=== PATIENT | male | born 1940 | race Caucasian/White ===

== ENCOUNTER → 2016-03-12 | Outpatient (CLI) | payer MEDICARE ==
[~2016-03-12] MED LIST: ACHD5005 PO; ASPI-84 PO; AZTH250C PO; BENZ100C18 PO; BNZ40T; BP MED; CEPH500C PO; CPR500T PO; DOXA2TAB2 PO; DXZS4T PO; EZET1TAB36 PO; FISH1200 PO; HYDR-3583 PO; I VITE; LSNP20T PO; METR500T PO; MULT-275 PO; MULT-927 PO; OMEG1CAP51 PO; SIMV80TA3 PO; SULF1TAB35 PO; UBID1CAP51 PO; UBID300C PO; VIT1TABL83 PO; [UNRECOGNIZED DRUG - CODE] PO; [UNRECOGNIZED DRUG - REMARK]
--- OUTSIDE RECORDS SUMMARY | 2016-03-12 11:08 | XMS REPORT | Continuity of Care Document ---
Author Author [facility] Organization [facility] Address Unknown Phone Unavailable Care Team Providers Care Gis Scientist Name Role Phone Diana Valles III PCP [phone] Source Comments Some departments are not documenting in the electronic medical record. If you do not see the information that you expected, contact Release of Information in the Health Information Management department at [phone] for further assistance in locating additional records.[facility] Active Allergies and Adverse Reactions Allergen Noted Date Severity Reactions Comments Demerol 12/19/2008 ANAPHYLAXIS Reglan 12/19/2008 NAUSEA AND VOMITING Current Medications Prescription Sig. Disp. Refills Start End Date Status Date doxazosin (CARDURA) 2 mg Take 1 Tab by mouth Active tablet Daily. benazepril (LOTENSIN) 40 Take 1 Tab by mouth Active mg tablet Daily. EZETIMIBE/SIMVASTATIN Take 1 Tab by mouth Active (VYTORIN 10-80 PO) Daily. coenzyme Q10,+, (CO Q-10) Take 4 Caps by mouth Active 100 mg Cap Daily. (400mg) vitamins, multiple Cap Take 1 Cap by mouth Active Daily. VIT C/DL-E Take 1 Tab by mouth Active AC/LUT/COPPER/ZNOX Daily. (PRESERVISION PO) ibuprofen (MOTRIN) 200 mg Take 4 Tabs by mouth Active tablet Daily as needed for Pain. ASPIRIN/CAFFEINE (ANACIN Take 2 Tabs by mouth Active PO) Daily as needed. omeprazole DR,+, Take 1 Cap by mouth Active (PRILOSEC) 20 mg capsule Daily. aspirin EC 81 mg tablet Take 1 Tab by mouth 0 0 01/03/20 Active Daily. 09 oxycodone/acetaminophen Take 1-2 Tabs by mouth 40 0 /25/20 Active (PERCOCET) 5/325 mg Every 4 Hours as needed 09 tablet for Pain. hyoscyamine (LEVSIN/SL) 1 Tab Every 4 Hours as 30 0 01/04/20 Active 0.125 mg tablet needed. 09 senna/docusate Take 2 Tabs by mouth 30 0 01/04/20 Active (SENOKOT-S) 8.6/50 mg Daily. 09 tablet [place]-3 Fatty Take 1 Cap by mouth Twice 0 0 01/04/20 Active Acids-Vitamin E (FISH Daily. 09 OIL) 1,000 mg Cap levofloxacin (LEVAQUIN) Take 1 Tab by mouth Every 15 0 01/04/20 Active 250 mg tablet 24 Hours. 09 polymyxin/bacitracin/laura/ Apply to affected area 1 tube 0 01/04/20 Active HC (CORTISPORIN) 1 % Three Times Daily. 09 topical ointment oxybutynin XL (DITROPAN Take 1 Tab by mouth 15 0 01/04/20 Active XL) 15 mg tablet Daily. 09 Active Problems Problem Noted Date Prostate cancer (HCC) 01/03/2009 Social History Tobacco Use Types Packs/Day Years Used Date Former Smoker Comments: smoked cigars on and off till about 6 yrs ago Alcohol Use Drinks/Week oz/Week Comments No drank socially on weekends when young - not now Last Filed Vital Signs Vital Sign Reading Time Taken Blood Pressure 119/71 01/03/2009 3:00 PM SEASONING MIXER Pulse 78 01/03/2009 3:00 PM SEASONING MIXER Temperature 37.4 C (99.3 F) 01/03/2009 3:00 PM SEASONING MIXER Respiratory Rate - - Height 1.676 m (5' 6") 12/19/2008 12:00 PM SEASONING MIXER Weight 74.4 kg (164 lb 0.4 oz) 12/19/2008 12:00 PM SEASONING MIXER Body Mass Index 26.49 12/19/2008 12:00 PM SEASONING MIXER Oxygen Saturation 94% 01/03/2009 3:00 PM SEASONING MIXER Plan of Care Health Maintenance Due Date Last Done Comments Physical (Comprehensive) 08/30/1947 Exam Pertussis Vaccine 08/30/1951 Tetanus Vaccine 1957 Colorectal Cancer 1990 Screening Shingles Vaccine 2000 Prevnar/Pneumovax (#1) 2005 Influenza Vaccine 10/11/2015 Results from Last 3 Months Not on file
--- NOTE | 2016-03-12 15:15 | Diagnostic Imaging Report ---
Bilateral hand radiographs. INDICATION: Bilateral hand pain. FINDINGS: Left hand: There are advanced degenerative changes in the wrist involving the radiocarpal and intercarpal joints particularly along the radial aspect of the wrist. There is also widening of the scapholunate interval with displacement of the lunate and sclerotic changes which may relate to osteonecrosis. There is an ulna minus deformity. 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 The MCP joints demonstrate no significant arthritic changes or erosions. Mild degenerative changes at the DIP joints seen. Right hand: Sclerotic changes at the intercarpal joints along the radial aspect seen. There is widening of the scapholunate interval and secondary degenerative changes seen. There is mild degenerative change at the DIP joints. No significant arthritic changes at the MCP joints. No significant erosions seen to suggest rheumatoid arthritis. There is a radiopaque dense focus measuring 3 mm in the proximal aspect of the right index finger probably a metallic foreign body. It is near the radial cortex of the proximal phalanx shaft. 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 No erosive arthritis finding seen. Dictated by: Dictated on workstation # [id number]
== END ==
LOC: RAD 11:04
PROVIDERS: ATTEND Internal Medicine
DX: M19.032 Primary osteoarthritis, left wrist (principal)

== ENCOUNTER → 2016-07-03 | Outpatient (CLI) | payer MEDICARE ==
--- NOTE | 2016-07-03 16:11 | Diagnostic Imaging Report ---
PROCEDURE: CT abdomen without contrast. TECHNIQUE: Multiple contiguous axial images were obtained through the abdomen without the use of intravenous contrast. INDICATION: Incisional hernia. FINDINGS: The right lung base is unremarkable. There is significant elevation of the left hemidiaphragm with abdominal contents projecting at the mid to lower chest, not included in this exam. CT chest evaluation could be obtained if such evaluation is needed. The liver, the spleen, the adrenals, and the pancreas appear grossly unremarkable for an unenhanced exam. The gallbladder demonstrates no calcified stones. There is prominent distention of the gallbladder however. No pericholecystic fluid or wall thickening is seen. 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 The abdominal aorta is normal in caliber. No paraaortic significantly enlarged lymph node is seen. There is a fat-containing supraumbilical ventral hernia with a 9 mm transverse by 1.1 cm craniocaudal defect size. Slight thickening of the hernia margin may relate to sequela of panniculitis or omental infarct. No free fluid or fluid collection in the abdomen is seen. The osseous structures demonstrate fusion hardware involving L2-L5 levels. IMPRESSION: 1. There is a relatively small fat-containing ventral hernia with 1.1 cm sized defect the to the right side of the midline and approximately 6.5 cm above the umbilicus. 2. Horseshoe kidney. 3. Significant chronic elevation of the left hemidiaphragm with stomach and other left subphrenic abdominal contents projecting into the lower to mid chest not included in this exam. Dictated by: Dictated on workstation # [id number]
== END ==
LOC: RAD 13:37
PROVIDERS: ATTEND Internal Medicine
DX: K43.2 Incisional hernia without obstruction or gangrene (principal); Q63.1 Lobulated, fused and horseshoe kidney
CPT/HCPCS: 74150

== ENCOUNTER 2016-07-25 08:09 | Outpatient (CLI) | payer MEDICARE ==
[~2016-07-25] VITALS: Ht 167.6 cm; Wt 70.8 kg
[2016-07-25 08:19] VITALS: BP 168/88
[2016-07-25] MEDS ORDERED: PRAV40TA2 PO (08:23)
[2016-07-25] MEDS ORDERED: OMEG-109 PO (08:23)
[2016-07-25] MEDS ORDERED: LISI10TA2 PO (08:23)
[2016-07-25] MEDS ORDERED: HYDR200T46 PO (08:23)
[2016-07-25 09:09] LABS: BASOPHILS % (AUTO) 0 % (0-10); EOSINOPHILS % (AUTO) 0 % (0-10); LYMPHOCYTES % (AUTO) 22 % (12-44); MEAN CORPUSCULAR HEMOGLOBIN 30 PG (25-34); MEAN CORPUSCULAR HGB CONC 34 G/DL (32-36); MEAN CORPUSCULAR VOLUME 90 FL (80-99); MEAN PLATELET VOLUME 11.2 FL (7.4-10.4); MONOCYTES # (AUTO) 0.6 X 10^3 (0.0-1.0); MONOCYTES % (AUTO) 13 % (0-12); NEUTROPHILS % (AUTO) 65 % (42-75); PLATELET COUNT 155 10^3/uL (130-400); RED BLOOD COUNT 4.18 10^6/uL (4.35-5.85); RED CELL DISTRIBUTION WIDTH 13.3 % (10.0-14.5); WHITE BLOOD COUNT 4.6 10^3/uL (4.3-11.0)
[2016-07-30] MEDS ORDERED: HYDR-3812 PO (14:16)
== END 2016-07-25 08:50 | disposition home or self-care (01) ==
LOC: PREOP 08:09
PROVIDERS: ATTEND Surgery
DX: Z01.818 Encounter for other preprocedural examination (principal); Z01.812 Encounter for preprocedural laboratory examination; Z11.2 Encounter for screening for other bacterial diseases; K43.9 Ventral hernia without obstruction or gangrene
CPT/HCPCS: 36415; 85025; 87081; 93005

== ENCOUNTER 2016-07-30 08:06 | Day surgery (SDC) | payer MEDICARE ==
[~2016-07-30] VITALS: Ht 167.6 cm; Wt 70.8 kg
[~2016-07-30 08:06] MED LIST changes: +HYDR200T46 PO; +LISI10TA2 PO; +OMEG-109 PO; +PRAV40TA2 PO
[2016-07-30] MEDS: LACTATED RINGERS 1,000 ML IV PRN ×2 (08:30→11:45)
[2016-07-30] MEDS ORDERED: CATHETER FLUSH 10 ML SYR IV PRN (09:00)
[2016-07-30] MEDS ORDERED: oxyCODONE ER 10 MG (OxyCONTIN CR) TAB PO ONE ×2 (09:00→14:15)
[2016-07-30] MEDS ORDERED: ceFAZolin 1 GM/NS 50 ML IVPB IV ONE ×2 (09:00)
[2016-07-30] MEDS ORDERED: KETOROLAC 30 MG/ML VIAL IV SCH (09:00)
[2016-07-30] MEDS ORDERED: CELECOXIB 100 MG (CeleBREX) CAP PO ONE ×2 (09:00→14:15)
[2016-07-30] MEDS ORDERED: ACETAMINOPHEN 500 MG TAB (TYLENOL) PO ONE ×2 (09:00→14:15)
[2016-07-30] MEDS ORDERED: PREGABALIN 75 MG (LYRICA) CAP PO ONE ×2 (09:00→14:15)
--- NOTE | 2016-07-30 09:13 | Progress Note-Pre Operative ---
Pre-Operative Progress Note H&P Reviewed The H&P was reviewed, patient examined and no changes noted. Date Seen by Provider: Jul 30, 2016 Time Seen by Provider: 09:13 Date H&P Reviewed: Jul 30, 2016 Time H&P Reviewed: 09:13 Pre-Operative Diagnosis: ventral hernia JANIS DUVALL MD Jul 30, 2016 9:13 am
[2016-07-30] MEDS ORDERED: FAMOTIDINE 20MG/2ML IV (PEPCID) IV ONE (09:15)
[2016-07-30] MEDS ORDERED: BUP/EPI 0.25% 1:200,000 (MARCAINE) 10 ML VIAL IJ ONE (09:44)
[2016-07-30] MEDS ORDERED: LIDOCAINE PF 2% 5 ML (XYLOCAINE) VIAL ONE (09:45)
[2016-07-30] MEDS ORDERED: proPOfol 200 MG/20 ML (DIPRIVAN) VIAL IV ONE (09:45)
[2016-07-30] MEDS ORDERED: MIDAZOLAM 2 MG/2 ML (VERSED) VIAL ONE (09:46)
[2016-07-30] MEDS ORDERED: fentaNYL INJECTION 100 MCG/2 ML AMP ONE (09:46)
[2016-07-30] MEDS ORDERED: SEVOFLURANE (ULTANE) 15 ML INHAL SOLN ONE ×4 (09:52→12:55)
[2016-07-30] MEDS ORDERED: ROCURONIUM 50 MG/5 ML (ZEMURON) VIAL IV ONE (09:52)
[2016-07-30] MEDS ORDERED: LACTATED RINGERS 1,000 ML IV ONE ×2 (09:52→12:55)
[2016-07-30] MEDS ORDERED: KETAMINE HCL 100 MG/ML 5 ML VIAL ONE (11:14)
[2016-07-30 12:21] VITALS: BP 162/92
[2016-07-30] MEDS ORDERED: PHENYLEPHRINE 100 MCG/ML 10 ML (ANESTHESIA) SYR ONE (12:21)
[2016-07-30] MEDS ORDERED: PHENYLEPHRINE INJ 10 MG/ML (NEO-SYNEPHRINE 1%) ONE (12:21)
[2016-07-30] MEDS ORDERED: NEOSTIGMINE (BLOXIVERZ ) 1 MG/1ML 10 ML VIAL ONE (12:55)
[2016-07-30] MEDS ORDERED: GLYCOPYRROLATE 0.2 MG/ML (ROBINUL) 2 ML VIAL ONE (12:55)
[2016-07-30] MEDS ORDERED: ONDANSETRON 4 MG/2 ML (SDV) Z0FRAN ONE (12:55)
[2016-07-30] MEDS ORDERED: ONDANSETRON 4 MG/2 ML (SDV) Z0FRAN IVP PRN (13:15)
[2016-07-30] MEDS: morphine INJ 10 MG/ML 1ML (SYR OR VIAL) IVP PRN ×2 (13:23→13:41)
[2016-07-30 14:00] VITALS: BP 165/93
--- NOTE | 2016-07-30 14:14 | Progress Note-Post Operative ---
Post-Operative Progess Note Surgeon (s)/High Tension Tester (s) Surgeon JANIS DUVALL MD High Tension Tester: Not applicable Pre-Operative Diagnosis ventral hernia Post-Operative Diagnosis Same Procedure & Operative Findings Date of Procedure 07/30/16 Procedure Performed/Findings robotic assisted repair with mesh Anesthesia Type Gen. Estimated Blood Loss Estimated blood loss (mL): Minimal Specimens/Packing Specimens Removed none JANIS DUVALL MD Jul 30, 2016 2:14 pm
[2016-07-30] MEDS ORDERED: morphine INJ 10 MG/ML 1ML (SYR OR VIAL) IV PRN (14:15)
[2016-07-30] MEDS ORDERED: HYDR-3812 PO ×2 (14:16)
--- NOTE | 2016-07-30 14:17 | Discharge Inst-Simple/Standard ---
Discharge Inst-Standard Discharge Medications New, Converted or Re-Newed RX: RX on Chart Patient Instructions/Follow Up Plan of Care/Instructions/FU: Dressings off in 48 hours. Follow-up in a month Activity as Tolerated: No Goal: No lifting over 10 pounds Discharge Diet: No Restrictions JANIS DUVALL MD Jul 30, 2016 2:17 pm
[2016-07-30] MEDS ORDERED: HYDR200T PO (14:54)
[2016-07-30 16:23] VITALS: BP 147/87
[2016-07-30] MEDS: HYDROXYCHLOROQUINE 200 MG (PLAQUENIL) TAB PO SCH (16:49)
[2016-07-30 20:03] VITALS: BP 126/72
--- NOTE | 2016-07-30 22:24 | OPERATIVE REPORT ---
DATE OF SERVICE: 07/30/2016 PREOPERATIVE DIAGNOSIS: Ventral hernia. POSTOPERATIVE DIAGNOSIS: Ventral hernia. OPERATION: Robotic-assisted repair of ventral hernia with mesh. SURGEON: Janis Duvall MD ANESTHESIA: General anesthesia. BLOOD LOSS: Minimal. FLUIDS: 1500 mL of crystalloids. TYPE OF WOUND: Type 1 (clean wound). INDICATION FOR PROCEDURE: This gentleman presented with a symptomatic ventral hernia just superior and lateral to the umbilicus. He was offered minimally invasive repair with robotic assistance and mesh reinforcement. Informed consent was obtained after reviewing the operative details. DESCRIPTION OF PROCEDURE: He was placed supine on the operating table and general anesthesia induced using an endotracheal tube. A gram of Ancef was administered intravenously as prophylaxis against wound infection. Sequential compression devices were placed around his legs to minimize the risk of venous thrombosis. Abdomen was prepared and draped in the usual sterile manner. Pneumoperitoneum was established using a Veress needle introduced over the left subcostal margin, along the mid clavicular line. Intraabdominal pressure was initially maintained at 15 mmHg. A 12 mm trocar was placed and anatomy visualized using the 30 degree high definition laparoscope associated with the Clarizeni system. Omentum was adherent to the midline along the upper abdomen. Under direct view, I placed another 12 mm trocar over the left side of the abdomen, along the mid axillary line, followed by an 8 mm trocar over the left lower quadrant. An additional 8 mm trocar was placed over the left subcostal margin far posteriorly, to facilitate triangulation. The left side of the patient's body was lifted up on a soft roll to facilitate triangulation of the robotic system. It was then docked in place. Omentum was taken down using scissors revealing a total of three defects between 1 and 2 cm in diameter along the upper abdomen. These were closed using 0 V-Loc suture in a continuous fashion. The repair was then reinforced using a polypropylene mesh measuring 8.5 x 13.4 cm in diameter. The mesh was held up using a self-retaining balloon system to facilitate fixation. The edges of the mesh were secured using 2-0 V-Loc sutures with robot assistance. Hemostasis was satisfactory and the operation concluded. Incisions were closed using #1 Vicryl for the muscular layer and 4-0 Vicryl for skin, in a subcuticular fashion. Marcaine 0.25% with epinephrine was infiltrated along the incisions, both preemptively and at the conclusion of the operation. He tolerated the procedure well, was extubated in the operating room and taken to the recovery room in stable condition. [place], sponges and instruments were correct. Job ID: [id number] DocumentID: [id number] Dictated Date: 07/30/2016 14:03:30 Chin Strap Maker Date: 07/30/2016 22:12:17 Dictated By: JANIS DUVALL MD MTDD
[2016-07-30 23:20] VITALS: BP 145/79
[2016-07-31 04:22] VITALS: BP 145/76
[2016-07-31] MEDS: HYDROXYCHLOROQUINE 200 MG (PLAQUENIL) TAB PO SCH ×2 (06:16→16:31)
[2016-07-31] MEDS: morphine INJ 10 MG/ML 1ML (SYR OR VIAL) IV PRN ×2 (07:51→13:02)
[2016-07-31 07:54] VITALS: BP 144/85
[2016-07-31] MEDS ORDERED: ASPIRIN E.C. 81 MG (ECOTRIN) TAB PO SCH (09:00)
[2016-07-31] MEDS ORDERED: NON-FORMULARY MEDICATION 1 EA EA (Pravastatin Sodium 40 MG) PO SCH (09:00)
[2016-07-31] MEDS ORDERED: lisINopril 10 MG (PRINIVIL) TAB PO SCH (09:00)
--- NOTE | 2016-07-31 11:52 | Progress Note-Standard ---
Standard Progress Note Progress Notes/Assess & Plan Date Seen by Provider: Jul 31, 2016 Time Seen by Provider: 09:20 Progress/Assessment & Plan Vital signs stable. Tolerating diet. Incisional pain inadequately controlled. We'll use fentanyl and possibly discharge this afternoon Final Diagnosis Ventral hernia JANIS DUVALL MD Jul 31, 2016 11:52
[2016-07-31 12:00] VITALS: BP 148/84
[2016-07-31] MEDS ORDERED: BISACODYL 10 MG SUPP (DULCOLAX) ONE (14:26)
--- NOTE | 2016-07-31 14:52 | Anesthesia-General Post-Op ---
General Patient Condition Mental Status/LOC: Same as Preop Cardiovascular: Satisfactory Nausea/Vomiting: Absent Respiratory: Satisfactory Pain: Controlled Complications: Absent Post Op Complications Complications None Follow Up Care/Instructions Patient Instructions None needed. Anesthesia/Patient Condition Patient Condition Patient is doing well, no complaints, stable vital signs, no apparent adverse anesthesia problems. No complications reported per nursing. CARLY GARCIA CRNA Jul 31, 2016 14:51
[2016-07-31 15:20] VITALS: BP 122/75
[2016-07-31] MEDS ORDERED: fentaNYL INJECTION 100 MCG/2 ML AMP IVP PRN (15:45)
[2016-07-31] MEDS ORDERED: KETOROLAC 15 MG/ML VIAL IVP ONE (15:45)
[2016-07-31] MEDS ORDERED: HYDROcodone/APAP 5 MG/325 MG (LORTAB) TAB PO PRN (15:45)
[2016-07-31] MEDS ORDERED: CALCIUM CARBONATE 500 MG (TUMS) TAB.CHEW ONE ×2 (17:03→18:26)
--- OUTSIDE RECORDS SUMMARY | 2016-07-31 18:06 | XMS REPORT | CCD ---
Author Author MARY GORDON Unknown Address [address] [facility] [address] [place], [place] [id number] Care Team Providers Care Blood Bank Laboratory Technologist Name Role Phone BARBARA CERVANTES, SAI Ortiz Attphys SAI JIMENEZ MD Prisurroopa Vital Signs Unknown or Not Available. Allergies Allergy Code Allergy Type Reaction Status REGLAN 9230 Drug allergy Active DEMEROL 073118 Drug allergy Active Procedures Unknown or Not Available. History of Immunizations Unknown or Not Available. Problems Problem Code Start Date Resolved Date Status DEGENERATIVE JOINT DISEASE OF RIGHT KNEE 71971 07/13/2013 Active Post surgical pain [id number] 07/13/2013 Active Results Unknown or Not Available. Active Medications Medication Code Dose Units Frequency Route Modification Start Date/Time Aspirin 325MG Oral Tablet, Enteric Coated 863379 1 TABLET EVERY 12 HOURS BY MOUTH 07/15/2013 16:22 Prescription Detail 1 TABLET BY MOUTH EVERY 12 HOURS begin 24hrs after the last xarelto dose APAP/Hydrocodone Bitartrate 325MG-10MG Oral Tablet 165343 1/2 - 1 TABLET NEEDED EVERY 4 HR BY MOUTH 07/2013 16:21 Prescription Detail 1/2 - 1 TABLET BY MOUTH NEEDED EVERY 4 HR Docusate Sodium 100MG Oral Capsule 8488993 100 MILLIGRAMS TWO TIMES A DAY BY MOUTH 07/15/2013 16:21 Prescription Detail 100 MILLIGRAMS BY MOUTH TWO TIMES A DAYHold with loose stools Aspirin 81MG Oral Tablet 140619 81 MILLIGRAMS DAILY ORAL 07/15/2013 16:20 Prescription Detail 81 MILLIGRAMS ORAL DAILY Hold until ASA EC 325 completed CALCIUM 0 1 EACH DAILY ORAL 07/15/2013 16:20 Prescription Detail 1 EACH ORAL DAILY COQ10 0 100 MILLIGRAMS EVENING ORAL 07/15/2013 16:20 Prescription Detail 100 MILLIGRAMS ORAL EVENING Doxazosin 2MG Oral Tablet 954291 2 MILLIGRAMS EVENING ORAL 07/15/2013 16:20 Prescription Detail 2 MILLIGRAMS ORAL EVENING FISH OIL-D3 0 1200 MILLIGRAMS DAILY ORAL 07/15/2013 16:20 Prescription Detail 1200 MILLIGRAMS ORAL DAILY Lisinopril 20MG Oral Tablet 216194 20 MILLIGRAMS EVENING ORAL 07/15/2013 16:20 Prescription Detail 20 MILLIGRAMS ORAL EVENING Multivitamin Oral Tablet 0159809 1 EACH DAILY ORAL 07/15/2013 16:20 Prescription Detail 1 EACH ORAL DAILY Simvastatin 80MG Oral Tablet 541480 80 MILLIGRAMS EVENING ORAL 07/15/2013 16:20 Prescription Detail 80 MILLIGRAMS ORAL EVENING VISION FORMULA 0 1 EACH DAILY ORAL 07/15/2013 16:20 Prescription Detail 1 EACH ORAL DAILY VITAMIN B-12 0 1 EACH DAILY ORAL 07/15/2013 16:20 Prescription Detail 1 EACH ORAL DAILY Medications Administered During Visit Unknown or Not Available. 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 Discharge Instructions You were admitted to [facility] on 06/21/2015 07:53 with a principal diagnosis of Secondary osteoarthritis, left wrist You were discharged from [facility] on 06/21/2015 09:00 Should you have any questions prior to discharge, please contact a member of your healthcare team. If you have left the hospital and have any questions, please contact your primary care physician. Chief Complaint and Reason For Visit Chief Complaint Date of Onset ARM PAIN ARM SWELLING Function Status Unknown or Not Available. Plan of Care Unknown or Not Available. Referral/Transition of Care Unknown or Not Available.
--- OUTSIDE RECORDS SUMMARY | 2016-07-31 18:06 | XMS REPORT | Continuity of Care Document ---
Author Author [facility] Organization [facility] Address Unknown Phone Unavailable Care Team Providers Care Media Center Specialist Name Role Phone Cyrus Valles III PCP [phone] Source Comments Some departments are not documenting in the electronic medical record. If you do not see the information that you expected, contact Release of Information in the Health Information Management department at [phone] for further assistance in locating additional records.[facility] Active Allergies and Adverse Reactions Allergen Noted [...] Take 1 Tab by mouth 0 0 25/20 Active Daily. 09 oxycodone/acetaminophen Take 1-2 Tabs by mouth 40 0 11/25/20 Active (PERCOCET) 5/325 mg Every 4 Hours as needed 09 tablet for Pain. hyoscyamine (LEVSIN/SL) 1 Tab Every 4 Hours as 30 0 01/04/20 Active 0.125 mg tablet needed. 09 senna/docusate Take 2 Tabs by mouth 30 0 01/04/20 Active (SENOKOT-S) 8.6/50 mg Daily. 09 tablet [place]-3 Fatty Take 1 Cap by mouth Twice [...] Taken Blood Pressure 119/71 01/03/2009 3:00 PM RETAIL CLERK Pulse 78 01/03/2009 3:00 PM RETAIL CLERK Temperature 37.4 C (99.3 F) 01/03/2009 3:00 PM RETAIL CLERK Respiratory Rate - - Height 1.676 m (5' 6") 12/19/2008 12:00 PM RETAIL CLERK Weight 74.4 kg (164 lb 0.4 oz) 12/19/2008 12:00 PM RETAIL CLERK Body Mass Index 26.49 12/19/2008 12:00 PM RETAIL CLERK Oxygen Saturation 94% 01/03/2009 3:00 PM RETAIL CLERK Plan of Care Health Maintenance Due Date Last Done Comments Physical (Comprehensive) 08/30/1947 Exam Pertussis Vaccine 08/30/1951 Tetanus Vaccine 1957 Colorectal Cancer 1990 Screening Shingles Vaccine 2000 Abdominal Aortic Aneurysm 2005 Screening Prevnar/Pneumovax (#1) 2005 Influenza Vaccine 10/10/2016 Results from Last 3 Months Not on file
--- OUTSIDE RECORDS SUMMARY | 2016-07-31 18:06 | XMS REPORT | CCD ---
Author Author MAGALY LEAHY Organization Unknown Address [address] [facility] [facility] [address] [place], [place] [id number] Care Team Providers Care Rubber Roller Grinder Name Role Phone BARBARA CERVANTES, SAI Ortiz Attphys SAI JIMENEZ MD Prisurroopa Vital Signs Unknown or Not Available. Allergies Allergy Code Allergy Type Reaction Status REGLAN 9230 Drug allergy Active DEMEROL 981692 Drug allergy Active Procedures Unknown or Not Available. History of Immunizations Unknown or Not Available. Problems Problem Code Start Date Resolved Date Status DEGENERATIVE JOINT DISEASE OF RIGHT KNEE 79310 07/13/2013 Active Post surgical pain [id number] 07/13/2013 Active Results Unknown or Not Available. Active Medications Medication Code Dose Units Frequency Route Modification Start Date/Time Aspirin 325MG Oral Tablet, Enteric Coated 919649 1 TABLET EVERY 12 HOURS BY MOUTH 07/15/2013 16:22 Prescription Detail 1 TABLET BY MOUTH EVERY 12 HOURS begin 24hrs after the last xarelto dose APAP/Hydrocodone Bitartrate 325MG-10MG Oral Tablet 107036 1/2 - 1 TABLET NEEDED EVERY 4 HR BY MOUTH 07/2013 16:21 Prescription Detail 1/2 - 1 TABLET BY MOUTH NEEDED EVERY 4 HR Docusate Sodium 100MG Oral Capsule 3531457 100 MILLIGRAMS TWO TIMES A DAY BY MOUTH 07/15/2013 16:21 Prescription Detail 100 MILLIGRAMS BY MOUTH TWO TIMES A DAYHold with loose stools Aspirin 81MG Oral Tablet 405259 81 MILLIGRAMS DAILY ORAL 07/15/2013 16:20 Prescription Detail 81 MILLIGRAMS ORAL DAILY Hold until ASA EC 325 completed CALCIUM 0 1 EACH DAILY ORAL 07/15/2013 16:20 Prescription Detail 1 EACH ORAL DAILY COQ10 0 100 MILLIGRAMS EVENING ORAL 07/15/2013 16:20 Prescription Detail 100 MILLIGRAMS ORAL EVENING Doxazosin 2MG Oral Tablet 496134 2 MILLIGRAMS EVENING ORAL 07/15/2013 16:20 Prescription Detail 2 MILLIGRAMS ORAL EVENING FISH OIL-D3 0 1200 MILLIGRAMS DAILY ORAL 07/15/2013 16:20 Prescription Detail 1200 MILLIGRAMS ORAL DAILY Lisinopril 20MG Oral Tablet 460279 20 MILLIGRAMS EVENING ORAL 07/15/2013 16:20 Prescription Detail 20 MILLIGRAMS ORAL EVENING Multivitamin Oral Tablet 4131512 1 EACH DAILY ORAL 07/15/2013 16:20 Prescription Detail 1 EACH ORAL DAILY Simvastatin 80MG Oral Tablet 400471 80 MILLIGRAMS EVENING ORAL 07/15/2013 16:20 Prescription Detail 80 MILLIGRAMS ORAL EVENING VISION FORMULA 0 1 EACH DAILY ORAL 07/15/2013 16:20 Prescription Detail 1 EACH ORAL DAILY VITAMIN B-12 0 1 EACH DAILY ORAL 07/15/2013 16:20 Prescription Detail 1 EACH ORAL DAILY Medications Administered During Visit Unknown or Not Available. Encounters Encounter Diagnosis Diagnosis Code Start Date Secondary osteoarthritis, left wrist [id number] 06/21/2015 Social History Smoking Status Code Start Date End Date Never smoker [id number] Patient Decision Aids Unknown or Not Available. Discharge Instructions You were admitted to [facility] on 06/21/2015 07:53 with a principal diagnosis of Secondary osteoarthritis, left wrist You were discharged from [facility] on 06/21/2015 09:00 Should you have any [...]
--- OUTSIDE RECORDS SUMMARY | 2016-07-31 18:06 | XMS REPORT | Continuity of Care Document ---
Author Author [facility] Organization [facility] Address Unknown Phone Unavailable Allergies Medications Problems Procedures Results Encounters ACCT No. Visit Date/Time Discharge Status Pt. Type Provider Facility Loc./Unit Complaint [id number] 07/13/2013 05:47:09 07/13/2013 23: 59:59 CLS Outpatient Ayaz Wang
[2016-07-31 19:08] VITALS: BP 122/75
[2016-07-31] MEDS ORDERED: SIMvastatin 20 MG (ZOCOR) TAB PO SCH (21:00)
== END 2016-07-31 19:23 | disposition home or self-care (01) ==
LOC: SDC 08:06 → 4TH 14:25 → ENPENDDIS 07-31 10:00 → SDC 07-31 19:23
PROVIDERS: ATTEND Surgery
DX: K40.90 Unilateral inguinal hernia, without obstruction or gangrene, not specified as recurrent (principal); I10 Essential (primary) hypertension; I25.10 Atherosclerotic heart disease of native coronary artery without angina pectoris; E78.5 Hyperlipidemia, unspecified; Z85.46 Personal history of malignant neoplasm of prostate; Z96.651 Presence of right artificial knee joint; Z95.1 Presence of aortocoronary bypass graft; Z96.642 Presence of left artificial hip joint; Z79.82 Long term (current) use of aspirin; Z79.899 Other long term (current) drug therapy; M06.9 Rheumatoid arthritis, unspecified; Z95.5 Presence of coronary angioplasty implant and graft; K21.9 Gastro-esophageal reflux disease without esophagitis

== ENCOUNTER 2016-08-03 07:08 | Emergency (ER) | payer MEDICARE ==
[~2016-08-03] VITALS: Ht 167.6 cm; Wt 68.0 kg
[~2016-08-03 07:08] MED LIST changes: +HYDR-3812 PO; +HYDR200T PO
[2016-08-03 09:08] LABS: BASOPHILS % (AUTO) 0 % (0-10); EOSINOPHILS # (AUTO) 0.1 10^3/uL (0.0-0.3); EOSINOPHILS % (AUTO) 1 % (0-10); LYMPHOCYTES # (AUTO) 0.8 X 10^3 (1.0-4.0); LYMPHOCYTES % (AUTO) 18 % (12-44); MEAN CORPUSCULAR HEMOGLOBIN 31 PG (25-34); MEAN CORPUSCULAR HGB CONC 34 G/DL (32-36); MEAN CORPUSCULAR VOLUME 91 FL (80-99); MEAN PLATELET VOLUME 11.4 FL (7.4-10.4); MONOCYTES # (AUTO) 0.5 X 10^3 (0.0-1.0); MONOCYTES % (AUTO) 12 % (0-12); NEUTROPHILS # (AUTO) 2.9 X 10^3 (1.8-7.8); NEUTROPHILS % (AUTO) 68 % (42-75); PLATELET COUNT 170 10^3/uL (130-400); RED BLOOD COUNT 4.16 10^6/uL (4.35-5.85); WHITE BLOOD COUNT 4.2 10^3/uL (4.3-11.0)
--- NOTE | 2016-08-03 09:18 | Diagnostic Imaging Report ---
INDICATION: Status post hernia surgery on 07/30/16. Persistent abdominal pain and constipation Supine and upright views of the abdomen show air-filled loops of large and small bowel with no bowel wall edema evident. There remains some free intraperitoneal air which could be residual of the recent surgery. Perforation cannot totally be excluded but no bowel wall edema is seen and the bowel gas pattern is more suggestive of an ileus rather than an obstruction. No mass or calculus is seen. IMPRESSION: There are air-filled loops of large and small bowel which are likely related to an ileus. There remains some free intraperitoneal air present. Recommend continued followup. Dictated by: Dictated on workstation # [id number]
[2016-08-03 09:19] LABS: ALANINE AMINOTRANSFERASE 19 U/L (0-55); ALBUMIN 3.6 GM/DL (3.2-4.5); ANION GAP 8 MMOL/L (5-14); ASPARTATE AMINO TRANSFERASE 28 U/L (5-34); BILIRUBIN,TOTAL 0.6 MG/DL (0.1-1.0); BLOOD UREA NITROGEN 16 MG/DL (7-18); BUN/CREATININE RATIO 19 (0-20); CALCIUM 11.5 MG/DL (8.5-10.1); CARBON DIOXIDE 25 MMOL/L (21-32); CHLORIDE 107 MMOL/L (98-107); CREATININE SERUM 0.83 MG/DL (0.60-1.30); GFR ESTIMATED > 60; GLUCOSE 117 MG/DL (70-105); HEMOLYSIS 36 (-100-29); ICTERUS 0.9 (-100-1.9); LIPEMIA 3 (-100-49); POTASSIUM 4.4 MMOL/L (3.6-5.0); SODIUM 140 MMOL/L (135-145); TOTAL PROTEIN 6.8 GM/DL (6.4-8.2)
[2016-08-03] MEDS ORDERED: IOHEXOL 350 MG/ML 100 ML (OMNIPAQUE 350) VIAL IV ONE (09:45)
[2016-08-03] MEDS ORDERED: NS 100 ML (IVPB) BAG IV ONE (09:45)
[2016-08-03 10:16] LABS: BILIRUBIN,URINE NEGATIVE (NEGATIVE); KETONES,URINE NEGATIVE (NEGATIVE); LEUKOCYTE ESTERASE ,URINE NEGATIVE (NEGATIVE); NITRITE,URINE NEGATIVE (NEGATIVE); PH,URINE 7 (5-9); PROTEIN,URINE NEGATIVE (NEGATIVE); UROBILINOGEN,URINE NORMAL (NORMAL)
--- NOTE | 2016-08-03 10:25 | Diagnostic Imaging Report ---
PROCEDURE: CT abdomen and pelvis with contrast. TECHNIQUE: Multiple contiguous axial images were obtained through the abdomen and pelvis after administration of intravenous contrast. INDICATION: Pain, hernia repair 07/30/2016. COMPARISON: 07/03/2016. FINDINGS: There is subcutaneous emphysema dissecting along the left greater than right abdominal pelvic anterior wall. There is a moderate amount of pneumoperitoneum in the anti-dependent upper abdomen. This is greater than typically seen. Four days postop. A visceral perforation could not be excluded. Consider short-term followup. There is elevation of the left hemidiaphragm resulting in basilar atelectasis. 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 There is diverticuli in the sigmoid colon without definite diverticulitis. There is no abscess or drainable fluid collection. The right paramedian supraumbilical omental hernia is no longer identified and no herniated viscus at today's study. The gallbladder is distended, no biliary dilatation. The liver is negative. There is no adrenal mass. The unobstructed renal moieties stable. The spleen is negative. The pancreas and peripancreatic fat unremarkable. No biliary ductal dilatation. IMPRESSION: Diffuse subcutaneous edema as well as moderate volume of pneumoperitoneum. The free air volume is greater than would be expected given the recent surgery but could reflect delayed resorption of air insufflation at laparoscopic study. The possibility of hollow visceral perforation could not be entirely excluded. No focal large or small bowel irregularity. There is no evidence for a bowel obstruction. No abscess or drainable fluid collection is found. Resolution of previous supraumbilical right paramedian ventral hernia. Severe elevation of the left hemidiaphragm, chronic. If there is clinical suspicion for hollow visceral perforation, consider a repeat exam with good oral contrast and/or rectal contrast. Dictated by: Dictated on workstation # [id number]
[2016-08-03] MEDS ORDERED: KETOROLAC 30 MG/ML VIAL IVP ONE (11:00)
--- NOTE | 2016-08-03 11:02 | ED Abdominal Pain ---
General Chief Complaint: Abdominal/GI Problems Stated Complaint: PAIN FROM HERNIA SURG Nursing Triage Note: AMB TO ED REPORTS HAD HERNIA SURG ON THU BY DR DUVALL HAVING ABD PAIN TODAY. Sepsis Screen: No Definite Risk Source of Information: Patient Exam Limitations: No Limitations History of Present Illness Time Seen By Provider: 08:46 Initial Comments This 75-year-old gentleman presents to the emergency room with increasing abdominal pain after having a robotic-assisted ventral hernia repair on July [address] Duvall. He reports having difficulty producing bowel movements even with milk of magnesia and suppositories. He has been taking hydrocodone. His last dose was sometime before 03:00. His pain has worsened on the right side of his abdomen and he feels bloated. He denies any fever or vomiting. He has been a little nauseated. Incision site appears clean, dry and intact. Patient is immunocompromised taking Plaquenil for rheumatoid arthritis. Allergies and Home Medications Allergies Coded Allergies: meperidine (Unverified Allergy, Unknown, 06/11/06) metoclopramide (Unverified Allergy, Unknown, 06/11/06) Home Medications Aspirin 81 Mg Tablet., 81 MG PO DAILY, (Reported) Hydrocodone/Acetaminophen 1 Each Tablet, 1-2 TAB PO 4-6HR PRN for PAIN, #30 Ref 0 Prescribed by: JANIS DUVALL on 07/30/16 1416 Hydroxychloroquine Sulfate 200 Mg Tablet, 200 MG PO BID, (Reported) Lisinopril 10 Mg Tablet, 10 MG PO DAILY, (Reported) Multivitamins W-Minerals 1 Each Tablet, 1 TAB PO DAILY, (Reported) [place]-3 Fatty Acids/Fish Oil 1 Each Capsule, 1,200 MG PO DAILY, (Reported) Pravastatin Sodium 40 Mg Tablet, 40 MG PO DAILY, (Reported) Ubidecarenone/Vit E Acetate 1 Each Capsule, 100 MG PO DAILY, (Reported) Vit A,C & E/Lutein/Minerals 1 Each Tablet, 1 TAB PO DAILY, (Reported) Review of Systems Constitutional: no symptoms reported EENTM: No Symptoms Reported Respiratory: No Symptoms Reported Cardiovascular: No Symptoms Reported Gastrointestinal: See HPI Genitourinary: No Symptoms Reported Musculoskeletal: no symptoms reported Skin: no symptoms reported Psychiatric/Neurological: No Symptoms Reported Endocrine: No Symptoms Reported Past Tclvnzr-Smdjwz-Nfxxvp Hx Patient Social History Alcohol Use: Denies Use Recreational Drug Use: No Smoking Status: Never a Smoker Recent Foreign Travel: No Contact w/Someone Who Travel: No Recent Infectious Disease Expo: No Recent Hopitalizations: No Immunizations Up To Date Date of Pneumonia Vaccine: Nov 10, 2011 Date of Influenza Vaccine: Nov 10, 2011 Seasonal Allergies Seasonal Allergies: No Surgeries HX Surgeries: Yes (CABG/HERNIA REP, R TKR, cyst removed in stomach, Left hip replaced x2,) Surgeries: CABG, Coronary Stent, Joint Replacement, Orthopedic, Prostatectomy Respiratory Hx Respiratory Disorders: No Cardiovascular Hx Cardiac Disorders: Yes ([place] 2011) Cardiac Disorders: Coronary Artery Disease, Heart Attack, Hypertension Neurological Hx Neurological Disorders: No Reproductive System Hx Reproductive Disorders: No Sexually Transmitted Disease: No Genitourinary Hx Genitourinary Disorders: No Gastrointestinal Hx Gastrointestinal Disorders: Yes Gastrointestinal Disorders: Abdominal Hernia, Diverticulosis Musculoskeletal Hx Musculoskeletal Disorders: Yes Musculoskeletal Disorders: Arthritis, Rheumatoid Arthritis Endocrine Hx Endocrine Disorders: No HEENT HX ENT Disorders: No HEENT Disorders: Cataract Cancer Hx Cancer: Yes (PROSTATE CA) Cancer: Skin Psychosocial Hx Psychiatric Problems: No Integumentary HX Skin/Integumentary Disorder: No Blood Transfusions Hx Blood Disorders: No Physical Exam Vital Signs VS - Last 72 Hours, by Label 08/03/16 08/03/16 08/03/16 08:38 11:09 11:20 Temp 98.3 98.3 Pulse 68 71 Resp 18 18 B/P (MAP) 165/81 Pulse Ox 94 98 O2 Delivery Room Air Room Air Capillary Refill : Less Than 3 Seconds General Appearance: WD/WN, no apparent distress HEENT: PERRL/EOMI, normal ENT inspection Neck: normal inspection Respiratory: lungs clear, normal breath sounds, no respiratory distress, no accessory muscle use Cardiovascular: regular rate, rhythm, no edema, no murmur Gastrointestinal: normal bowel sounds, soft, no organomegaly, tenderness ( Right central abdomen) Extremities: normal inspection, no pedal edema 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, no motor/sensory deficits, alert, normal mood/affect, oriented x 3 Skin: normal color, warm/dry, other (Vision clean dry and intact) Progress/Results/Core Measures Results/Orders Lab Results Laboratory Tests Test 08/03/16 08:50 08/03/16 10:05 Range/Units White Blood Count 4.2 L 4.3-11.0 10^3/uL Red Blood Count 4.16 L 4.35-5.85 10^6/uL Hemoglobin 12.7 L 13.3-17.7 G/DL Hematocrit 38 L 40-54 % Mean Corpuscular Volume 91 80-99 FL Mean Corpuscular Hemoglobin 31 25-34 PG Mean Corpuscular Hemoglobin Concent 34 32-36 G/DL Red Cell Distribution Width 13.0 10.0-14.5 % Platelet Count 170 130-400 10^3/uL Mean Platelet Volume 11.4 H 7.4-10.4 FL Neutrophils (%) (Auto) 68 42-75 % Lymphocytes (%) (Auto) 18 12-44 % Monocytes (%) (Auto) 12 0-12 % Eosinophils (%) (Auto) 1 0-10 % Basophils (%) (Auto) 0 0-10 % Neutrophils # (Auto) 2.9 1.8-7.8 X 10^3 Lymphocytes # (Auto) 0.8 L 1.0-4.0 X 10^3 Monocytes # (Auto) 0.5 0.0-1.0 X 10^3 Eosinophils # (Auto) 0.1 0.0-0.3 10^3/uL Basophils # (Auto) 0.0 0.0-0.1 10^3/uL Sodium Level 140 135-145 MMOL/L Potassium Level 4.4 3.6-5.0 MMOL/L Chloride Level 107 98-107 MMOL/L Carbon Dioxide Level 25 21-32 MMOL/L Anion Gap 8 5-14 MMOL/L Blood Urea Nitrogen 16 7-18 MG/DL Creatinine 0.83 0.60-1.30 MG/DL Estimat Glomerular Filtration Rate > 60 BUN/Creatinine Ratio 19 0-20 Glucose Level 117 H 70-105 MG/DL Calcium Level 11.5 H 8.5-10.1 MG/DL Total Bilirubin 0.6 0.1-1.0 MG/DL Aspartate Amino Transf (AST/SGOT) 28 5-34 U/L Alanine Aminotransferase (ALT/SGPT) 19 0-55 U/L Alkaline Phosphatase 73 40-136 U/L Total Protein 6.8 6.4-8.2 GM/DL Albumin 3.6 3.2-4.5 GM/DL Urine Color YELLOW Urine Clarity SLIGHTLY CLOUDY Urine pH 7 5-9 Urine Specific [place] 1.015 L 1.016-1.022 Urine Protein NEGATIVE NEGATIVE Urine Glucose (UA) NEGATIVE NEGATIVE Urine Ketones NEGATIVE NEGATIVE Urine Nitrite NEGATIVE NEGATIVE Urine Bilirubin NEGATIVE NEGATIVE Urine Urobilinogen NORMAL NORMAL MG/DL Urine Leukocyte Esterase NEGATIVE NEGATIVE Urine RBC (Auto) NEGATIVE NEGATIVE Urine RBC NONE /HPF Urine WBC NONE /HPF Urine Crystals PRESENT H /LPF Urine Amorphous Sediment LARGE PAZ PHOSPHATE H /LPF Urine Bacteria NEGATIVE /HPF Urine Casts NONE /LPF Urine Mucus NEGATIVE /LPF Urine Culture Indicated NO My Orders Orders - MOISES FERNANDEZ MD Abdomen, Flat & Upright/Decub (08/03/16 09:03) Cbc With Automated Diff (08/03/16 09:03) Comprehensive Metabolic Panel (08/03/16 09:03) Ua Culture If Indicated (08/03/16 09:03) Ct Abdomen/Pelvis W (08/03/16 09:42) Iohexol Injection (Omnipaque 350 Mg/Ml 1 (08/03/16 09:45) Ns (Ivpb) (Sodium Chloride 0.9% Ivpb Bag (08/03/16 09:45) Ketorolac Injection (Toradol Injection) (08/03/16 11:00) Medications Given in ED Vital Signs/I&O Vital Sign - Last 12Hours 08/03/16 08/03/16 08/03/16 08:38 11:09 11:20 Temp 98.3 98.3 Pulse 68 71 Resp 18 18 B/P (MAP) 165/81 Pulse Ox 94 98 O2 Delivery Room Air Room Air Blood Pressure Mean: 109 Progress Note : Progress Note Abnormal gas pattern on the x-ray and the fact the patient is on Plaquenil prompted CT scan. See CT report. Case reviewed with Dr. Martinez who does not feel repeating the CT with oral contrast is necessary at this time. If symptoms worsen, patient should return and repeat CT will be considered at that time. Follow-up with Dr. Duvall tomorrow was recommended. Patient has MiraLAX at home and was advised to increase frequency. A dose of Toradol was administered prior to dismissal. Diagnostic Imaging Diagonstic Imaging: Xray Plain Films/CT/US/NM/MRI: abdomen, pelvis Comments Abdominal x-ray viewed by me and report reviewed. See report below: NAME: DEJARAYMOND JORDAN [facility] REC#: [id number] PT STATUS: REG ER : 1940 PHYSICIAN: MOISES FERNANDEZ MD ADMIT DATE: 08/03/16/ER Signed Date of Exam: 08/03/16 ABDOMEN, FLAT & UPRIGHT/DECUB INDICATION: Status post hernia surgery on 07/30/16. Persistent abdominal pain and constipation Supine and upright views of the abdomen show air-filled loops of large and small bowel with no bowel wall edema evident. There remains some free intraperitoneal air which could be residual of the recent surgery. Perforation cannot totally be excluded but no bowel wall edema is seen and the bowel gas pattern is more suggestive of an ileus rather than an obstruction. No mass or calculus is seen. IMPRESSION: There are air-filled loops of large and small bowel which are likely related to an ileus. There remains some free intraperitoneal air present. Recommend continued followup. Dictated by: Dictated on workstation # [id number] Dict: 08/03/16914 Trans: 08/03/16922 Interpreted by: JOSH BREAUX MD Electronically signed by: JOSH BREAUX MD 08/03/16922 Diagonstic Imaging: CT Plain Films/CT/US/NM/MRI: abdomen, pelvis Comments CT abdomen and pelvis viewed by me and report reviewed. See report below: NAME: RAYMOND SHORT [facility] REC#: [id number] PT STATUS: REG ER : 1940 PHYSICIAN: MOISES FERNANDEZ MD ADMIT DATE: 08/03/16/ER Signed Date of Exam: 08/03/16 CT ABDOMEN/PELVIS W PROCEDURE: CT abdomen and pelvis with contrast. TECHNIQUE: Multiple contiguous axial images were obtained through the abdomen and pelvis after administration of intravenous contrast. INDICATION: Pain, hernia repair 07/30/2016. COMPARISON: 07/03/2016. FINDINGS: There is subcutaneous emphysema dissecting along the left greater than right abdominal pelvic anterior wall. There is a moderate amount of pneumoperitoneum in the anti-dependent upper abdomen. This is greater than typically seen. Four days postop. A visceral perforation could not be excluded. Consider short-term followup. There is elevation of the left hemidiaphragm resulting in basilar atelectasis. 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 There is diverticuli in the sigmoid colon without definite diverticulitis. There is no abscess or drainable fluid collection. The right paramedian supraumbilical omental hernia is no longer identified and no herniated viscus at today's study. The gallbladder is distended, no biliary dilatation. The liver is negative. There is no adrenal mass. The unobstructed renal moieties stable. The spleen is negative. The pancreas and peripancreatic fat unremarkable. No biliary ductal dilatation. IMPRESSION: Diffuse subcutaneous edema as well as moderate volume of pneumoperitoneum. The free air volume is greater than would be expected given the recent surgery but could reflect delayed resorption of air insufflation at laparoscopic study. The possibility of hollow visceral perforation could not be entirely excluded. No focal large or small bowel irregularity. There is no evidence for a bowel obstruction. No abscess or drainable fluid collection is found. Resolution of previous supraumbilical right paramedian ventral hernia. Severe elevation of the left hemidiaphragm, chronic. If there is clinical suspicion for hollow visceral perforation, consider a repeat exam with good oral contrast and/or rectal contrast. Dictated by: Dictated on workstation # [id number] Dict: 08/03/16 1005 Trans: 08/03/16 1028 Interpreted by: SHIKHA DIAS Electronically signed by: SHIKHA DIAS 08/03/16 1028 Departure Impression Impression: Primary Impression: Postoperative pain Additional Impression: Ileus Disposition: 01 HOME, SELF-CARE Condition: Improved Departure-Patient Inst. Decision time for Depature: 10:45 Referrals: ATUL JEFFREY DO (PCP/Family) Primary Care Physician Patient Instructions: Postoperative Ileus, Postoperative Pain (DC) Add. Discharge Instructions: Drink plenty of clear liquids and gradually advance your diet with bland food as tolerated. Avoid overeating. Take your Pepcid twice daily for the next 1-2 weeks. You may also use Tums if that is helpful. If you continue to have trouble producing bowel movements, you may increase your MiraLAX to 2 or 3 doses per day. If symptoms worsen or you develop new symptoms such as vomiting or fever greater than 100 return to the ER. Follow-up with Dr. Duvall in the morning. You may continue using your hydrocodone up to 2 tablets every 4 hours. All discharge instructions reviewed with patient and/or family. Voiced understanding. Copy Copies To 1: JANIS DUVALL MD, JOSHUA T MD Aug 03, 2016 11:02
[2016-08-03 11:20] VITALS: BP 168/94
--- OUTSIDE RECORDS SUMMARY | 2016-08-04 18:18 | XMS REPORT | Continuity of Care Document ---
Author Author [facility] Organization [facility] Address Unknown Phone Unavailable Care Team Providers Care Fagot Heater Name Role Phone Cyrus Valles III PCP [phone] Source Comments Some departments are not documenting in the electronic medical record. If you do not see the information that you expected, contact Release of Information in the Health Information Management department at [phone] for further assistance in locating additional records.[facility] Active Allergies and Adverse Reactions Allergen [...] Active (SENOKOT-S) 8.6/50 mg Daily. 09 tablet [place]-3 Fatty Take 1 Cap by mouth Twice [...] Taken Blood Pressure 119/71 01/03/2009 3:00 PM [employer] Pulse 78 01/03/2009 3:00 PM [employer] Temperature 37.4 C (99.3 F) 01/03/2009 3:00 PM [employer] Respiratory Rate - - Height 1.676 m (5' 6") 12/19/2008 12:00 PM [employer] Weight 74.4 kg (164 lb 0.4 oz) 12/19/2008 12:00 PM [employer] Body Mass Index 26.49 12/19/2008 12:00 PM [employer] Oxygen Saturation 94% 01/03/2009 3:00 PM [employer] Plan of Care Health Maintenance Due Date Last Done Comments Physical (Comprehensive) 08/30/1947 Exam Pertussis Vaccine 08/30/1951 Tetanus Vaccine 1957 Colorectal Cancer 1990 Screening Shingles Vaccine 2000 Abdominal Aortic Aneurysm 2005 Screening Prevnar/Pneumovax (#1) 2005 Influenza Vaccine 10/10/2016 Results from Last 3 Months Not on file
--- OUTSIDE RECORDS SUMMARY | 2016-08-04 18:18 | XMS REPORT | Continuity of Care Document ---
Author Author [facility] Organization [facility] Address Unknown Phone Unavailable Allergies Medications Problems Procedures Results Encounters ACCT No. Visit Date/Time Discharge Status Pt. Type Provider Facility Loc./Unit Complaint [id number] 07/13/2013 05:47:09 07/13/2013 23: 59:59 CLS Outpatient Ayaz Wang
== END 2016-08-03 11:27 | disposition home or self-care (01) ==
LOC: EDUNIT# 07:08 → ER 07:09
DX: G89.18 Other acute postprocedural pain (principal); R10.9 Unspecified abdominal pain; M06.9 Rheumatoid arthritis, unspecified; I25.2 Old myocardial infarction; I25.10 Atherosclerotic heart disease of native coronary artery without angina pectoris; I10 Essential (primary) hypertension; Z98.890 Other specified postprocedural states; Z87.19 Personal history of other diseases of the digestive system; Z79.82 Long term (current) use of aspirin; Z95.5 Presence of coronary angioplasty implant and graft; Z90.79 Acquired absence of other genital organ(s); Z85.46 Personal history of malignant neoplasm of prostate; Z85.828 Personal history of other malignant neoplasm of skin
CPT/HCPCS: 36415; 74020; 74177; 80053; 81000; 85025

== ENCOUNTER 2018-01-07 10:04 | Outpatient (CLI) | payer MEDICARE ==
[~2018-01-07] VITALS: Ht 167.6 cm; Wt 74.6 kg
[~2018-01-07 10:04] MED LIST changes: -HYDR-3812 PO; -HYDR200T PO; +HYDR200T78 PO
[2018-01-07] MEDS ORDERED: FISH1CAP15 PO (10:30)
[2018-01-07] MEDS ORDERED: DOXA1TAB2 PO (10:30)
[2018-01-07] MEDS ORDERED: MULT-1061 PO (10:30)
[2018-01-07] MEDS ORDERED: LISI-552 PO (10:30)
[2018-01-07] MEDS ORDERED: CALC-308 PO (10:30)
[2018-01-07] MEDS ORDERED: ASPI-999 PO (10:30)
[2018-01-07] MEDS ORDERED: UBID100C44 PO (10:30)
[2018-01-07] MEDS ORDERED: [UNRECOGNIZED DRUG - CODE] PO (10:30)
[2018-01-07] MEDS ORDERED: DOXA4TAB2 PO (10:36)
[2018-01-07 10:42] VITALS: BP 137/77
[2018-01-07 11:17] LABS: BASOPHILS % (AUTO) 0 % (0-10); EOSINOPHILS % (AUTO) 0 % (0-10); HEMATOCRIT 38 % (40-54); HEMOGLOBIN 12.8 G/DL (13.3-17.7); LYMPHOCYTES # (AUTO) 0.9 X 10^3 (1.0-4.0); LYMPHOCYTES % (AUTO) 17 % (12-44); MEAN CORPUSCULAR HEMOGLOBIN 31 PG (25-34); MEAN CORPUSCULAR HGB CONC 33 G/DL (32-36); MEAN CORPUSCULAR VOLUME 91 FL (80-99); MEAN PLATELET VOLUME 11.9 FL (7.4-10.4); MONOCYTES # (AUTO) 0.7 X 10^3 (0.0-1.0); MONOCYTES % (AUTO) 13 % (0-12); NEUTROPHILS # (AUTO) 3.8 X 10^3 (1.8-7.8); NEUTROPHILS % (AUTO) 70 % (42-75); PLATELET COUNT 155 10^3/uL (130-400); RED BLOOD COUNT 4.19 10^6/uL (4.35-5.85); RED CELL DISTRIBUTION WIDTH 13.3 % (10.0-14.5); WHITE BLOOD COUNT 5.4 10^3/uL (4.3-11.0)
[2018-01-07] MEDS ORDERED: HYDR-3812 PO (13:46)
[2018-01-07] MEDS ORDERED: CYAN10006 PO (14:14)
== END 2018-01-07 13:18 | disposition home or self-care (01) ==
LOC: PREOP 10:04
PROVIDERS: ATTEND Orthopaedic Surgery Orthopaedic Surgery of the Spine
DX: Z01.812 Encounter for preprocedural laboratory examination (principal); Z11.2 Encounter for screening for other bacterial diseases; M48.062 Spinal stenosis, lumbar region with neurogenic claudication; I10 Essential (primary) hypertension; Z22.322 Carrier or suspected carrier of Methicillin resistant Staphylococcus aureus
CPT/HCPCS: 36415; 85025; 86850; 86900; 86901; 87081

== ENCOUNTER 2018-01-11 08:30 | Inpatient (IN) | payer MEDICARE ==
[~2018-01-11] VITALS: Ht 167.6 cm; Wt 74.6 kg
[~2018-01-11 08:30] MED LIST changes: +ASPI-999 PO; +CALC-308 PO; +CYAN10006 PO; +DOXA1TAB2 PO; +DOXA4TAB2 PO; +FISH1CAP15 PO; +HYDR-3812 PO; +LISI-552 PO; +MULT-1061 PO; +UBID100C44 PO; +[UNRECOGNIZED DRUG - CODE] PO
[2018-01-11 08:35] VITALS: BP 142/90
[2018-01-11] MEDS ORDERED: ceFAZolin 2 GM IV Premixed 50 ML IV ONE (08:45)
[2018-01-11] MEDS: LACTATED RINGERS 1,000 ML IV PRN ×2 (09:15→12:08)
[2018-01-11] MEDS ORDERED: CATHETER FLUSH 10 ML SYR IV PRN (09:15)
[2018-01-11] MEDS ORDERED: MIDAZOLAM 2 MG/2 ML (VERSED) VIAL ONE (09:16)
[2018-01-11] MEDS ORDERED: DEXAMETHASONE 10 MG/ML (DECADRON) 1 ML VIAL ONE (09:16)
[2018-01-11] MEDS ORDERED: ONDANSETRON 4 MG/2 ML (SDV) Z0FRAN ONE (09:16)
[2018-01-11] MEDS ORDERED: proPOfol 200 MG/20 ML (DIPRIVAN) VIAL IV ONE (09:16)
[2018-01-11] MEDS ORDERED: fentaNYL INJECTION 100 MCG/2 ML AMP ONE (09:16)
[2018-01-11] MEDS ORDERED: PROPOFOL INJECTION 50 ML IV ONE (09:16)
[2018-01-11] MEDS ORDERED: SEVOFLURANE (ULTANE) 15 ML INHAL SOLN ONE (09:16)
[2018-01-11] MEDS ORDERED: SUCCINYLCHOLINE INJ 100 MG/5 ML SYR ONE (09:16)
--- OUTSIDE RECORDS SUMMARY | 2018-01-11 09:32 | XMS REPORT | Clinical Summary ---
Author Author [facility] Organization [facility] Address Unknown Phone Unavailable Care Team Providers Care Web Mobile Designer Name Role Phone Cyrus Valles MD PCP Diana Soto MD Unavailable Source Comments Some departments are not documenting in the electronic medical record. If you do not see the information that you expected, contact Release of Information in the Health Information Management department at [phone] for further assistance in locating additional records.[facility] Allergies Active Allergy Reactions Severity Noted Date Comments Meperidine ANAPHYLAXIS 12/19/2008 Metoclopramide NAUSEA AND VOMITING 12/19/2008 Current Medications Prescription Sig. Disp. Refills Start [...] Take 1 Tab by mouth 0 0 01/04/20 Active Daily. 09 oxycodone/acetaminophen Take 1-2 Tabs by mouth 40 0 01/04/20 Active (PERCOCET) 5/325 mg Every 4 Hours as needed 09 tablet for Pain. hyoscyamine (LEVSIN/SL) 1 Tab Every 4 Hours as 30 0 01/04/20 Active 0.125 mg tablet needed. 09 senna/docusate Take 2 Tabs by mouth 30 0 01/04/20 Active (SENOKOT-S) 8.6/50 mg Daily. 09 tablet [place]-3 Fatty Take 1 Cap by mouth Twice [...] Problem Noted Date Prostate cancer (HCC) 01/03/2009 Family History Medical History Relation Name Comments Heart Attack Father Cancer Mother Relation Name Status Comments Father Mother Social History Tobacco Use Types Packs/Day Years Used Date Former Smoker Comments: smoked cigars on and off till about 6 yrs ago Alcohol Use Drinks/Week oz/Week Comments No drank socially on weekends when young - not now Sex Assigned at Date Recorded Not on file Last Filed Vital Signs Vital Sign Reading Time Taken Blood Pressure 119/71 01/03/2009 3:00 PM [employer] Pulse 78 01/03/2009 3:00 PM [employer] Temperature 37.4 C (99.3 F) 01/03/2009 3:00 PM [employer] Respiratory Rate - - Oxygen Saturation 94% 01/03/2009 3:00 PM [employer] Inhaled Oxygen - - Concentration Weight 74.4 kg (164 lb 0.4 oz) 12/19/2008 12:00 PM [employer] Height 167.6 cm (5' 6") 12/19/2008 12:00 PM [employer] Body Mass Index 26.47 12/19/2008 12:00 PM [employer] Plan of Treatment Health Maintenance Due Date Last Done Comments PHYSICAL (COMPREHENSIVE) 08/30/1947 EXAM DTAP/TDAP VACCINES (1 - 1958 Tdap) SHINGLES RECOMBINANT 1990 VACCINE (1 of 2) PNEUMONIA (PCV13/PPSV23) 2005 VACCINES (1 of 2 - PCV13) INFLUENZA VACCINE 09/09/2017 Results Not on filefrom Last 3 Months
--- OUTSIDE RECORDS SUMMARY | 2018-01-11 09:33 | XMS REPORT | Continuity of Care Document ---
Author Author [facility] Organization [facility] Address Unknown Phone Unavailable Allergies Active Description Code Type Severity Reaction Onset Reported/Identified Relationship to Patient Clinical Status Yes DEMEROL [id number] BRANDNAME N/A N/A Yes REGLAN [id number] BRANDNAME N/A N/A Yes meperidine [id number] Drug Allergy Unknown N/A 06/11/2006 Yes metoclopramide [id number] Drug Allergy Unknown N/A 06/11/2006 Medications There is no data. Problems Date Dx Coded Attending Type Code Diagnosis Diagnosed By 01/16/2014 Ot 185 01/16/2014 Ot 553.1 01/16/2014 Ot 562.10 01/16/2014 Ot 753.3 01/16/2014 Ot V43.64 01/16/2014 Ot 722.52 03/09/2014 ATUL JEFFREY DO Ot 724.2 03/10/2014 ATUL JEFFREY DO Ot 724.2 05/25/2014 ATUL JEFFREY DO Ot 733.00 05/25/2014 ATUL JEFFREY DO Ot 724.2 07/08/2014 KEIKO JEFFREY Ot 733.00 07/08/2014 KEIKO JEFFREY Ot 733.00 10/19/2014 ATUL JEFFREY DO Ot 733.00 10/19/2014 ATUL JEFFREY DO Ot 724.2 10/19/2014 KEIKO JEFFREY Ot 733.00 11/08/2014 ATUL JEFFREY DO Ot 733.00 05/02/2015 ATUL JEFFREY DO Ot 733.00 05/02/2015 ATUL JEFFREY DO Ot 724.2 05/02/2015 KEIKO JEFFREY Ot 733.00 05/02/2015 ATUL JEFFREY DO Ot 733.00 05/03/2015 KIERA HOLGUIN MD Ot M54.16 05/22/2015 KIERA HOLGUIN MD Ot M54.16 05/30/2015 KIERA HOLGUIN MD Ot M54.16 RADICULOPATHY, LUMBAR REGION 07/11/2015 Ot 719.45 JOINT PAIN- PELVIS 07/11/2015 Ot V43.64 HIP JOINT REPLACEMENT STATUS 08/10/2015 Ot 719.45 JOINT PAIN- PELVIS 08/10/2015 Ot V43.64 HIP JOINT REPLACEMENT STATUS 10/16/2015 ATUL JEFFREY DO Ot 733.00 OSTEOPOROSIS NOS 10/16/2015 ATUL JEFFREY DO Ot 724.2 LUMBAGO 10/16/2015 CINDA JEFFREYIA Joe [employer] NETWORK INSTALLER Ot 733.00 OSTEOPOROSIS NOS 10/16/2015 ATUL JEFFREY DO Ot 733.00 OSTEOPOROSIS NOS 10/16/2015 KIERA HOLGUIN MD Ot M54.16 RADICULOPATHY, LUMBAR REGION 10/16/2015 ATUL JEFFREY DO Ot 733.00 OSTEOPOROSIS NOS 10/16/2015 ATUL JEFFREY DO Ot 724.2 LUMBAGO 10/16/2015 CINDA JEFFREYIA L DISH NETWORK INSTALLER Ot 733.00 OSTEOPOROSIS NOS 10/16/2015 ATUL JEFFREY DO Ot 733.00 OSTEOPOROSIS NOS 10/16/2015 KIERA HOLGUIN MD Ot M54.16 RADICULOPATHY, LUMBAR REGION 10/19/2015 ATUL JEFFREY DO Ot M81.0 AGE-RELATED OSTEOPOROSIS W/O CURRENT PAT 11/12/2015 CINDA JEFFREYIA L [employer] NETWORK INSTALLER Ot M81.0 AGE-RELATED OSTEOPOROSIS W/O CURRENT PAT 11/14/2015 AMBER JEFFREYRICIA L DISH NETWORK INSTALLER Ot M81.0 AGE-RELATED OSTEOPOROSIS W/O CURRENT PAT 03/12/2016 ATUL JEFFREY DO Ot 733.00 OSTEOPOROSIS NOS 03/12/2016 ATUL JEFFREY DO Ot 724.2 LUMBAGO 03/12/2016 CINDA JEFFREYIA L DISH NETWORK INSTALLER Ot 733.00 OSTEOPOROSIS NOS 03/12/2016 ATUL JEFFREY DO Ot 733.00 OSTEOPOROSIS NOS 03/12/2016 KIERA HOLGUIN MD Ot M54.16 RADICULOPATHY, LUMBAR REGION 03/12/2016 ATUL JEFFREY DO Ot M81.0 AGE-RELATED OSTEOPOROSIS W/O CURRENT PAT 03/12/2016 KEIKO JEFFREY Ot M81.0 AGE-RELATED OSTEOPOROSIS W/O CURRENT PAT 03/13/2016 JEFFREY DO, ATUL Ortiz Ot M19.032 PRIMARY OSTEOARTHRITIS, LEFT WRIST 03/17/2016 JEFFREY DO, ATUL Ortiz Ot M19.032 PRIMARY OSTEOARTHRITIS, LEFT WRIST 04/01/2016 JEFFREY DO, ATUL Ortiz Ot M19.032 PRIMARY OSTEOARTHRITIS, LEFT WRIST 04/03/2016 JEFFREY DO, ATUL Ortiz Ot M19.032 PRIMARY OSTEOARTHRITIS, LEFT WRIST 07/07/2016 ATUL JEFFREY DO Ot K43.2 INCISIONAL HERNIA WITHOUT OBSTRUCTION OR 07/07/2016 ATUL JEFFREY DO Ot Q63.1 LOBULATED, FUSED AND HORSESHOE KIDNEY 07/08/2016 ATUL JEFFREY DO Ot K43.2 INCISIONAL HERNIA WITHOUT OBSTRUCTION OR 07/08/2016 ATUL JEFFREY DO Ot Q63.1 LOBULATED, FUSED AND HORSESHOE KIDNEY 07/08/2016 JEFFREYATUL MOLINA DO Ot K43.2 INCISIONAL HERNIA WITHOUT OBSTRUCTION OR 07/08/2016 ATUL JEFFREY DO Ot Q63.1 LOBULATED, FUSED AND HORSESHOE KIDNEY 07/11/2016 TAUL JEFFREY DO Ot K43.2 INCISIONAL HERNIA WITHOUT OBSTRUCTION OR 07/11/2016 ATUL JEFFREY DO Ot Q63.1 LOBULATED, FUSED AND HORSESHOE KIDNEY 07/11/2016 JEFFREYATUL IZAGUIRRE DO Ot K43.2 INCISIONAL HERNIA WITHOUT OBSTRUCTION OR 07/11/2016 JEFFREYATUL IZAGUIRRE DO Ot Q63.1 LOBULATED, FUSED AND HORSESHOE KIDNEY 07/11/2016 JEFFREYATUL IZAGUIRRE DO Ot K43.2 INCISIONAL HERNIA WITHOUT OBSTRUCTION OR 07/11/2016 ATUL JEFFREY DO Ot Q63.1 LOBULATED, FUSED AND HORSESHOE KIDNEY 07/24/2016 JEFFREYATUL IZAGUIRRE DO Ot K43.2 INCISIONAL HERNIA WITHOUT OBSTRUCTION OR 07/24/2016 JEFFREYATUL IZAGUIRRE DO Ot Q63.1 LOBULATED, FUSED AND HORSESHOE KIDNEY 07/25/2016 JANIS DUVALL MD Ot K43.9 VENTRAL HERNIA WITHOUT OBSTRUCTION OR GA 07/25/2016 JANIS DUVALL MD Ot Z01.812 ENCOUNTER FOR PREPROCEDURAL LABORATORY E 07/25/2016 JANIS DUVALL MD Ot Z01.818 ENCOUNTER FOR OTHER PREPROCEDURAL EXAMIN 07/25/2016 JANIS DUVALL MD Ot Z11.2 ENCOUNTER FOR SCREENING FOR OTHER BACTER 07/30/2016 JANIS DUVALL MD Ot K43.9 VENTRAL HERNIA WITHOUT OBSTRUCTION OR GA 07/30/2016 JANIS DUVALL MD Ot Z01.812 ENCOUNTER FOR PREPROCEDURAL LABORATORY E 07/30/2016 JANIS DUVALL MD Ot Z01.818 ENCOUNTER FOR OTHER PREPROCEDURAL EXAMIN 07/30/2016 JANIS DUVALL MD Ot Z11.2 ENCOUNTER FOR SCREENING FOR OTHER BACTER 07/31/2016 ATUL JEFFREY DO Ot K43.2 INCISIONAL HERNIA WITHOUT OBSTRUCTION OR 07/31/2016 ATUL JEFFREY DO Ot Q63.1 LOBULATED, FUSED AND HORSESHOE KIDNEY 07/31/2016 JANIS DUVALL MD Ot E78.5 HYPERLIPIDEMIA, UNSPECIFIED 07/31/2016 JANIS DUVALL MD Ot I10 ESSENTIAL (PRIMARY) HYPERTENSION 07/31/2016 JANIS DUVALL MD Ot 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 07/31/2016 JANIS DUVALL MD Ot K21.9 GASTRO-ESOPHAGEAL REFLUX DISEASE WITHOUT 07/31/2016 JANIS DUVALL MD Ot K40.90 UNIL INGUINAL HERNIA, W/O OBST OR GANGR, 07/31/2016 JANIS DUVALL MD Ot M06.9 RHEUMATOID ARTHRITIS, UNSPECIFIED 07/31/2016 JANIS DUVALL MD Ot 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 07/31/2016 JANIS DUVALL MD Ot Z79.899 OTHER BLEACH BOILER PACKER (CURRENT) DRUG THERAPY 07/31/2016 JANIS DUVALL MD Ot Z85.46 PERSONAL HISTORY OF MALIGNANT NEOPLASM O 07/31/2016 JANIS DUVALL MD Ot Z95.1 PRESENCE OF AORTOCORONARY BYPASS GRAFT 07/31/2016 JANIS DUVALL MD Ot Z95.5 PRESENCE OF CORONARY ANGIOPLASTY IMPLANT 07/31/2016 JADIEL CERVANTES, JANIS Avery Ot Z96.642 PRESENCE OF LEFT ARTIFICIAL HIP JOINT 07/31/2016 JANIS DUVALL MD Ot Z96.651 PRESENCE OF RIGHT ARTIFICIAL KNEE JOINT 08/03/2016 MOISES FERNANDEZ MD Ot G89.18 OTHER ACUTE POSTPROCEDURAL PAIN 08/03/2016 MOISES FERNANDEZ MD Ot I10 ESSENTIAL (PRIMARY) HYPERTENSION 08/03/2016 MOISES FERNANDEZ MD Ot 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 08/03/2016 MOISES FERNANDEZ MD Ot I25.2 OLD MYOCARDIAL INFARCTION 08/03/2016 MOISES FERNANDEZ MD Ot M06.9 RHEUMATOID ARTHRITIS, UNSPECIFIED 08/03/2016 MOISES FERNANDEZ MD Ot R10.9 UNSPECIFIED ABDOMINAL PAIN 08/03/2016 MOISES FERNANDEZ MD Ot Z79.82 SENIOR CARE (CURRENT) USE OF ASPIRIN 08/03/2016 MOISES FERNANDEZ MD Ot Z85.46 PERSONAL HISTORY OF MALIGNANT NEOPLASM O 08/03/2016 MOISES FERNANDEZ MD Ot Z85.828 PERSONAL HISTORY OF OTHER MALIGNANT NEOP 08/03/2016 MOISES FERNANDEZ MD Ot Z87.19 PERSONAL HISTORY OF OTHER DISEASES OF TH 08/03/2016 MOISES FERNANDEZ MD Ot 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( 08/03/2016 MOISES FERNANDEZ MD Ot Z95.5 PRESENCE OF CORONARY ANGIOPLASTY IMPLANT 08/03/2016 MOISES FERNANDEZ MD Ot Z98.890 OTHER SPECIFIED POSTPROCEDURAL STATES 08/04/2016 JANIS DUVALL MD Ot E78.5 HYPERLIPIDEMIA, UNSPECIFIED 08/04/2016 JANIS DUVALL MD Ot I10 ESSENTIAL (PRIMARY) HYPERTENSION 08/04/2016 JANIS DUVALL MD Ot 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 08/04/2016 JANIS DUVALL MD Ot K21.9 GASTRO-ESOPHAGEAL REFLUX DISEASE WITHOUT 08/04/2016 JANIS DUVALL MD Ot K40.90 UNIL INGUINAL HERNIA, W/O OBST OR GANGR, 08/04/2016 JANIS DUVALL MD, Ot M06.9 RHEUMATOID ARTHRITIS, UNSPECIFIED 08/04/2016 JANIS DUVALL MD, Ot 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 08/04/2016 JANIS DUVALL MD, Ot Z79.899 OTHER BLEACH BOILER PACKER (CURRENT) DRUG THERAPY 08/04/2016 JANIS DUVALL MD, Ot Z85.46 PERSONAL HISTORY OF MALIGNANT NEOPLASM O 08/04/2016 JANIS DUVALL MD Ot Z95.1 PRESENCE OF AORTOCORONARY BYPASS GRAFT 08/04/2016 JANIS DUVALL MD Ot Z95.5 PRESENCE OF CORONARY ANGIOPLASTY IMPLANT 08/04/2016 JANIS DUVALL MD Ot Z96.642 PRESENCE OF LEFT ARTIFICIAL HIP JOINT 08/04/2016 JANIS DUVALL MD, Ot Z96.651 PRESENCE OF RIGHT ARTIFICIAL KNEE JOINT 08/05/2016 MOISES FERNANDEZ MD Ot G89.18 OTHER ACUTE POSTPROCEDURAL PAIN 08/05/2016 MOISES FERNANDEZ MD Ot I10 ESSENTIAL (PRIMARY) HYPERTENSION 08/05/2016 MOISES FERNANDEZ MD Ot 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 08/05/2016 MOISES FERNANDEZ MD Ot I25.2 OLD MYOCARDIAL INFARCTION 08/05/2016 MOISES FERNANDEZ MD, Ot M06.9 RHEUMATOID ARTHRITIS, UNSPECIFIED 08/05/2016 MOISES FERNANDEZ MD Ot R10.9 UNSPECIFIED ABDOMINAL PAIN 08/05/2016 MOISES FERNANDEZ MD Ot Z79.82 SENIOR CARE (CURRENT) USE OF ASPIRIN 08/05/2016 MOISES FERNANDEZ MD Ot Z85.46 PERSONAL HISTORY OF MALIGNANT NEOPLASM O 08/05/2016 MOISES FERNANDEZ MD Ot Z85.828 PERSONAL HISTORY OF OTHER MALIGNANT NEOP 08/05/2016 MOISES FERNANDEZ MD Ot Z87.19 PERSONAL HISTORY OF OTHER DISEASES OF TH 08/05/2016 MOISES FERNANDEZ MD Ot 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( 08/05/2016 MOISES FERNANDEZ MD Ot Z95.5 PRESENCE OF CORONARY ANGIOPLASTY IMPLANT 08/05/2016 REBECCA CERVANTES, MOISES [place] Ot Z98.890 OTHER SPECIFIED POSTPROCEDURAL STATES Procedures There is no data. Results Test Result Range Complete blood count (CBC) with automated white blood cell (WBC) differential - 07/25/16 08:50 Blood leukocytes automated count (number/volume) 4.6 10*3/uL 4.3-11.0 Blood erythrocytes automated count (number/volume) 4.18 10*6/uL 4.35-5.85 Venous blood hemoglobin measurement (mass/volume) 12.7 g/dL 13.3-17.7 Blood hematocrit (volume fraction) 38 % 40-54 Automated erythrocyte mean corpuscular volume 90 [foz_us] 80-99 Automated erythrocyte mean corpuscular hemoglobin (mass per erythrocyte) 30 pg 25-34 Automated erythrocyte mean corpuscular hemoglobin concentration measurement ( mass/volume) 34 g/dL 32-36 Automated erythrocyte distribution width ratio 13.3 % 10.0-14.5 Automated blood platelet count (count/volume) 155 10*3/uL 130-400 Automated blood platelet mean volume measurement 11.2 [foz_us] 7.4-10.4 Automated blood neutrophils/100 leukocytes 65 % 42-75 Automated blood lymphocytes/100 leukocytes 22 % 12-44 Blood monocytes/100 leukocytes 13 % 0-12 Automated blood eosinophils/100 leukocytes 0 % 0-10 Automated blood basophils/100 leukocytes 0 % 0-10 Blood neutrophils automated count (number/volume) 3.0 10*3 1.8-7.8 Blood lymphocytes automated count (number/volume) 1.0 10*3 1.0-4.0 Blood monocytes automated count (number/volume) 0.6 10*3 0.0-1.0 Automated eosinophil count 0.0 10*3/uL 0.0-0.3 Automated blood basophil count (count/volume) 0.0 10*3/uL 0.0-0.1 Methicillin resistant Staphylococcus aureus (MRSA) screening culture - 08:50 Methicillin resistant Staphylococcus aureus (MRSA) screening culture NEG NRG Complete blood count (CBC) with automated white blood cell (WBC) differential - 08/03/16 08:50 Blood leukocytes automated count (number/volume) 4.2 10*3/uL 4.3-11.0 Blood erythrocytes automated count (number/volume) 4.16 10*6/uL 4.35-5.85 Venous blood hemoglobin measurement (mass/volume) 12.7 g/dL 13.3-17.7 Blood hematocrit (volume fraction) 38 % 40-54 Automated erythrocyte mean corpuscular volume 91 [foz_us] 80-99 Automated erythrocyte mean corpuscular hemoglobin (mass per erythrocyte) 31 pg 25-34 Automated erythrocyte mean corpuscular hemoglobin concentration measurement ( mass/volume) 34 g/dL 32-36 Automated erythrocyte distribution width ratio 13.0 % 10.0-14.5 Automated blood platelet count (count/volume) 170 10*3/uL 130-400 Automated blood platelet mean volume measurement 11.4 [foz_us] 7.4-10.4 Automated blood neutrophils/100 leukocytes 68 % 42-75 Automated blood lymphocytes/100 leukocytes 18 % 12-44 Blood monocytes/100 leukocytes 12 % 0-12 Automated blood eosinophils/100 leukocytes 1 % 0-10 Automated blood basophils/100 leukocytes 0 % 0-10 Blood neutrophils automated count (number/volume) 2.9 10*3 1.8-7.8 Blood lymphocytes automated count (number/volume) 0.8 10*3 1.0-4.0 Blood monocytes automated count (number/volume) 0.5 10*3 0.0-1.0 Automated eosinophil count 0.1 10*3/uL 0.0-0.3 Automated blood basophil count (count/volume) 0.0 10*3/uL 0.0-0.1 Comprehensive metabolic panel - 08/03/16 08:50 Serum or plasma sodium measurement (moles/volume) 140 mmol/L 135-145 Serum or plasma potassium measurement (moles/volume) 4.4 mmol/L 3.6-5.0 Serum or plasma chloride measurement (moles/volume) 107 mmol/L 98-107 Carbon dioxide 25 mmol/L 21-32 Serum or plasma anion gap determination (moles/volume) 8 mmol/L 5-14 Serum or plasma urea nitrogen measurement (mass/volume) 16 mg/dL 7-18 Serum or plasma creatinine measurement (mass/volume) 0.83 mg/dL 0.60-1.30 Serum or plasma urea nitrogen/creatinine mass ratio 19 0 -20 Serum or plasma creatinine measurement with calculation of estimated glomerular filtration rate > NRG Serum or plasma glucose measurement (mass/volume) 117 mg/dL 70-105 Serum or plasma calcium measurement (mass/volume) 11.5 mg/dL 8.5-10.1 Serum or plasma total bilirubin measurement (mass/volume) 0.6 mg/dL 0.1-1.0 Serum or plasma alkaline phosphatase measurement (enzymatic activity/volume) 73 U/L 40-136 Serum or plasma aspartate aminotransferase measurement (enzymatic activity/ volume) 28 U/L 5-34 Serum or plasma alanine aminotransferase measurement (enzymatic activity/volume ) 19 U/L 0-55 Serum or plasma protein measurement (mass/volume) 6.8 g/dL 6.4-8.2 Serum or plasma albumin measurement (mass/volume) 3.6 g/dL 3.2-4.5 Complete urinalysis with reflex to culture - 08/03/16 10:05 Urine color determination YELLOW NRG Urine clarity determination SLIGHTLY CLOUDY NRG Urine pH measurement by test strip 7 5-9 Specific gravity of urine by test strip 1.015 1.016- 1.022 Urine protein assay by test strip, semi-quantitative NEGATIVE NEGATIVE Urine glucose detection by automated test strip NEGATIVE NEGATIVE Erythrocytes detection in urine sediment by light microscopy NEGATIVE NEGATIVE Urine ketones detection by automated test strip NEGATIVE NEGATIVE Urine nitrite detection by test strip NEGATIVE NEGATIVE Urine total bilirubin detection by test strip NEGATIVE NEGATIVE Urine urobilinogen measurement by automated test strip (mass/volume) NORMAL NORMAL Urine leukocyte esterase detection by dipstick NEGATIVE NEGATIVE Automated urine sediment erythrocyte count by microscopy (number/high power field) NONE NRG Automated urine sediment leukocyte count by microscopy (number/high power field ) NONE NRG Bacteria detection in urine sediment by light microscopy NEGATIVE NRG Crystals detection in urine sediment by light microscopy PRESENT NRG Casts detection in urine sediment by light microscopy NONE NRG Mucus detection in urine sediment by light microscopy NEGATIVE NRG Complete urinalysis with reflex to culture NO NRG Amorphous sediment detection in urine sediment by light microscopy LARGE PAZ PHOSPHATE NRG Glucose - 12/18/17 07:36 Glucose 100 mg/dL 70-110 Hemoglobin A1C - 12/18/17 07:36 % A1C 5.50 % 5.40-6.60 AvGlu 117 mg/dL 70-110 Encounters ACCT No. Visit Date/Time Discharge Status Pt. Type Provider Facility Loc./Unit Complaint [id number] 07/13/2013 05:47:09 07/13/2013 23:59:59 CLS Outpatient Ayaz Wang [id number] 10/06/2017 13:11:05 Document Registration [id number] 08/18/2017 10:33:47 Document Registration [id number] 08/18/2017 06:43:48 Document Registration [id number] 02/12/2017 13:09:56 Document Registration [id number] 01/07/2017 08:55:34 Document Registration [id number] 08/03/2016 07:09:00 08/03/2016 11:27:00 DIS Emergency REBECCA CERVANTES, MOISES [place] [facility] ER PAIN FROM HERNIA SURG [id number] 07/30/2016 08:06:00 07/31/2016 19:23:00 DIS Outpatient JANIS DUVALL MD [facility] VENTRAL HERNIA [id number] 07/25/2016 08:09:00 07/25/2016 08:50:00 DIS Outpatient JANIS DUVALL MD [facility] PREOP VENTRAL HERNIA [id number] 07/03/2016 13:37:00 07/03/2016 23:59:59 CLS Outpatient ATUL JEFFREY DO [facility] RAD INCISIONAL HERNIA [id number] 03/12/2016 11:04:00 03/12/2016 23:59:59 CLS Outpatient ATUL JEFFREY DO [facility] RAD ARTHRALGIA [id number] 10/19/2015 11:17:00 10/19/2015 23:59:59 CLS Outpatient KEIKO JEFFREY [facility] M81.0 [id number] 10/16/2015 11:18:00 10/16/2015 23:59:59 CLS Outpatient ATUL JEFFREY DO [facility] M81.0 [id number] 06/09/2015 10:20:00 06/09/2015 23:59:59 CLS Outpatient MAICOL PORTER [facility] QUICK [id number] 05/02/2015 10:01:00 05/02/2015 23:59:59 CLS Outpatient KIERA HOLGUIN MD [facility] RAD RADICULOPATHY [id number] 10/19/2014 11:51:00 10/19/2014 23:59:59 CLS Outpatient ATUL JEFFREY DO [facility] RAD 733.00-OSTEOPOROSIS [id number] 05/25/2014 13:33:00 05/25/2014 23:59:59 CLS Outpatient KEIKO JEFFREY [facility] OSTEOPOROSIS [id number] 02/07/2014 07:05:00 02/07/2014 23:59:59 CLS Outpatient ATUL JEFFREY DO [facility] RAD CHRONIC LUMBAGO [id number] 10/22/2012 15:05:00 10/22/2012 23:59:59 CLS Outpatient ATUL JEFFREY DO [facility] OSTEOPOROSIS [id number] 06/21/2012 07:50:00 06/21/2012 23:59:59 CLS Outpatient [id number] 06/15/2012 12:27:00 06/15/2012 23:59:59 CLS Outpatient [id number] 01/11/2018 13:00:00 PEN Preadmit KIERA HOLGUIN MD STENOSIS [id number] 01/16/2014 08:23:00 Document Registration [id number] 07/09/2011 14:44:00 Document Registration [id number] 11/17/2008 07:16:00 Document Registration [id number] 11/17/2008 07:10:00 Document Registration [id number] 12/18/2017 07:12:00 12/18/2017 23:59:00 DIS Outpatient Vernon Patino
[2018-01-11] MEDS ORDERED: GENTAMICIN 40 MG/ML 2 ML INJ SDV ONE (11:27)
--- NOTE | 2018-01-11 12:39 | Progress Note-Post Operative ---
Post-Operative Progess Note Surgeon (s)/Dosimetrist (s) Surgeon KIERA HOLGUIN MD Dosimetrist: JORGITO Brandt Pre-Operative Diagnosis Cervical Stenosis Post-Operative Diagnosis Same Procedure & Operative Findings Date of Procedure 01/11/18 Procedure Performed/Findings C4-5 Acdf Anesthesia Type geta Estimated Blood Loss Estimated blood loss (mL): min Specimens/Packing Specimens Removed none KIERA HOLGUIN MD Jan 11, 2018 12:39
[2018-01-11] MEDS ORDERED: ONDANSETRON 4 MG/2 ML (SDV) Z0FRAN IV PRN (13:00)
[2018-01-11] MEDS ORDERED: ACETAMINOPHEN 325 MG TABLET PO PRN (13:00)
[2018-01-11] MEDS ORDERED: MILK OF MAGNESIA 400 MG/5 ML 30 ML UDC PO PRN (13:00)
[2018-01-11] MEDS ORDERED: DOCUSATE SODIUM 100 MG (COLACE) CAP PO PRN (13:00)
[2018-01-11] MEDS ORDERED: HYDROmorphone 2 MG/ML VIAL (DILAUDID) ONE (13:13)
[2018-01-11] MEDS ORDERED: HYDROmorphone 2 MG/ML VIAL (DILAUDID) IV ONE (13:15)
[2018-01-11] MEDS ORDERED: ONDANSETRON 4 MG/2 ML (SDV) Z0FRAN IVP PRN (13:15)
[2018-01-11 14:10] VITALS: BP 166/78
[2018-01-11] MEDS ORDERED: morphine INJ 10 MG/ML 1ML (SYR OR VIAL) ONE (15:12)
[2018-01-11] MEDS: morphine INJ 10 MG/ML 1ML (SYR OR VIAL) IVP PRN ×2 (15:17→18:40)
[2018-01-11] MEDS ORDERED: NS IV 1000 ML 1,000 ML ONE (15:19)
[2018-01-11] MEDS: NS IV 1000 ML 1,000 ML IV SCH (15:21)
[2018-01-11 16:00] VITALS: BP 168/80
--- NOTE | 2018-01-11 16:11 | Diagnostic Imaging Report ---
INDICATION: Fluoroscopy during ACDF. FINDINGS: Fluoroscopy was provided in the OR during ACDF. Six seconds of fluoroscopy was utilized. Images demonstrate postoperative changes of ACDF with anterior plate and screws transfixing the C4-5 level. IMPRESSION: Fluoroscopy during cervical spine surgery. Dictated by: Dictated on workstation # [id number]
[2018-01-11] MEDS: ceFAZolin 2 GM IV Premixed 50 ML IV SCH (16:44)
[2018-01-11] MEDS ORDERED: ceFAZolin INJECTION 2,000 MG in NS (IVPB) 50 ML IV SCH (17:00)
[2018-01-11 20:00] VITALS: BP 156/85
[2018-01-11] MEDS: SIMvastatin 20 MG (ZOCOR) TAB PO SCH (20:57)
[2018-01-11] MEDS: doxAzosin 4 MG (CARDURA) TAB PO SCH (20:57)
[2018-01-11] MEDS: lisINopril 20 MG (PRINIVIL) TABLET PO SCH (20:57)
[2018-01-11] MEDS ORDERED: NON-FORMULARY MEDICATION 1 EA EA (Pravastatin Sodium 40 MG) PO SCH (21:00)
[2018-01-11] MEDS: HYDROcodone/APAP 10 MG/325 MG (LORTAB) TAB PO PRN (21:49)
[2018-01-12] VITALS (7 sets, daily range): BP systolic 116–154; BP diastolic 61–85
--- NOTE | 2018-01-12 00:34 | OPERATIVE REPORT ---
DATE OF SERVICE: 01/11/2018 PREOPERATIVE DIAGNOSES: 1. Cervical spondylosis with myelopathy, cervical stenosis, neural canal due to osseous and disk structures. 2. Cervical radiculopathy. POSTOPERATIVE DIAGNOSES: 1. Cervical spondylosis with myelopathy, cervical stenosis, neural canal due to osseous and disk structures. 2. Cervical radiculopathy. PROCEDURES PERFORMED: 1. C4-5 anterior cervical discectomy and fusion. 2. C4-5 interbody cage instrumentation. 3. C4-5 anterior cervical instrumentation. 4. Allograft for spine surgery, morselized. DATE AND TIME OF SURGERY: Please see anesthesia record. IMPLANTS USED: K2M Ogden titanium cervical cage, K2M [place] plate, K2M Vesuvius bone graft. SURGEON: Kiera Espinoza MD RUBBER OFF: CRISTIANA Brandt. ROLE OF DENTAL OFFICER: Aid in retraction of procedure, aid in implantation and tissue and closure. ANESTHESIA: General endotracheal. ESTIMATED BLOOD LOSS: Minimal. IV FLUIDS: Please see anesthesia record. ANTIBIOTICS: Ancef. COMPLICATIONS: None. SPECIMENS: None. INDICATIONS FOR PROCEDURE: The patient is a 77-year-old male with progression to over neck and arm pain, myelopathy features, failed conservative therapy, desires operative treatment. DESCRIPTION OF PROCEDURE: The patient was taken to the preoperative holding area and brought back to the operative suite. After adequate induction of general anesthesia, preoperative antibiotics, placed supine neuromonitoring. Standard intraoperative neurophysiologic monitoring carried out by means of real time continuous high quality bidirectional mode, audio and visual communication both the bindery technician and surgeon by Dr. Perez was performed. SSEPS, EMGs, TcMEPs, TOFs were carried out continuously throughout the procedure stable. DESCRIPTION OF PROCEDURE: The patient was taken from preoperative holding area and brought back to the operative suite. After adequate induction of general anesthetic, placed supine on the OR table. Shoulder roll was placed, head extended sterile prep and drape, the anterior cervical spine. A standard right-sided Marshall-Dacosta approach, neck was carried out without difficulty. Once appropriate level was confirmed, Shadow-Line retractor was placed deep to the longus colli for remainder of the case. [place] pins placed. Anterior diskectomy was carried out. This decompression all the way down to the posterior longitudinal ligament including bilateral foraminotomies performed in place. Trial spacer was utilized and a 7 mm tall Ogden cage filled with Allograft bone was impacted into position with great fit achieved. [place] plate was then affixed to the spine with 14 mm variable angle screws. Locking mechanism was deployed. Wound copiously irrigated. Good hemostasis assured with bipolar cautery and bone wax and FloSeal were used to aid hemostasis. Wound was closed in layers. The patient transferred to recovery room in stable condition having tolerated the procedure well with stable spinal monitoring. Job ID: [id number] DocumentID: [id number] Dictated Date: 01/11/2018 12:42:13 Hair Blender Date: 01/11/2018 21:26:50 Dictated By: KIERA ESPINOZA MD
[2018-01-12] MEDS: ceFAZolin 2 GM IV Premixed 50 ML IV SCH ×2 (01:21→08:46)
[2018-01-12] MEDS: NS IV 1000 ML 1,000 ML IV SCH ×4 (03:07→23:55)
[2018-01-12] MEDS: HYDROcodone/APAP 10 MG/325 MG (LORTAB) TAB PO PRN ×3 (03:49→21:16)
[2018-01-12] MEDS: MULTIVIT W/MINERALS TAB (THERAGRAN M) PO SCH (06:09)
--- NOTE | 2018-01-12 06:51 | Progress Note (SOAP) ---
Subjective Date Seen by a Provider: Jan 12, 2018 Time Seen by a Provider: 06:49 Subjective/Events-last exam Pain ok, left arm working better Objective Exam Vital Signs Date Time Temp Pulse Resp B/P (MAP) Pulse Ox O2 Delivery O2 Flow Rate FiO2 01/12/18 04:00 98.0 88 16 150/80 (103) 96 Room Air 01/12/18 00:00 97.8 87 20 123/64 (83) 94 Room Air 01/11/18 21:00 Room Air 01/11/18 20:00 97.4 94 18 156/85 (108) 94 Room Air 01/11/18 16:00 97.8 72 18 168/80 (109) 93 Room Air 01/11/18 14:10 97.0 75 20 166/78 (107) 92 Room Air 01/11/18 08:35 97.5 73 20 142/90 (107) 98 Room Air I & O 01/12/18 07:00 Intake Total 1800 ml Balance 1800 ml Capillary Refill : Less Than 3 Seconds General Appearance: No Apparent Distress Neck: Supple, Other (incision ok, phonation good, no stridor) Respiratory: No Accessory Muscle Use, No Respiratory Distress Cardiovascular: Regular Rate, Rhythm, Normal Peripheral Pulses Gastrointestinal: soft Neurologic/Psychiatric: Alert, Oriented x3, No Motor/Sensory Deficits Assessment/Plan Assessment/Plan Assess & Plan/Chief Complaint C4-5 ACDF Doing well Continue to mobilize Pain control Clinical Quality Measures DVT/VTE Risk/Contraindication: Risk Factor Score Per Nursin RFS Level Per Nursing on Admit: 4+=Very High KIERA HOLGUIN MD Jan 12, 2018 06:51
--- NOTE | 2018-01-12 09:36 | Physical Therapy Evaluation ---
PT Evaluation-General Medical Diagnosis Admission Date Jan 11, 2018 at 08:30 Medical Diagnosis: Stenosis Onset Date: Jan 11, 2018 Therapy Diagnosis Therapy Diagnosis: General weakness Height/Weight Height (Feet): 5 Height (Inches): 6.00 Weight (Pounds): 164 Weight (Ounces): 7.0 Precautions Precautions/Isolations: Standard Precautions Weight Bear Status Right Lower Extremity: Right Full Weight Bearing Left Lower Extremity: Left Full Weight Bearing Referral Physician: Olga Reason for Referral: Evaluation/Treatment Medical History Pertinent Medical History: CABG, CAD, HTN, Rheumatoid Arthritis Current History surgical procedure on C4-C5 Reviewed History: Yes Social History Home: [facility] Current Living Status: Spouse Entry Into Home: Stairs With Railing PT Steps Into Home: 5 PT Steps Inside Home: 2 Prior/Core FIM Prior Level of Function Therapy Code Descriptions/Definitions Functional [place] Measure: 0=Not Assessed/NA 4=Minimal Assistance 1=Total Assistance 5=Supervision or Setup 2=Maximal Assistance 6=Modified [place] 3=Moderate Assistance 7=Complete [place] Therapy Quality Codes: 6 Independent with activity with or without an assistive device 5 Patient requires set up or clean up by helper. Patient completes activity by themselves 4 Supervision or touching assist (CGA). [place] provide cues , steadying assist 3 The helper provides less than half the effort to complete the activity 2 The helper provides more than half the effort to complete the activity 1 Dependent. The helper does all the effort to complete an activity 7 Patient refused to complete or attempt activity 9 The patient did not perform the activity before the current illness or injury 88 Not attempted due to Medical conditions or safety concerns Functional Abilities and Goals: Independent: Patient completed the activities by him/herself, with or without an assistive device, with no assistance from a helper. Needed Some Help: Patient needed partial assistance from another person to complete activities. Dependent: A helper completed the activities for the patient. Unknown: Not Applicable: Bed Mobility: 7 Transfers (B,C,W/C) (FIM): 7 Gait: 6 Stairs: 6 Indoor Mobility (Ambulation): Independent Stairs: Independent Prior Devices Use: Other-see list below Prior Device Use: Single point cane PT Evaluation-Current Subjective Patient up in chair visiting with when PT arrived. Pt agreed to evaluation by PT. Pain Numeric Pain Scale: 7 Location: Posterior, Anterior Location Body Site: Neck Pain Description: Acute Objective Patient Orientation: Normal For Age Problem Solving: Fair Attachments: IV ROM/Strength ROM Upper Extremities WNL ROM Lower Extremities WNL Strength Upper Extremities 2/5 gross motor strength of L UE R WNL Strength Lower Extremities WNL Integumentary/Posture Bowel Incontinence: No Bladder Incontinence: No Posture WFL Neuromuscular (Tone, Coordination, Reflexes) Gross motor coordination intact Sensory Vision: Functional Hearing: Hearing Aid/Aides Hand Dominance: Right Sensation Right Upper Extremit: Intact Sensation Left Upper Extremity: Intact Sensation Right Lower Extremit: Intact Sensation Left Lower Extremity: Intact Transfers Therapy Code Descriptions/Definitions Functional [place] Measure: 0=Not Assessed/NA 4=Minimal Assistance 1=Total Assistance 5=Supervision or Setup 2=Maximal Assistance 6=Modified [place] 3=Moderate Assistance 7=Complete [place] Transfers (B, C, W/C) (FIM): 6 Scootin Rollin Supine to/from Sit: 6 Sit to/from Stand: 6 Gait Mode of Locomotion: Walk Anticipated Mode of Locomotion: Walk Gait (FIM): 6 Distance: 150' Gait Level of Assist: 6 Gait Persons Needed: 6 Gait Assistive Device: None Balance Sitting Static: Normal Sitting Dynamic: Normal Standing Static: Normal Standing Dynamic: Normal Assessment/Needs Pt is able to ambulate without an AD for 150' with Independently. Pt currently only needs an assistant media planner to manage IV pole. Patient overall strength WNL besides L UE. L UE is a 2/5 for gross motor strength and patient has been given ROM and strengthening exercises. Patient is currently at [facility] with all gross motor skills and does not require PT intervention. Rehab Potential: Good PT Plan Treatment/Plan Treatment Plan: Discontinue PT, goals met, Discontinue PT Treatment Plan: Other Treatment Duration: Jan 12, 2018 Frequency: 1 time per week Estimated Hrs Per Day: .25 hour per day Patient and/or Family Agrees t: Yes Discharge Recommendations Therapy D/C Recommendations: Home w/ Family Support, Physical Therapy Outpatient Time/GCodes Time In: 842 Time Out: 905 Total Billed Treatment Time: 23 Total Billed Treatment 1 Visit EVL - 23' G Codes Necessary: No ZEESHAN GRISSOM PT Jan 12, 2018 09:36
--- NOTE | 2018-01-12 10:03 | Consultation-Hospitalist ---
HPI History of Present Illness: HPI/Chief Complaint CC: Medical management following an uncomplicated cervical spine surgery by Dr Espinoza POD # 1 HPI: This is a 77yoWM clinic patient of Dr Valles who presents to [facility] following an uncomplicated cervical spine surgery. Patient is regaining the use of his left arm and his pain is controlled. Patient's Sharepoint Solutions Developer is Dr Peters and is scheduled to obtain an ECHO and see him in the next few weeks. He is asking for a suppository and a laxative. I reviewed his home meds and he reports no issues with urination. Source: patient, family, RN/MD Exam Limitations: no limitations Date Seen 01/12/18 Attending Physician Jayesh Espinoza MD PCP Cyrus Valles DO Referring Physician Date of Admission Jan 11, 2018 at 08:30 Home Medications & Allergies Home Medications Reviewed patient Home Medication Reconciliation performed by pharmacy medication reconciliations surface lay out technician and/or nursing. Patients Allergies have been reviewed. Allergies Allergies Coded Allergies meperidine (Unverified Allergy, Severe, POSSIBLE RESP ISSUES, 01/07/18) metoclopramide (Unverified Allergy, Mild, SEVERE N/V, 01/07/18) Past Tepjtpz-Tsmjts-Rkpyuw Hx Past Med/Social Hx: Reviewed Nursing Past Med/Soc Hx, Reviewed and Corrections made Patient Social History Marrital Status: Employed/Student: employed ([employer], [employer]) Alcohol Use: Denies Use Recreational Drug Use: No Smoking Status: Former Smoker Type Used: Cigars Physical Abuse Screen: No Sexual Abuse: No Recent Foreign Travel: No Contact w/other who traveled: No Recent Hopitalizations: No Recent Infectious Disease Expo: No Immunizations Up To Date Date of Pneumonia Vaccine: Nov 19, 2015 Date of Influenza Vaccine: Nov 16, 2017 Seasonal Allergies Seasonal Allergies: No Past Medical History Surgeries: CABG, Coronary Stent, Joint Replacement, Orthopedic, Prostatectomy Cardiac: Coronary Artery Disease, Heart Attack, Hypertension Reproductive: No Sexually Transmitted Disease: No HIV/AIDS: No Gastrointestinal: Abdominal Hernia, Chronic Constipation, Diverticulosis Musculoskeletal: Arthritis, Rheumatoid Arthritis, Chronic Back Pain HEENT: Cataract Loss of Vision: Bilateral Hearing Impairment: Denies Cancer: Skin What Type of Treatment Did You: Surgical Intervention History of Blood Disorders: No Adverse Reaction to Blood George: No (HAS HAD BLOOD WITH NO REACTION) Family History Hypertension Review of Systems Constitutional: see HPI, weakness EENTM: hearing loss Respiratory: no symptoms reported Cardiovascular: no symptoms reported Gastrointestinal: no symptoms reported Genitourinary: no symptoms reported Musculoskeletal: back pain, joint pain, neck pain Skin: no symptoms reported Psychiatric/Neurological: No Symptoms Reported All Other Systems Reviewed Negative Unless Noted: Yes Physical Exam Physical Exam Vital Signs Vital Signs - First Documented 01/11/18 08:35 Temp 97.5 Pulse 73 Resp 20 B/P (MAP) 142/90 (107) Pulse Ox 98 O2 Delivery Room Air Capillary Refill : Less Than 3 Seconds Height, Weight, BMI Height: 5'6.00" Weight: 164lbs. 7.0oz. [id number]; 26.5 BMI Method:Stated General Appearance: No Apparent Distress, WD/WN, Chronically ill Eyes: Bilateral Eye Normal Inspection, Bilateral Eye PERRL HEENT: PERRL/EOMI, Normal ENT Inspection, Pharynx Normal Neck: Full Range of Motion, Normal Inspection, Non Tender, Supple, Carotid Bruit Respiratory: Chest Non Tender, Lungs Clear, Normal Breath Sounds, No Accessory Muscle Use, No Respiratory Distress Cardiovascular: Regular Rate, Rhythm, No Edema, No Gallop, No JVD, Normal Peripheral Pulses, Systolic Murmur Gastrointestinal: Normal Bowel Sounds, No Organomegaly, No Pulsatile Mass, Non Tender, Soft Back: Normal Inspection, No CVA Tenderness, No Vertebral Tenderness Extremity: Normal Capillary Refill, Normal Inspection, Normal Range of Motion ( except left arm weakness), Non Tender, No Calf Tenderness, No Pedal Edema Neurologic/Psychiatric: Alert, Oriented x3, No Motor/Sensory Deficits, Normal Mood/Affect, Motor Weakness (left arm strength) Skin: Normal Color, Warm/Dry Lymphatic: No Adenopathy Results Results/Procedures Labs Patient resulted labs reviewed. Assessment/Plan Assessment and Plan Assess & Plan/Chief Complaint Assessment: s/p uncomplicated cervical spine surgery by Dr Espinoza POD # 1 CAD CABG Cardiac murmur HTN Presbycusis HLP Plan: Consult Dr Farrell for CAD monitoring Tely Monitor labs Ambulate Pain control Diagnosis/Problems Diagnosis/Problems (1) STENOSIS Status: Chronic (2) Left arm weakness Status: Chronic (3) CAD (coronary artery disease) Status: Chronic Qualifiers: Coronary Disease-Associated Artery/Lesion type: [place]ongo artery [place]ime vs. 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
--- NOTE | 2018-01-12 13:16 | Anesthesia-General Post-Op ---
General Patient Condition Mental Status/LOC: Same as Preop Cardiovascular: Satisfactory Nausea/Vomiting: Absent Respiratory: Satisfactory Pain: Controlled (Pt is having some pain, which is expected) Complications: Absent Post Op Complications Complications None Follow Up Care/Instructions Patient Instructions None needed. Anesthesia/Patient Condition Patient Condition Patient is doing well, no complaints, stable vital signs, no apparent adverse anesthesia problems. NEHEMIAH MUJICA DO Jan 12, 2018 13:16
[2018-01-12] MEDS: ANTACID SUSP 30 ML UDC (MYLANTA) PO PRN (13:52)
--- NOTE | 2018-01-12 13:55 | Occupational Therapy Eval ---
OT Evaluation-General/PLF Medical Diagnosis Admission Date Jan 11, 2018 at 08:30 Medical Diagnosis: Stenosis Onset Date: Jan 11, 2018 Therapy Diagnosis Therapy Diagnosis: decr self care Height/Weight Height (Feet): 5 Height (Inches): 6.00 Weight (Pounds): 164 Weight (Ounces): 7.0 Precautions Precautions/Isolations: Standard Precautions Referral Physician: Olga Referral Reason: Evaluation/Treatment Medical History Pertinent Medical History: CABG, CAD, GERD, HTN, [place], Rheumatoid Arthritis Additional Medical History Hard of hearing. Prostate cancer. R total knee replacement, L total hip replacement. Skin cancer. Chronic back pain (pt reported multiple back surgeries ) Current History C4-5 ACDF. Reported L arm was working better after surgery. Pt reported impingement on spinal cord. Reviewed History: Yes Social History Home: Multilevel Current Living Status: Spouse Entry Into Home: Stairs With Railing Steps Into Home: 5 Steps Inside Home: 2 ADL-Prior Level of Function Therapy Code Descriptions/Definitions Functional [place] Measure: 0=Not Assessed/NA 4=Minimal Assistance 1=Total Assistance 5=Supervision or Setup 2=Maximal Assistance 6=Modified [place] 3=Moderate Assistance 7=Complete [place] Therapy Quality Codes: 6 Independent with activity with or without an assistive device 5 Patient requires set up or clean up by helper. Patient completes activity by themselves 4 Supervision or touching assist (CGA). [place] provide cues , steadying assist 3 The helper provides less than half the effort to complete the activity 2 The helper provides more than half the effort to complete the activity 1 Dependent. The helper does all the effort to complete an activity 7 Patient refused to complete or attempt activity 9 The patient did not perform the activity before the current illness or injury 88 Not attempted due to Medical conditions or safety concerns Functional Abilities and Goals: Independent: Patient completed the activities by him/herself, with or without an assistive device, with no assistance from a helper. Needed Some Help: Patient needed partial assistance from another person to complete activities. Dependent: A helper completed the activities for the patient. Unknown: Not Applicable: ADL PLOF Comments Pt reported that he has been able to manage all of his basic ADLs, although he uses a sock aid. 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 No cognitive concerns noted. He still drives Self Care: Independent Functional Cognition: Independent DME/Equipment: Grab Bars OT Current Status Subjective Pt seen in room, up in bed, agreeable to OT. Pain reported 4-5/10 but he was more concerned about upset stomach from pain meds. Appearance Alert, cooperative Mental Status/Objective Attachments: IV Current Glasses/Contacts: Yes Hearing Aids: Yes Hand Dominance: Right Upper Extremity ROM R UE grossly WFL. L limited especially at shoulder and elbow. pt demonstrated how he lifted up his hand to help wash his hair or close car door. Upper Extremity Strength R UE WFL. L UE 2/5 (on one occasion he was able to maintain UE against gravity briefly) ADL-Treatment ADL-Current Pt got up to take himself to the bathroom, with help from his to disconnect SCDs and unplug the IV pole. He said that he uses a sock aid at home but otherwise doesn't need help with ADLs (he was wearing shorts). No concerns from pt or about ADLs at home. Pt shown 2 additional UE exercises that he can do in bed without cane, with return demo. Pt left up in room, all needs met. DC OT with pt/family agreement. Therapy Code Descriptions/Definitions Functional [place] Measure: 0=Not Assessed/NA 4=Minimal Assistance 1=Total Assistance 5=Supervision or Setup 2=Maximal Assistance 6=Modified [place] 3=Moderate Assistance 7=Complete [place] Therapy Quality Codes: 6 Independent with activity with or without an assistive device 5 Patient requires set up or clean up by helper. Patient completes activity by themselves 4 Supervision or touching assist (CGA). [place] provide cues , steadying assist 3 The helper provides less than half the effort to complete the activity 2 The helper provides more than half the effort to complete the activity 1 Dependent. 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 Goal met. OT Education/Plan Problem List/Assessment Assessment: Decreased UE Strength, Impaired Self-Care Skills Pt would benefit from OT home program for UE exercise, to increase strength for ADLs. Discharge Recommendations Plan/Recommendations: Discharge/Goals Met Treatment Plan/Plan of Care Treatment,Training & Education: Yes Patient would benefit from OT for education, treatment and training to promote independence in ADL's, mobility, safety and/or upper extremity function for ADL' s. Plan of Care: UE Funct Exercise/Act Treatment Duration: Jan 12, 2018 Frequency: 1 time per week Estimated Hrs Per Day: .25 hour per day Agreement: Yes Rehab Potential: Good Time/GCodes Start Time: 11:30 Stop Time: 11:45 Total Time Billed (hr/min): 15 Billed Treatment Time visit, 12 minutes evaluation low intensity, 3 minutes exercise CAM CROFT OT Jan 12, 2018 13:55
--- NOTE | 2018-01-12 16:36 | Consultation-Cardiology ---
HPI-Cardiology Cardiology Consultation Date of Consultation 01/12/18 Date of Admission Time Seen by Provider: 16:33 Indication: coronary artery disease HPI 77-year-old gentleman with history of coronary artery disease, hypertension hyperlipidemia, underwent C4-5 surgery yesterday, he denied any chest pain or palpitation. No syncope or near syncopal episodes. No claudications. Has been compliant with his medication. Home Medications & Allergies Allergies: Coded Allergies: meperidine (Unverified Allergy, Severe, POSSIBLE RESP ISSUES, 01/07/18) metoclopramide (Unverified Allergy, Mild, SEVERE N/V, 01/07/18) Home Medication List Reviewed: Yes [id number] Hx Patient Social History Marital Status: Employed/Student: retired Alcohol Use: Denies Use Recreational Drug Use: No Smoking Status: Former Smoker Type Used: Cigars Recent Foreign Travel: No Recent Infectious Disease Expo: No Recent Hopitalizations: No Physical Abuse Screen: No Sexual Abuse: No Immunizations Up To Date Date of Pneumonia Vaccine: Nov 19, 2015 Date of Influenza Vaccine: Nov 16, 2017 Past Medical History Past medical history as described below Family Medical History Family Medical Hx Noncontributory to his current condition Review of Systems Constitutional: no symptoms reported, see HPI, malaise EENTM: see HPI, no symptoms reported Respiratory: see HPI; No cough, No dyspnea on exertion, No hemoptysis, No orthopnea, No phlegm, No short of breath, No stridor, No wheezing, No other Cardiovascular: no symptoms reported, see HPI; No chest pain, No edema, No Hx of Intervention, No palpitations, No syncope, No vascular heart diseas, No other Gastrointestinal: no symptoms reported, see HPI Genitourinary: no symptoms reported, see HPI Musculoskeletal: see HPI, back pain, neck pain Skin: no symptoms reported, see HPI Psychiatric/Neurological: No Symptoms Reported, See HPI Physical Exam Vital Signs Vital Signs - First Documented 01/11/18 08:35 Temp 97.5 Pulse 73 Resp 20 B/P (MAP) 142/90 (107) Pulse Ox 98 O2 Delivery Room Air Capillary Refill : Less Than 3 Seconds Height, Weight, BMI Height: 5'6.00" Weight: 164lbs. 7.0oz. [id number]; 26.5 BMI Method:Stated General Appearance: No Apparent Distress, WD/WN Eyes: Bilateral Eye Normal Inspection, Bilateral Eye PERRL, Bilateral Eye EOMI HEENT: PERRL/EOMI, TMs Normal, Normal ENT Inspection, Pharynx Normal Neck: Full Range of Motion, Normal Inspection, Non Tender, Supple, Carotid Bruit Respiratory: Chest Non Tender, Lungs Clear, Normal Breath Sounds, No Accessory Muscle Use, No Respiratory Distress Cardiovascular: Regular Rate, Rhythm, No Edema, No Gallop, No JVD, No Murmur, Normal Peripheral Pulses Gastrointestinal: Normal Bowel Sounds, No Organomegaly, No Pulsatile Mass, Non Tender, Soft Back: Normal Inspection, No CVA Tenderness, No Vertebral Tenderness Extremity: Normal Capillary Refill, Normal Inspection, Normal Range of Motion, Non Tender, No Calf Tenderness, No Pedal Edema Neurologic/Psychiatric: Alert, Oriented x3, No Motor/Sensory Deficits, Normal Mood/Affect Skin: Normal Color, Warm/Dry Lymphatic: No Adenopathy A/P-Cardiology Admission Diagnosis Coronary artery disease Hypertension Hyperlipidemia C4-5 Discectomy Assessment/Plan Coronary artery disease, history of CABG, currently asymptomatic, has been followed by Dr. Peters, continue to monitor, I'll evaluate EKG and place patient on telemetry neck Hypertension, restart home medication monitor blood pressure Hyperlipidemia, monitor lipids Status post C4-5 skipped any and fusion. Recovering slowly. Clinical Quality Measures DVT/VTE Risk/Contraindication: Risk Factor Score Per Nursin RFS Level Per Nursing on Admit: 4+=Very High SUSANA LUKE MD Jan 12, 2018 16:36
[2018-01-12] MEDS: LACTULOSE SYRUP 10GM/15ML (ENULOSE) 30ML UDC PO SCH ×2 (17:41→21:17)
[2018-01-12] MEDS: BISACODYL 10 MG SUPP (DULCOLAX) PR SCH (18:23)
[2018-01-12] MEDS: doxAzosin 4 MG (CARDURA) TAB PO SCH (21:15)
[2018-01-12] MEDS: SIMvastatin 20 MG (ZOCOR) TAB PO SCH (21:16)
[2018-01-12] MEDS: lisINopril 20 MG (PRINIVIL) TABLET PO SCH (21:16)
[2018-01-13 04:00] VITALS: BP 169/75
[2018-01-13] MEDS ORDERED: HYDR-3812 PO ×2 (05:15→10:35)
[2018-01-13] MEDS: MULTIVIT W/MINERALS TAB (THERAGRAN M) PO SCH (05:17)
[2018-01-13] MEDS: HYDROcodone/APAP 10 MG/325 MG (LORTAB) TAB PO PRN ×3 (05:18→16:01)
--- NOTE | 2018-01-13 05:18 | Discharge Inst-Surgical ---
Discharge Inst-Surgical Depart Medication/Instructions New, Converted or Re-Newed RX: RX on Chart Consults/Follow Up Goal/Follow Up Appt.: Follow up with Dr. Espinoza in 2 weeks Patient Instructions: May shower Do not submerge incision May resume Aspirin, Fish oil, and CoQ10 on 01-16-18 Cervical collar when out of bed Activity Activity as Tolerated: No Activity Instructions: Avoid Stress to Incision Driving Instructions: No Driving for 2 Weeks Incentive Spirometry: Every 2 Hours While Awake Diet Discharge Diet: No Restrictions If Any Problems/Questions/Issu: Contact Your Physician, Go to Emergency Room Skin/Wound Care Infection Signs and Symptoms: Increased Redness, Increased Drainage, Increased Swelling, Temperature Above 101 F Bathing Instructions: Shower Operative Area Clean and Dry: Keep Incision Clean/Dry Steristrips: Leave Steristrips Intact AHMET BARNES Jan 13, 2018 05:18
--- NOTE | 2018-01-13 05:22 | Discharge Summary ---
Diagnosis/Chief Complaint Date of Admission Jan 11, 2018 at 08:30 Date of Discharge 01-13-18 Discharge Date: Jan 13, 2018 Discharge Time: 05:19 Admission Diagnosis Admission Diagnosis cervical stenosis with radiculopathy Discharge Diagnosis cervical stenosis with radiculopathy Reason Hospital Visit Scheduled surgical intervention Discharge Summary Hospital Course Hospital Course Patient admitted for scheduled surgical intervention. Patient underwent a C4-5 ACDF. Post-operatively the patient progressed well. There were no significant events during his hospital course. He had good pain control with oral analgesics , and was able to ambulate well on his own. He was stable discharge home on POD #2 Procedures None. Discharge Physical Examination Allergies: Coded Allergies: meperidine (Unverified Allergy, Severe, POSSIBLE RESP ISSUES, 01/07/18) metoclopramide (Unverified Allergy, Mild, SEVERE N/V, 01/07/18) Vitals & I&Os Vital Signs Date Time Temp Pulse Resp B/P (MAP) Pulse Ox O2 Delivery O2 Flow Rate FiO2 01/13/18 04:00 97.7 89 16 169/75 (106) 96 Room Air General Appearance: Alert, Oriented X3 Respiratory: Normal Air Movement Abdominal: Normal Bowel Sounds Skin: Other (Incision CDI) Neuro: Normal Gait, Normal Speech, Strength at 5/5 X4 Ext, Normal Tone, Sensation Intact, Cranial Nerves 3-12 NL Discharge Home Medications Reviewed and agree with Discharge Medication list on patient's Discharge Instruction sheet Condition at Discharge Stable Instructions to Patient/Family Please see electronic discharge instructions given to patient. Clinical Quality Measures DVT/VTE Risk/Contraindication: Risk Factor Score Per Nursin RFS Level Per Nursing on Admit: 4+=Very High AHMET BARNES Jan 13, 2018 05:22
[2018-01-13 06:01] LABS: BASOPHILS % (AUTO) 0 % (0-10); EOSINOPHILS % (AUTO) 0 % (0-10); HEMATOCRIT 38 % (40-54); HEMOGLOBIN 12.6 G/DL (13.3-17.7); LYMPHOCYTES # (AUTO) 0.7 X 10^3 (1.0-4.0); LYMPHOCYTES % (AUTO) 15 % (12-44); MEAN CORPUSCULAR HEMOGLOBIN 30 PG (25-34); MEAN CORPUSCULAR HGB CONC 33 G/DL (32-36); MEAN CORPUSCULAR VOLUME 91 FL (80-99); MEAN PLATELET VOLUME 11.5 FL (7.4-10.4); MONOCYTES # (AUTO) 0.6 X 10^3 (0.0-1.0); MONOCYTES % (AUTO) 13 % (0-12); NEUTROPHILS # (AUTO) 3.5 X 10^3 (1.8-7.8); NEUTROPHILS % (AUTO) 72 % (42-75); PLATELET COUNT 158 10^3/uL (130-400); RED CELL DISTRIBUTION WIDTH 12.8 % (10.0-14.5); WHITE BLOOD COUNT 4.8 10^3/uL (4.3-11.0)
[2018-01-13 06:24] LABS: ALANINE AMINOTRANSFERASE 12 U/L (0-55); ALBUMIN 4.1 GM/DL (3.2-4.5); ALKALINE PHOSPHATASE 80 U/L (40-136); BILIRUBIN,TOTAL 0.6 MG/DL (0.1-1.0); BUN/CREATININE RATIO 16; CALCIUM 10.3 MG/DL (8.5-10.1); CARBON DIOXIDE 21 MMOL/L (21-32); CHLORIDE 110 MMOL/L (98-107); CREATININE SERUM 0.76 MG/DL (0.60-1.30); GFR ESTIMATED > 60; GLUCOSE 116 MG/DL (70-105); SODIUM 141 MMOL/L (135-145); TOTAL PROTEIN 6.9 GM/DL (6.4-8.2)
--- NOTE | 2018-01-13 07:47 | Cardiology Progress Note ---
Subjective Date Seen by Provider: Jan 13, 2018 Time Seen by Provider: 07:46 Subjective/Events-last exam patient is sitting in a chair, did not sleep well last night, feeling better. Denied any chest pain or shortness of breath Review of Systems General: No Chills, No Night Sweats, No Fatigue, No Malaise, No Appetite, No Other HEENT: No Head Aches, No Visual Changes, No Eye Pain, No Ear Pain, No Dysphasia , No Sinus Congestion, No Post Nasal Drip, No Sore Throat, No Other Pulmonary: No Dyspnea, No Cough, No Pleuritic Chest Pain, No Other Cardiovascular: No: Chest Pain, Palpitations, Orthopnea, Paroxysmal Noc. Dyspnea, Edema, Lt Headedness, Other Objective-Cardiology Exam Last Set of Vital Signs Vital Signs 01/13/18 04:00 Temp 97.7 Pulse 89 Resp 16 B/P (MAP) 169/75 (106) Pulse Ox 96 O2 Delivery Room Air Capillary Refill : Less Than 3 Seconds I&O Intake and Output 01/13/18 00:00 Intake Total 2130 ml Balance 2130 ml Intake Oral 2130 ml # Voids 9 # Bowel Movements 2 General: Alert, Oriented X3 HEENT: Atraumatic, PERRLA Neck: Supple Lungs: Normal Air Movement Heart: Regular Rate, Normal S1, Normal S2, Other (sm at lsb) Abdomen: Normal Bowel Sounds Extremities: No Clubbing, No Cyanosis Skin: No Rashes, No Breakdown, Other (Incision CDI) Neuro: Normal Gait, Normal Speech, Strength at 5/5 X4 Ext, Normal Tone, Sensation Intact, Cranial Nerves 3-12 NL Results Lab Laboratory Tests 01/13/18 05:47 A/P-Cardiology Admission Diagnosis Coronary artery disease Hypertension Hyperlipidemia C4-5 Discectomy Assessment/Plan Coronary artery disease, history of CABG, currently asymptomatic, has been followed by Dr. Peters, continue to monitor Hypertension, add toprol and monitor tolerance and response Hyperlipidemia, monitor lipids Status post C4-5 skipped any and fusion. Recovering slowly. Clinical Quality Measures DVT/VTE Risk/Contraindication: Risk Factor Score Per Nursin RFS Level Per Nursing on Admit: 4+=Very High SUSANA LUKE MD Jan 13, 2018 07:47
[2018-01-13 07:54] VITALS: BP 142/83
[2018-01-13] MEDS: LACTULOSE SYRUP 10GM/15ML (ENULOSE) 30ML UDC PO SCH (07:56)
[2018-01-13] MEDS: BISACODYL 10 MG SUPP (DULCOLAX) PR SCH (08:07)
[2018-01-13] MEDS: ANTACID SUSP 30 ML UDC (MYLANTA) PO PRN (08:20)
[2018-01-13] MEDS ORDERED: BISACODYL 10 MG SUPP (DULCOLAX) PR SCH (09:00)
--- NOTE | 2018-01-13 09:29 | Progress Note-Hospitalist ---
Subjective HPI/CC On Admission Date Seen by Provider: Jan 13, 2018 Time Seen by Provider: 09:30 CC: Medical management following an uncomplicated cervical spine surgery by Dr Espinoza POD # 1 HPI: This is a 77yoWM clinic patient of Dr Valles who presents to [facility] following an uncomplicated cervical spine surgery. Patient is regaining the use of his left arm and his pain is controlled. 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 He is asking for a suppository and a laxative. I reviewed his home meds and he reports no issues with urination. Subjective/Events-last exam Patient doing well overall Checked meds and labs Nausea currently but meds given and patient doing better BM+ after suppository Ready for DC Review of Systems Gastrointestinal: Nausea Objective Exam Vital Signs Vital Signs Date Time Temp Pulse Resp B/P (MAP) Pulse Ox O2 Delivery O2 Flow Rate FiO2 01/13/18 16:00 98.9 82 18 151/82 (105) 94 Room Air Capillary Refill : Less Than 3 Seconds General Appearance: No Apparent Distress, WD/WN, Chronically ill Respiratory: Chest Non Tender, Lungs Clear, Normal Breath Sounds, No Accessory Muscle Use, No Respiratory Distress Cardiovascular: Regular Rate, Rhythm, No Edema, No Gallop, No JVD, Normal Peripheral Pulses, Systolic Murmur Neurologic/Psychiatric: Alert, Oriented x3, No Motor/Sensory Deficits, Normal Mood/Affect Results/Procedures Lab Laboratory Tests 01/13/18 05:47 Patient resulted labs reviewed. Assessment/Plan Assessment and Plan Assess & Plan/Chief Complaint Assessment: s/p uncomplicated cervical spine surgery by Dr Espinoza POD # 2 CAD CABG Cardiac murmur HTN Presbycusis HLP Plan: DC home Diagnosis/Problems Diagnosis/Problems (1) STENOSIS Status: Chronic (2) Left arm weakness Status: Chronic (3) CAD (coronary artery disease) Status: Chronic Qualifiers: Coronary Disease-Associated Artery/Lesion type: [place] artery [place] vs. 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
[2018-01-13 12:00] VITALS: BP 165/85
[2018-01-13] MEDS ORDERED: METO-351 PO (12:31)
[2018-01-13] MEDS ORDERED: UBID100C44 PO (12:35)
[2018-01-13] MEDS ORDERED: ASPI-999 PO (12:35)
[2018-01-13] MEDS ORDERED: FISH1CAP15 PO (12:35)
--- NOTE | 2018-01-13 13:48 | Occupational Ther Daily Note ---
OT Current Status-Daily Note Subjective Pt alert, ambulating around room. Agrees to therapy. No c/o pain. Pt to discharge today. 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 Mental Status/Objective Patient Orientation: Person, Place, Time, Situation Therapy Code Descriptions/Definitions Functional [place] Measure: 0=Not Assessed/NA 4=Minimal Assistance 1=Total Assistance 5=Supervision or Setup 2=Maximal Assistance 6=Modified [place] 3=Moderate Assistance 7=Complete [place] Other Treatment Pt declined shower stating that he will take one when he gets home. Pt completed toileting and toilet transfer independently. Washed hands standing at sink. Pt was able to doff sock then required assist to don. Pt stated that he has sock aides at home that he has used if unable pt's will do it. After therapy, pt lying in bed with call light/phone in reach. All needs met in room. OT Short Term Goals Short Term Goals 1=Demonstrate adherence to instructed precautions during ADL tasks. 2=Patient will verbalize/demonstrate understanding of assistive devices/ modifications for ADL. 3=Patient will improve strength/tolerance for activity to enable patient to perform ADL's. 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 Goal met. 1=Demonstrate adherence to instructed precautions during ADL tasks. 2=Patient will verbalize/demonstrate understanding of assistive devices/ modifications for ADL. 3=Patient will improve strength/tolerance for activity to enable patient to perform ADL's. OT Education/Plan Problem List/Assessment Pt would benefit from OT home program for UE exercise, to increase strength for ADLs. Discharge Recommendations Plan/Recommendations: Discharge/Goals Met Treatment Plan/Plan of Care Patient would benefit from OT for education, treatment and training to promote independence in ADL's, mobility, safety and/or upper extremity function for ADL' s. Plan of Care: UE Funct Exercise/Act Treatment Duration: Jan 12, 2018 Frequency: 1 time per week Estimated Hrs Per Day: .25 hour per day Agreement: Yes Rehab Potential: Good Time/GCodes Start Time: 13:23 Stop Time: 13:33 Total Time Billed (hr/min): 10 Billed Treatment Time 1 visit-FA 1 (10 min) AMADOU QUEVEDO Jan 13, 2018 13:48
[2018-01-13 16:00] VITALS: BP 151/82
== END 2018-01-13 17:30 | disposition home or self-care (01) | DRG 473 ==
LOC: 4TH 08:30 → SURG 08:31 → 4TH 14:18
PROVIDERS: ADMIT Orthopaedic Surgery Orthopaedic Surgery of the Spine; ATTEND Orthopaedic Surgery Orthopaedic Surgery of the Spine
PROC: 0RB30ZZ Excision of Cervical Vertebral Disc, Open Approach (ICD-10-PCS; 2018-01-11)
PROC: 0RG10A0 Fusion of Cervical Vertebral Joint with Interbody Fusion Device, Anterior Approach, Anterior Column, Open Approach (ICD-10-PCS; principal; 2018-01-11 11:41)
DX: M47.12 Other spondylosis with myelopathy, cervical region (principal); M48.02 Spinal stenosis, cervical region; M54.12 Radiculopathy, cervical region; I35.0 Nonrheumatic aortic (valve) stenosis; M06.9 Rheumatoid arthritis, unspecified; I10 Essential (primary) hypertension; I25.10 Atherosclerotic heart disease of native coronary artery without angina pectoris; R01.1 Cardiac murmur, unspecified; G47.33 Obstructive sleep apnea (adult) (pediatric); E78.5 Hyperlipidemia, unspecified; K59.09 Other constipation; K57.90 Diverticulosis of intestine, part unspecified, without perforation or abscess without bleeding; M19.91 Primary osteoarthritis, unspecified site; H91.10 Presbycusis, unspecified ear; I25.2 Old myocardial infarction; Z87.891 Personal history of nicotine dependence; Z95.1 Presence of aortocoronary bypass graft; Z95.5 Presence of coronary angioplasty implant and graft; Z90.79 Acquired absence of other genital organ(s); Z85.46 Personal history of malignant neoplasm of prostate; Z96.642 Presence of left artificial hip joint; Z96.659 Presence of unspecified artificial knee joint
CPT/HCPCS: 36415; 80053; 85025; 86850; 86900; 86901; 93005; 94664

== ENCOUNTER 2018-06-20 11:11 | Emergency (ER) | payer MEDICARE ==
[~2018-06-20] VITALS: Ht 157.5 cm; Wt 72.6 kg
[~2018-06-20 11:11] MED LIST changes: +METO-351 PO
--- OUTSIDE RECORDS SUMMARY | 2018-06-20 11:18 | XMS REPORT | Clinical Summary ---
Author Author [facility] Organization [facility] Address Unknown Phone Unavailable Care Team Providers [facility] Director Name Role Phone Cyrus Valles MD PCP Diana Soto MD Unavailable Source Comments Some departments are not documenting in the electronic medical record. If you do not see the information that you expected, contact Release of Information in the Health Information Management department at [phone] for further assistance in locating additional records.[facility] Allergies Comments Active Allergy Reactions Severity Noted Date Meperidine ANAPHYLAXIS 12/19/2008 Metoclopramide NAUSEA AND 12/19/2008 VOMITING Medications End Date Status Medication Sig Dispensed Refills Start Date Active doxazosin (CARDURA) 2 mg Take 1 Tab by 0 tablet mouth Daily. Active benazepril (LOTENSIN) 40 Take 1 Tab by 0 mg tablet mouth Daily. Active EZETIMIBE/SIMVASTATIN Take 1 Tab by 0 (VYTORIN 10-80 PO) mouth Daily. Active coenzyme Q10,+, (CO Q-10) Take 4 Caps 0 100 mg Cap by mouth Daily. (400mg) Active vitamins, multiple Cap Take 1 Cap by 0 mouth Daily. Active VIT C/DL-E Take 1 Tab by 0 AC/LUT/COPPER/ZNOX mouth Daily. (PRESERVISION PO) Active ibuprofen (MOTRIN) 200 mg Take 4 Tabs 0 tablet by mouth Daily as needed for Pain. Active ASPIRIN/CAFFEINE (ANACIN Take 2 Tabs 0 PO) by mouth Daily as needed. Active omeprazole DR,+, Take 1 Cap by 0 (PRILOSEC) 20 mg capsule mouth Daily. Active aspirin EC 81 mg tablet Take 1 Tab by 0 0 mouth Daily. 9 Active oxycodone/acetaminophen Take 1-2 Tabs 40 0 (PERCOCET) 5/325 mg by mouth 9 tablet Every 4 Hours as needed for Pain. Active hyoscyamine (LEVSIN/SL) 1 Tab Every 4 30 0 0.125 mg tablet Hours as 9 needed. Active senna/docusate Take 2 Tabs 30 0 (SENOKOT-S) 8.6/50 mg by mouth 9 tablet Daily. Active Carson-3 Fatty Take 1 Cap by 0 0 Acids-Vitamin E (FISH mouth Twice 9 OIL) 1,000 mg Cap Daily. Active levofloxacin (LEVAQUIN) Take 1 Tab by 15 0 250 mg tablet mouth Every 9 24 Hours. Active polymyxin/bacitracin/laura/ Apply to 1 tube 0 HC (CORTISPORIN) 1 % affected area 9 topical ointment Three Times Daily. Active oxybutynin XL (DITROPAN Take 1 Tab by 15 0 XL) 15 mg tablet mouth Daily. 9 Active Problems Problem Noted Date Prostate cancer 01/03/2009 Family History Medical History Relation Name Comments Heart Attack Father Cancer Mother Relation Name Status Comments Father Mother Social History Date Tobacco Use Types Packs/Day Years Used Former Smoker Comments: smoked cigars on and off till about 6 yrs ago Alcohol Use Drinks/Week oz/Week Comments No drank socially on weekends when young - not now Sex Assigned at Date Recorded Not on file Industry Job Start Date Occupation Not on file Not on file Not on file Travel End Travel History Travel Start No recent travel history available. Last Filed Vital Signs Time Taken Vital Sign Reading 01/03/2009 3:00 PM [facility] Blood Pressure 119/71 01/03/2009 3:00 PM [facility] Pulse 78 01/03/2009 3:00 PM [facility] Temperature 37.4 C (99.3 F) - Respiratory Rate - 01/03/2009 3:00 PM [facility] Oxygen Saturation 94% - Inhaled Oxygen - Concentration 12/19/2008 12:00 PM [facility] Weight 74.4 kg (164 lb 0.4 oz) 12/19/2008 12:00 PM [facility] Height 167.6 cm (5' 6") 12/19/2008 12:00 PM [facility] Body Mass Index 26.47 Plan of Treatment Health Maintenance Due Date Last Done Comments PHYSICAL (COMPREHENSIVE) 08/30/1947 EXAM DTAP/TDAP VACCINES (1 - 1958 Tdap) SHINGLES RECOMBINANT 1990 VACCINE (1 of 2) PNEUMONIA (PCV13/PPSV23) 2005 VACCINES (1 of 2 - PCV13) INFLUENZA VACCINE 11/09/2018 Results Not on filefrom Last 3 Months
--- OUTSIDE RECORDS SUMMARY | 2018-06-20 11:19 | XMS REPORT | Continuity of Care Document ---
Author Organization Unknown Address Unknown Allergies Active Description Code Type Severity Reaction Onset Reported/Identified Relationship to Patient Clinical Status Yes DEMEROL [id number] BRANDNAME N/A N/A Yes REGLAN [id number] BRANDNAME N/A N/A Yes meperidine [id number] Drug Allergy Unknown N/A 06/11/2006 Yes metoclopramide [id number] Drug Allergy Unknown N/A 06/11/2006 Yes meperidine [id number] Drug Allergy Severe POSSIBLE RESP I 01/07/2018 Yes metoclopramide [id number] Drug Allergy Mild SEVERE N/V 01/07/2018 Medications There is no data. Problems Date [...] HOLGUIN MD Ot M54.16 05/22/2015 KIERA HOLGUIN MD, Ot M54.16 05/30/2015 KIERA HOLGUIN MD Ot M54.16 RADICULOPATHY, LUMBAR REGION 07/11/2015 Ot 719.45 JOINT PAIN- PELVIS 07/11/2015 Ot V43.64 HIP JOINT REPLACEMENT STATUS 08/10/2015 Ot 719.45 JOINT PAIN- PELVIS 08/10/2015 Ot V43.64 HIP JOINT REPLACEMENT STATUS 10/16/2015 ATUL JEFFREY DO Ot 733.00 OSTEOPOROSIS NOS 10/16/2015 ATUL JEFFREY DO Ot 724.2 LUMBAGO 10/16/2015 KEIKO JEFFREYP Ot 733.00 OSTEOPOROSIS NOS 10/16/2015 ATUL JEFFREY DO Ot 733.00 OSTEOPOROSIS NOS 10/16/2015 KIERA HOLGUIN MD Ot M54.16 RADICULOPATHY, LUMBAR REGION 10/16/2015 ATUL JEFFREY DO Ot 733.00 OSTEOPOROSIS NOS 10/16/2015 ATUL JEFFREY DO Ot 724.2 LUMBAGO 10/16/2015 KEIKO JEFFREYP Ot 733.00 OSTEOPOROSIS NOS 10/16/2015 ATUL JEFFREY DO Ot 733.00 OSTEOPOROSIS NOS 10/16/2015 KIERA HOLGUIN MD Ot M54.16 RADICULOPATHY, LUMBAR REGION 10/19/2015 ATUL JEFFREY DO Ot M81.0 AGE-RELATED OSTEOPOROSIS W/O CURRENT PAT 11/12/2015 KEIKO JEFFREYP Ot M81.0 AGE-RELATED OSTEOPOROSIS W/O CURRENT PAT 11/14/2015 KEIKO JEFFREY Ot M81.0 AGE-RELATED OSTEOPOROSIS W/O CURRENT PAT 03/12/2016 ATUL JEFFREY DO Ot 733.00 OSTEOPOROSIS NOS 03/12/2016 ATUL JEFFREY DO Ot 724.2 LUMBAGO 03/12/2016 KEIKO JEFFREYP Ot 733.00 OSTEOPOROSIS NOS 03/12/2016 JEFFREY DO, ATUL Ortiz Ot 733.00 OSTEOPOROSIS NOS 03/12/2016 EZIO CERVANTES, KIERA Ortiz Ot M54.16 RADICULOPATHY, LUMBAR REGION 03/12/2016 ATUL [...] Ot M19.032 PRIMARY OSTEOARTHRITIS, LEFT WRIST 07/07/2016 JEFFREYATUL IZAGUIRRE DO Ot K43.2 INCISIONAL HERNIA WITHOUT OBSTRUCTION OR 07/07/2016 ATUL JEFFREY DO Ot Q63.1 LOBULATED, FUSED AND HORSESHOE KIDNEY 07/08/2016 JEFFREY DOATUL Ot K43.2 INCISIONAL HERNIA WITHOUT OBSTRUCTION OR 07/08/2016 JEFFREY DOATUL Ot Q63.1 LOBULATED, FUSED AND HORSESHOE KIDNEY 07/08/2016 JEFFREY DOATUL Ot K43.2 INCISIONAL HERNIA WITHOUT OBSTRUCTION OR 07/08/2016 JEFFREY DOATUL Ot Q63.1 LOBULATED, FUSED AND HORSESHOE KIDNEY 07/11/2016 JEFFREY DOATUL Ot K43.2 INCISIONAL HERNIA WITHOUT OBSTRUCTION OR 07/11/2016 JEFFREY DOATUL Ot Q63.1 LOBULATED, FUSED AND HORSESHOE KIDNEY 07/11/2016 JEFFREY DOATUL Ot K43.2 INCISIONAL HERNIA WITHOUT OBSTRUCTION OR 07/11/2016 JEFFREY DOATUL Ot Q63.1 LOBULATED, FUSED AND HORSESHOE KIDNEY 07/11/2016 JEFFREY DOATUL Ot K43.2 INCISIONAL HERNIA WITHOUT OBSTRUCTION OR 07/11/2016 JEFFREY DOATUL Ot Q63.1 LOBULATED, FUSED AND HORSESHOE KIDNEY 07/24/2016 JEFFREYATUL IZAGUIRRE DO Ot K43.2 INCISIONAL HERNIA WITHOUT OBSTRUCTION OR 07/24/2016 ATUL JEFFREY DO Ot Q63.1 LOBULATED, FUSED AND HORSESHOE KIDNEY 07/25/2016 JANIS DUVALL MD, Ot K43.9 VENTRAL HERNIA WITHOUT OBSTRUCTION OR [...] I10 ESSENTIAL (PRIMARY) HYPERTENSION 07/31/2016 JANIS DUVALL MD, Ot I25.10 ATHSCL HEART DISEASE OF [place] CORONARY 07/31/2016 JANIS DUVALL MD Ot K21.9 GASTRO-ESOPHAGEAL REFLUX DISEASE WITHOUT 07/31/2016 JANIS DUVALL MD Ot K40.90 UNIL INGUINAL HERNIA, W/O OBST OR GANGR, 07/31/2016 JANIS DUVALL MD Ot M06.9 RHEUMATOID ARTHRITIS, UNSPECIFIED 07/31/2016 JANIS DUVALL MD Ot Z79.82 UPHOLSTERER LIMOUSINE AND HEARSE (CURRENT) USE OF ASPIRIN 07/31/2016 JANIS DUVALL MD Ot Z79.899 OTHER UPHOLSTERER LIMOUSINE AND HEARSE (CURRENT) DRUG THERAPY 07/31/2016 JANIS DUVALL MD Ot Z85.46 PERSONAL HISTORY OF MALIGNANT NEOPLASM O 07/31/2016 JANIS DUVALL MD Ot Z95.1 PRESENCE OF AORTOCORONARY BYPASS GRAFT 07/31/2016 JANIS DUVALL MD Ot Z95.5 PRESENCE OF CORONARY ANGIOPLASTY IMPLANT 07/31/2016 JANIS DUVALL MD Ot Z96.642 PRESENCE OF LEFT ARTIFICIAL HIP JOINT 07/31/2016 JANIS DUVALL MD Ot Z96.651 PRESENCE OF RIGHT ARTIFICIAL KNEE JOINT 07/31/2016 JANIS DUVALL MD Ot E78.5 HYPERLIPIDEMIA, UNSPECIFIED 07/31/2016 JANIS DUVALL MD Ot I10 ESSENTIAL (PRIMARY) HYPERTENSION 07/31/2016 JANIS DUVALL MD, Ot I25.10 ATHSCL HEART DISEASE OF [place] CORONARY 07/31/2016 JANIS DUVALL MD Ot K21.9 GASTRO-ESOPHAGEAL REFLUX DISEASE WITHOUT 07/31/2016 JANIS DUVALL MD Ot K40.90 UNIL INGUINAL HERNIA, W/O OBST OR GANGR, 07/31/2016 JANIS DUVALL MD Ot M06.9 RHEUMATOID ARTHRITIS, UNSPECIFIED 07/31/2016 JANIS DUVALL MD Ot Z79.82 UPHOLSTERER LIMOUSINE AND HEARSE (CURRENT) USE OF ASPIRIN 07/31/2016 JANIS DUVALL MD, Ot Z79.899 OTHER UPHOLSTERER LIMOUSINE AND HEARSE (CURRENT) DRUG THERAPY 07/31/2016 JANIS DUVALL MD Ot Z85.46 PERSONAL HISTORY OF MALIGNANT NEOPLASM O 07/31/2016 JANIS DUVALL MD Ot Z95.1 PRESENCE OF AORTOCORONARY BYPASS GRAFT 07/31/2016 JANIS DUVALL MD Ot Z95.5 PRESENCE OF CORONARY ANGIOPLASTY IMPLANT 07/31/2016 JANIS DUVALL MD Ot Z96.642 PRESENCE OF LEFT ARTIFICIAL HIP JOINT 07/31/2016 JANIS DUVALL MD Ot Z96.651 PRESENCE OF RIGHT ARTIFICIAL KNEE JOINT 08/03/2016 MOISES FERNANDEZ MD Ot G89.18 OTHER ACUTE POSTPROCEDURAL PAIN 08/03/2016 MOISES FERNANDEZ MD Ot I10 ESSENTIAL (PRIMARY) HYPERTENSION 08/03/2016 MOISES FERNANDEZ MD Ot I25.10 ATHSCL HEART DISEASE OF [place] CORONARY 08/03/2016 MOISES FERNANDEZ MD Ot I25.2 OLD MYOCARDIAL INFARCTION 08/03/2016 MOISES FERNANDEZ MD, Ot M06.9 RHEUMATOID ARTHRITIS, UNSPECIFIED 08/03/2016 MOISES FERNANDEZ MD, Ot R10.9 UNSPECIFIED ABDOMINAL PAIN 08/03/2016 MOISES FERNANDEZ MD, Ot Z79.82 USP (CURRENT) USE OF ASPIRIN 08/03/2016 MOISES FERNANDEZ [...] OTHER SPECIFIED POSTPROCEDURAL STATES 08/04/2016 JANIS DUVALL MD, Ot E78.5 HYPERLIPIDEMIA, UNSPECIFIED 08/04/2016 JANIS DUVALL MD Ot I10 ESSENTIAL (PRIMARY) HYPERTENSION 08/04/2016 JANIS DUVALL MD, Ot I25.10 ATHSCL HEART DISEASE OF [place] CORONARY 08/04/2016 JANIS DUVALL MD, Ot K21.9 GASTRO-ESOPHAGEAL REFLUX DISEASE WITHOUT 08/04/2016 JANIS DUVALL MD Ot K40.90 UNIL INGUINAL HERNIA, W/O OBST OR GANGR, 08/04/2016 JANIS DUVALL MD, Ot M06.9 RHEUMATOID ARTHRITIS, UNSPECIFIED 08/04/2016 JANIS DUVALL MD, Ot Z79.82 UPHOLSTERER LIMOUSINE AND HEARSE (CURRENT) USE OF ASPIRIN 08/04/2016 JANIS DUVALL MD Ot Z79.899 OTHER USP (CURRENT) DRUG THERAPY 08/04/2016 JANIS DUVALL MD Ot Z85.46 PERSONAL HISTORY OF MALIGNANT NEOPLASM O 08/04/2016 JANIS DUVALL MD Ot Z95.1 PRESENCE OF AORTOCORONARY BYPASS GRAFT 08/04/2016 JANIS DUVALL MD Ot Z95.5 PRESENCE OF CORONARY ANGIOPLASTY IMPLANT 08/04/2016 JADIEL CERVANTES, JANIS Avery Ot Z96.642 PRESENCE OF LEFT ARTIFICIAL HIP JOINT 08/04/2016 JADIEL CERVANTES, JANIS Avery Ot Z96.651 PRESENCE OF RIGHT ARTIFICIAL KNEE JOINT 08/05/2016 MOISES FERNANDEZ MD Ot G89.18 OTHER ACUTE POSTPROCEDURAL PAIN 08/05/2016 MOISES FERNANDEZ MD Ot I10 ESSENTIAL (PRIMARY) HYPERTENSION 08/05/2016 MOISES FERNANDEZ MD Ot I25.10 ATHSCL HEART DISEASE OF [place] CORONARY 08/05/2016 MOISES FERNANDEZ MD, Ot I25.2 OLD MYOCARDIAL INFARCTION 08/05/2016 MOISES FERNANDEZ MD, Ot M06.9 RHEUMATOID ARTHRITIS, UNSPECIFIED 08/05/2016 MOISES FERNANDEZ MD, Ot R10.9 UNSPECIFIED ABDOMINAL PAIN 08/05/2016 MOISES FERNANDEZ MD, Ot Z79.82 UPHOLSTERER LIMOUSINE AND HEARSE (CURRENT) USE OF ASPIRIN 08/05/2016 MOISES FERNANDEZ MD, Ot Z85.46 PERSONAL HISTORY OF MALIGNANT NEOPLASM O 08/05/2016 MOISES FERNANDEZ MD, Ot Z85.828 PERSONAL HISTORY OF OTHER MALIGNANT NEOP 08/05/2016 MOISES FERNANDEZ MD, Ot Z87.19 PERSONAL HISTORY OF OTHER DISEASES OF TH 08/05/2016 MOISES FERNANDEZ MD Ot 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( 08/05/2016 MOISES FERNANDEZ MD Ot Z95.5 PRESENCE OF CORONARY ANGIOPLASTY IMPLANT 08/05/2016 MOISES FERNANDEZ MD Ot Z98.890 OTHER SPECIFIED POSTPROCEDURAL STATES 01/07/2018 ATUL JEFFREY DO Ot 733.00 OSTEOPOROSIS NOS 01/07/2018 ATUL JEFFREY DO Ot 724.2 LUMBAGO 01/07/2018 KEIKO JEFFREY Ot 733.00 OSTEOPOROSIS NOS 01/07/2018 ATUL JEFFREY DO Ot 733.00 OSTEOPOROSIS NOS 01/07/2018 EZIO CERVANTES, KIERA Ortiz Ot M54.16 RADICULOPATHY, LUMBAR REGION 01/07/2018 ATUL JEFFREY DO Ot M81.0 AGE-RELATED OSTEOPOROSIS W/O CURRENT PAT 01/07/2018 RACHELE KEIKO Joe DOLL Ot M81.0 AGE-RELATED OSTEOPOROSIS W/O CURRENT PAT 01/07/2018 ATUL JEFFREY DO, Ot M19.032 PRIMARY OSTEOARTHRITIS, LEFT WRIST 01/07/2018 ATUL JEFFREY DO Ot K43.2 INCISIONAL HERNIA WITHOUT OBSTRUCTION OR 01/07/2018 ATUL JEFFREY DO Ot Q63.1 LOBULATED, FUSED AND HORSESHOE KIDNEY 01/07/2018 KIERA HOLGUIN MD, Ot I10 ESSENTIAL (PRIMARY) HYPERTENSION 01/07/2018 KIERA HOLGUIN MD, Ot M48.062 SPINAL STENOSIS, LUMBAR REGION WITH NEUR 01/07/2018 KIERA HOLGUIN MD, Ot Z01.812 ENCOUNTER FOR PREPROCEDURAL LABORATORY E 01/07/2018 KIERA HOLGUIN MD, Ot Z11.2 ENCOUNTER FOR SCREENING FOR OTHER BACTER 01/07/2018 KIERA HOLGUIN MD, Ot 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 01/13/2018 KIERA HOLGUIN MD, Ot E78.5 HYPERLIPIDEMIA, UNSPECIFIED 01/13/2018 KIERA HOLGUIN MD, Ot G47.33 OBSTRUCTIVE SLEEP APNEA (ADULT) (PEDIATR 01/13/2018 KIERA HOLGUIN MD, Ot H91.10 PRESBYCUSIS, UNSPECIFIED EAR 01/13/2018 KIERA HOLGUIN MD, Ot I10 ESSENTIAL (PRIMARY) HYPERTENSION 01/13/2018 KIERA HOLGUIN MD, Ot I25.10 ATHSCL HEART DISEASE OF [place] CORONARY 01/13/2018 KIERA HOLGUIN MD, Ot I25.2 OLD MYOCARDIAL INFARCTION 01/13/2018 KIERA HOLGUIN MD, Ot 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 01/13/2018 KIERA HOLGUIN MD, Ot K57.90 DVRTCLOS OF INTEST, PART UNSP, W/O PERF 01/13/2018 KIERA HOLGUIN MD, Ot K59.09 OTHER CONSTIPATION 01/13/2018 KIERA HOLGUIN MD Ot M06.9 RHEUMATOID ARTHRITIS, UNSPECIFIED 01/13/2018 KIERA HOLGUIN MD, Ot M19.91 PRIMARY OSTEOARTHRITIS, UNSPECIFIED SITE 01/13/2018 KIERA HOLGUIN MD, Ot M47.12 OTHER SPONDYLOSIS WITH MYELOPATHY, CERVI 01/13/2018 KIERA HOLGUIN MD, Ot M48.02 SPINAL STENOSIS, CERVICAL REGION 01/13/2018 KIERA HOLGUIN MD, Ot M54.12 RADICULOPATHY, CERVICAL REGION 01/13/2018 KIERA HOLGUIN MD Ot R01.1 CARDIAC MURMUR, UNSPECIFIED 01/13/2018 KIERA HOLGUIN MD, Ot Z85.46 PERSONAL HISTORY OF MALIGNANT NEOPLASM O 01/13/2018 KIERA HOLGUIN MD, Ot Z87.891 PERSONAL HISTORY OF NICOTINE DEPENDENCE 01/13/2018 KIERA HOLGUIN MD, Ot 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( 01/13/2018 KIERA HOLGUIN MD, Ot Z95.1 PRESENCE OF AORTOCORONARY BYPASS GRAFT 01/13/2018 KIERA HOLGUIN MD, Ot Z95.5 PRESENCE OF CORONARY ANGIOPLASTY IMPLANT 01/13/2018 KIERA HOLGUIN MD, Ot Z96.642 PRESENCE OF LEFT ARTIFICIAL HIP JOINT 01/13/2018 KIERA HOLGUIN MD, Ot Z96.659 PRESENCE OF UNSPECIFIED ARTIFICIAL KNEE Procedures Code Description Performed By Performed On [id number] EXCISION OF CERVICAL VERTEBRAL DISC, OPE 01/11/2018 [id number] FUSION CERV JT W INTBD FUS DEV, ANT APPR 01/11/2018 Results Test Result Range Complete blood count [...] 5.50 % 5.40-6.60 AvGlu 117 mg/dL 70-110 Methicillin resistant Staphylococcus aureus (MRSA) screening culture - 10:50 Methicillin resistant Staphylococcus aureus (MRSA) screening culture NEG NRG Complete blood count (CBC) with automated white blood cell (WBC) differential - 01/07/18 10:55 Blood leukocytes automated count (number/volume) 5.4 10*3/uL 4.3-11.0 Blood erythrocytes automated count (number/volume) 4.19 10*6/uL 4.35-5.85 Venous blood hemoglobin measurement (mass/volume) 12.8 g/dL 13.3-17.7 Blood hematocrit (volume fraction) 38 % 40-54 Automated erythrocyte mean corpuscular volume 91 [foz_us] 80-99 Automated erythrocyte mean corpuscular hemoglobin (mass per erythrocyte) 31 pg 25-34 Automated erythrocyte mean corpuscular hemoglobin concentration measurement ( mass/volume) 33 g/dL 32-36 Automated erythrocyte distribution width ratio 13.3 % 10.0-14.5 Automated blood platelet count (count/volume) 155 10*3/uL 130-400 Automated blood platelet mean volume measurement 11.9 [foz_us] 7.4-10.4 Automated blood neutrophils/100 leukocytes 70 % 42-75 Automated blood lymphocytes/100 leukocytes 17 % 12-44 Blood monocytes/100 leukocytes 13 % 0-12 Automated blood eosinophils/100 leukocytes 0 % 0-10 Automated blood basophils/100 leukocytes 0 % 0-10 Blood neutrophils automated count (number/volume) 3.8 10*3 1.8-7.8 Blood lymphocytes automated count (number/volume) 0.9 10*3 1.0-4.0 Blood monocytes automated count (number/volume) 0.7 10*3 0.0-1.0 Automated eosinophil count 0.0 10*3/uL 0.0-0.3 Automated blood basophil count (count/volume) 0.0 10*3/uL 0.0-0.1 Blood type T Indirect antibody screen panel - 01/07/18 10:55 ABO+Rh group AP NRG Blood group antibody screen NEGATIVE NRG Blood type T Indirect antibody screen panel - 01/11/18 09:15 ABO+Rh group AP NRG Transfusion band number [id number] NRG Blood group antibody screen NEGATIVE NRG Complete blood count (CBC) with automated white blood cell (WBC) differential - 01/13/18 05:47 Blood leukocytes automated count (number/volume) 4.8 10*3/uL 4.3-11.0 Blood erythrocytes automated count (number/volume) 4.20 10*6/uL 4.35-5.85 Venous blood hemoglobin measurement (mass/volume) 12.6 g/dL 13.3-17.7 Blood hematocrit (volume fraction) 38 % 40-54 Automated erythrocyte mean corpuscular volume 91 [foz_us] 80-99 Automated erythrocyte mean corpuscular hemoglobin (mass per erythrocyte) 30 pg 25-34 Automated erythrocyte mean corpuscular hemoglobin concentration measurement ( mass/volume) 33 g/dL 32-36 Automated erythrocyte distribution width ratio 12.8 % 10.0-14.5 Automated blood platelet count (count/volume) 158 10*3/uL 130-400 Automated blood platelet mean volume measurement 11.5 [foz_us] 7.4-10.4 Automated blood neutrophils/100 leukocytes 72 % 42-75 Automated blood lymphocytes/100 leukocytes 15 % 12-44 Blood monocytes/100 leukocytes 13 % 0-12 Automated blood eosinophils/100 leukocytes 0 % 0-10 Automated blood basophils/100 leukocytes 0 % 0-10 Blood neutrophils automated count (number/volume) 3.5 10*3 1.8-7.8 Blood lymphocytes automated count (number/volume) 0.7 10*3 1.0-4.0 Blood monocytes automated count (number/volume) 0.6 10*3 0.0-1.0 Automated eosinophil count 0.0 10*3/uL 0.0-0.3 Automated blood basophil count (count/volume) 0.0 10*3/uL 0.0-0.1 Comprehensive metabolic panel - 01/13/18 05:47 Serum or plasma sodium measurement (moles/volume) 141 mmol/L 135-145 Serum or plasma potassium measurement (moles/volume) 4.0 mmol/L 3.6-5.0 Serum or plasma chloride measurement (moles/volume) 110 mmol/L 98-107 Carbon dioxide 21 mmol/L 21-32 Serum or plasma anion gap determination (moles/volume) 10 mmol/L 5-14 Serum or plasma urea nitrogen measurement (mass/volume) 12 mg/dL 7-18 Serum or plasma creatinine measurement (mass/volume) 0.76 mg/dL 0.60-1.30 Serum or plasma urea nitrogen/creatinine mass ratio 16 NRG Serum or plasma creatinine measurement with calculation of estimated glomerular filtration rate > NRG Serum or plasma glucose measurement (mass/volume) 116 mg/dL 70-105 Serum or plasma calcium measurement (mass/volume) 10.3 mg/dL 8.5-10.1 Serum or plasma total bilirubin measurement (mass/volume) 0.6 mg/dL 0.1-1.0 Serum or plasma alkaline phosphatase measurement (enzymatic activity/volume) 80 U/L 40-136 Serum or plasma aspartate aminotransferase measurement (enzymatic activity/ volume) 24 U/L 5-34 Serum or plasma alanine aminotransferase measurement (enzymatic activity/volume ) 12 U/L 0-55 Serum or plasma protein measurement (mass/volume) 6.9 g/dL 6.4-8.2 Serum or plasma albumin measurement (mass/volume) 4.1 g/dL 3.2-4.5 CALCIUM CORRECTED 10.2 mg/dL 8.5-10.1 Encounters ACCT No. Visit Date/Time Discharge Status Pt. Type Provider Facility Loc./Unit Complaint [id number] 07/13/2013 05:47:09 07/13/2013 23:59:59 CLS Outpatient Ayaz Wang [id number] 10/06/2017 13:11:05 Document Registration [id number] 08/18/2017 10:33:47 Document Registration [id number] 08/18/2017 06:43:48 Document Registration [id number] 02/12/2017 13:09:56 Document Registration [id number] 01/07/2017 08:55:34 Document Registration [id number] 01/11/2018 08:30:00 01/13/2018 17:30:00 DIS Inpatient KIERA HOLGUIN MD [facility] 4TH STENOSIS [id number] 01/07/2018 10:04:00 01/07/2018 13:18:00 DIS Outpatient KIERA HOLGUIN MD [facility] PREOP STENOSIS [id number] 08/03/2016 07:09:00 08/03/2016 11:27:00 DIS Emergency MOISES FERNANDEZ MD [facility] ER PAIN FROM HERNIA SURG [id number] 07/30/2016 08:06:00 07/31/2016 19:23:00 DIS Outpatient JANIS DUVALL MD [facility] VENTRAL HERNIA [id number] 07/25/2016 08:09:00 07/25/2016 08:50:00 DIS Outpatient JANIS DUVALL MD [facility] PREOP VENTRAL HERNIA [id number] 07/03/2016 13:37:00 07/03/2016 23:59:59 CLS Outpatient ATUL JEFFREY DO [facility] RAD INCISIONAL HERNIA [id number] 03/12/2016 11:04:00 03/12/2016 23:59:59 CLS Outpatient ATUL JEFFREY DO [facility] RAD ARTHRALGIA [id number] 10/19/2015 11:17:00 10/19/2015 23:59:59 CLS Outpatient KEIKO JEFFREY [facility] M81.0 [id number] 10/16/2015 11:18:00 10/16/2015 23:59:59 CLS Outpatient ATUL JEFFREY DO [facility] M81.0 [id number] 06/09/2015 10:20:00 06/09/2015 23:59:59 CLS Outpatient JESSE MAICOL BRIGHT [facility] QUICK [id number] 05/02/2015 10:01:00 05/02/2015 23:59:59 CLS Outpatient KIERA HOLGUIN MD [facility] RAD RADICULOPATHY [id number] 10/19/2014 11:51:00 10/19/2014 23:59:59 CLS Outpatient ATUL JEFFREY DO [facility] RAD 733.00-OSTEOPOROSIS [id number] 05/25/2014 13:33:00 05/25/2014 23:59:59 CLS Outpatient KEIKO JEFFREY [facility] OSTEOPOROSIS [id number] 02/07/2014 07:05:00 02/07/2014 23:59:59 CLS Outpatient ATUL JEFFREY DO [facility] RAD CHRONIC LUMBAGO [id number] 10/22/2012 15:05:00 10/22/2012 23:59:59 CLS Outpatient ATUL JEFFREY DO [facility] OSTEOPOROSIS [id number] 06/21/2012 07:50:00 06/21/2012 23:59:59 CLS Outpatient [id number] 06/15/2012 12:27:00 06/15/2012 23:59:59 CLS Outpatient [id number] 07/13/2018 11:30:00 PEN Preadmit ATUL JEFFREY DO [facility] RAD AGE RELATED OSTEOPOROSIS W/O CURRENT FRACTURE [id number] 06/29/2018 09:42:00 PEN Preadmit KEITH BISHOP MD [facility] ONC [id number] 06/20/2018 11:12:00 ACT Emergency MIGUE MARX MD [facility] ER FALL 06/17, L SIDE PAIN, DIZZY [id number] 01/16/2014 08:23:00 Document Registration [id number] 07/09/2011 14:44:00 Document Registration [id number] 11/17/2008 07:16:00 Document Registration [id number] 11/17/2008 07:10:00 Document Registration [id number] 12/18/2017 07:12:00 12/18/2017 23:59:00 DIS Outpatient Vernon Patino
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
--- NOTE | 2018-06-20 11:58 | NUR ---
RT NOTIFIED OF NEEDING IS TEACHING.
[2018-06-20 11:59] LABS: BASOPHILS % (AUTO) 0 % (0-10); EOSINOPHILS % (AUTO) 0 % (0-10); HEMATOCRIT 40 % (40-54); HEMOGLOBIN 13.5 G/DL (13.3-17.7); LYMPHOCYTES # (AUTO) 0.9 X 10^3 (1.0-4.0); LYMPHOCYTES % (AUTO) 19 % (12-44); MEAN CORPUSCULAR HEMOGLOBIN 30 PG (25-34); MEAN CORPUSCULAR HGB CONC 33 G/DL (32-36); MEAN CORPUSCULAR VOLUME 91 FL (80-99); MEAN PLATELET VOLUME 11.6 FL (7.4-10.4); MONOCYTES # (AUTO) 0.6 X 10^3 (0.0-1.0); MONOCYTES % (AUTO) 13 % (0-12); NEUTROPHILS # (AUTO) 3.3 X 10^3 (1.8-7.8); NEUTROPHILS % (AUTO) 68 % (42-75); PLATELET COUNT 142 10^3/uL (130-400); RED CELL DISTRIBUTION WIDTH 12.8 % (10.0-14.5); WHITE BLOOD COUNT 4.8 10^3/uL (4.3-11.0)
[2018-06-20] MEDS ORDERED: fentaNYL INJECTION 100 MCG/2 ML AMP ONE (12:16)
[2018-06-20 12:25] LABS: ALANINE AMINOTRANSFERASE 18 U/L (0-55); ALBUMIN 4.2 GM/DL (3.2-4.5); ALKALINE PHOSPHATASE 72 U/L (40-136); BILIRUBIN,TOTAL 0.6 MG/DL (0.1-1.0); BUN/CREATININE RATIO 18; CALCIUM 11.4 MG/DL (8.5-10.1); CARBON DIOXIDE 25 MMOL/L (21-32); CHLORIDE 109 MMOL/L (98-107); CREATININE SERUM 0.92 MG/DL (0.60-1.30); GFR ESTIMATED > 60; GLUCOSE 103 MG/DL (70-105); POTASSIUM 4.6 MMOL/L (3.6-5.0); SODIUM 142 MMOL/L (135-145); TOTAL PROTEIN 6.9 GM/DL (6.4-8.2)
[2018-06-20] MEDS ORDERED: fentaNYL INJECTION 100 MCG/2 ML AMP IVP ONE (12:30)
--- NOTE | 2018-06-20 12:45 | NUR ---
REPORT AND CARE TURNED OVER TO SILVESTRE Leavitt RN.
--- NOTE | 2018-06-20 13:02 | Diagnostic Imaging Report ---
Indication: Dyspnea with dizziness and syncope for 2 days. Comparison: 03/24/2012. Discussion: Two views of the chest were obtained. Elevated left hemidiaphragm is stable. Stable normal heart size. Median sternotomy is present. No focal consolidation, pleural fluid, or pneumothorax. Degenerative disease is again noted within the shoulders. Impression: 1. No acute cardiopulmonary process. Dictated by: Dictated on workstation # [id number]
--- NOTE | 2018-06-20 13:15 | Diagnostic Imaging Report ---
PROCEDURE: CT head and CT cervical spine without contrast. TECHNIQUE: Multiple contiguous axial images were obtained through the brain and cervical spine without the use of intravenous contrast. Sagittal and coronal reformations through the cervical spine were then performed. Auto Exposure Controls were utilized during the CT exam to meet ALARA standards for radiation dose reduction. INDICATION: Syncopal episode two days with head and neck pain. COMPARISON: None. DISCUSSION: Head: Diffuse brain volume loss is likely age related. There is a dense mass within the right frontal lobe which measures 2.3 x 1.9 cm and abuts the right anterior falx. Whether this is an intraparenchymal or extra-axial mass is indeterminate. This could represent a meningioma though underlying malignancy is not excluded. No comparisons are available and there is no contrast on this exam. Recommend either contrast-enhanced CT or perforated brain MRI without and with contrast for further evaluation. There is no obvious surrounding vasogenic edema. No significant mass effect. No acute intracranial hemorrhage, midline shift, hydrocephalus. Chronic lacunar infarct noted within the left basal ganglia. White matter hypoattenuation is nonspecific though not greater than expected for age related chronic small vessel ischemic disease. The orbits, sinuses, mastoid air cells, and calvarium are unremarkable. Cervical spine: Anterior cervical discectomy and fusion at C4-C5 is noted. There is advanced facet arthropathy present within the cervical spine. Large bridging syndesmophyte noted at C3-C4. No acute fracture or subluxation is identified otherwise. Atherosclerotic disease is noted within the bilateral carotid bifurcations. Soft tissues are otherwise unremarkable. IMPRESSION: 1. Indeterminate mass within the right frontal lobe as described. See above recommendations. 2. Degenerative and postoperative changes of the cervical spine as described. No acute fracture. Dictated by: Dictated on workstation # [id number]
[2018-06-20] MEDS ORDERED: ACHD5005 PO (13:22)
--- NOTE | 2018-06-20 13:30 | NUR ---
PT DENIES ANY NEEDS OR C/O AT THIS TIME, PHYSICIAN TO GO OVER CT RESULTS WITH PT, DISCHARGE WILL FOLLOW
--- NOTE | 2018-06-20 14:00 | NUR ---
PHYSICIAN IN ROOM WITH PT
[2018-06-20 14:07] VITALS: BP 154/104
== END 2018-06-20 14:10 | disposition home or self-care (01) ==
LOC: EDUNIT# 11:11 → ER 11:12
DX: R42 Dizziness and giddiness (principal); R22.0 Localized swelling, mass and lump, head; R07.81 Pleurodynia; R40.2142 Coma scale, eyes open, spontaneous, at arrival to emergency department; R40.2252 Coma scale, best verbal response, oriented, at arrival to emergency department; R40.2362 Coma scale, best motor response, obeys commands, at arrival to emergency department; I25.2 Old myocardial infarction; I25.10 Atherosclerotic heart disease of native coronary artery without angina pectoris; I10 Essential (primary) hypertension; M06.9 Rheumatoid arthritis, unspecified; Z82.49 Family history of ischemic heart disease and other diseases of the circulatory system; Z85.828 Personal history of other malignant neoplasm of skin; Z85.46 Personal history of malignant neoplasm of prostate; Z87.19 Personal history of other diseases of the digestive system; Z79.82 Long term (current) use of aspirin; Z87.891 Personal history of nicotine dependence; Z95.5 Presence of coronary angioplasty implant and graft; Z95.1 Presence of aortocoronary bypass graft; Z96.651 Presence of right artificial knee joint; Z96.642 Presence of left artificial hip joint; Z90.79 Acquired absence of other genital organ(s); Z98.890 Other specified postprocedural states; W19.XXXA Unspecified fall, initial encounter; W22.09XA Striking against other stationary object, initial encounter
CPT/HCPCS: 36415; 70450; 71046; 72125; 80053; 85025; 86141; 93005; 94664

== ENCOUNTER → 2018-06-22 | Outpatient (CLI) | payer MEDICARE ==
[~2018-06-22] MED LIST changes: +GADOBUTROL 7.5 MMOL/7.5 ML (GADAVIST) VIAL IV ONE
--- NOTE | 2018-06-22 13:06 | Diagnostic Imaging Report ---
CLINICAL INDICATION: Patient with abnormal head CT, headaches, and dizziness. Patient fell and hit head on 06/17/2018. Patient has history of skin cancer removed from face. EXAM: MRI of the brain performed without and with 7 cc of Gadavist IV contrast. Sequences include axial DWI, ADC map, axial gradient echo, axial T2, axial FLAIR, axial T1, axial T1 post IV contrast, coronal T1 fat-sat post IV contrast, and sagittal T1 post IV contrast. COMPARISON: Head CT without contrast dated 06/20/2018. FINDINGS: There is a 3 mm focal area of elevated DWI signal, located in the left cerebellum, seen on series 3, image 6. There is associated normalized ADC map signal with very subtle increased high T2 signal in the region. There is no associated IV contrast enhancement. This may represent a subacute focal infarct. There is a 4 mm area of elevated DWI signal with normalized ADC map and no significant high T2 signal in the region located in the left frontal lobe periventricular region which is best seen on the axial DWI sequence series 3, image 18. This may represent a subacute focal infarct. There is no large vessel territorial cerebral infarct seen. There is no intracranial hemorrhage, brain herniation, or midline shift. There is an avidly enhancing dural-based mass along the right parafalcine frontal region which measures 2.1 cm x 2.3 cm x 2.0 cm (AP x Trans x CC). There is small dural tail seen. This most likely represents a meningioma and correlates to the abnormality seen on the comparison head CT. There are no other areas of abnormal IV contrast enhancement seen. There are focal, patchy, and mildly confluent areas of high T2 signal white matter changes seen throughout both cerebral hemispheres, likely representing chronic small vessel ischemic disease. There is diffuse brain parenchymal volume loss seen. The [place] vascular structures show no gross abnormality as visualized. The pituitary gland, sella, and suprasellar regions are unremarkable as visualized. There is moderate mucosal thickening involving the right maxillary sinus. There is mild mucosal thickening involving the ethmoid sinus and left maxillary sinus. There is small amount of fluid in the left mastoid air cells. IMPRESSION: 1: There are two punctate areas of elevated DWI sequence involving the left cerebellum and left frontal lobe periventricular region. These areas may represent focal areas of subacute infarct. The largest one measures 4 mm and is in the left frontal lobe periventricular region. 2: There is a 2.3 cm dural-based avidly enhancing mass in the right parafalcine frontal lobe region which is most consistent with meningioma. This correlates to the abnormality seen on the comparison head CT. 3: Chronic small vessel ischemic disease and leukoaraiosis. 4: Paranasal sinus disease. Dictated by: Dictated on workstation # [id number]
== END ==
LOC: RAD 10:15
PROVIDERS: ATTEND Internal Medicine
DX: I67.82 Cerebral ischemia (principal); I67.81 Acute cerebrovascular insufficiency; G93.89 Other specified disorders of brain; J32.8 Other chronic sinusitis; W19.XXXA Unspecified fall, initial encounter; Z85.828 Personal history of other malignant neoplasm of skin
CPT/HCPCS: 70553

== ENCOUNTER → 2018-08-17 | Outpatient (CLI) | payer MEDICARE ==
[~2018-08-17] MED LIST changes: -GADOBUTROL 7.5 MMOL/7.5 ML (GADAVIST) VIAL IV ONE; +VIT-10 PO; -[UNRECOGNIZED DRUG - CODE] PO
--- NOTE | 2018-08-17 16:07 | Diagnostic Imaging Report ---
INDICATION: Age-related osteoporosis without current fracture, screening for osteoporosis, personal history of osteoporosis. COMPARISON: October 19, 2014. FINDINGS: AP Spine L1-L4: [BMD (g/cm2): N/A] [T-Score: N/A] [Z-Score: N/A] [BMD Previous: N/A] [BMD % Change: N/A] LT Hip Neck: [BMD (g/cm2): N/A] [T-Score: N/A] [Z-Score: N/A] LT Hip Total: [BMD (g/cm2):N/A] [T-Score:N/A] [Z-Score: N/A] [BMD Previous: N/A] [BMD % Change: N/A] RT Hip Neck: [BMD (g/cm2):0.726] [T-Score:-2.6] [Z-Score:-1.0] RT Hip Total: [BMD (g/cm2):0.772] [T-score:-2.3] [Z-Score:-1.1] [BMD Previous:0.741] [BMD % Change:4.2] T-score within the right radius 33% is -2.3. *Indicates significant change from prior examination based on 95% confidence level. World Health Organization criteria for BMD interpretation classify patients as Normal (T-score at or above -1.0), Osteopenic (T-score between -1.0 and -2.5) or Osteoporotic (T-score at or below -2.5). LIMITATIONS AND MODIFICATION: The lumbar spine and left hip were not evaluated secondary to postsurgical changes. FRACTURE RISK (FRAX SCORE): The ten year probability of (%): Major Osteoporotic Fracture: [N/A] Hip Fracture: [N/A] IMPRESSION: 1. Osteoporosis. 2. No significant change in bone mineral density since prior examination. 3. See below National Osteoporosis Foundation guidelines on when to potentially initiate pharmacologic therapy. Based on the National Osteoporosis Foundation Guidelines, pharmacologic treatment should be initiated in any of the following, unless clinical conditions suggest otherwise: * Any patient with prior fragility fracture of the hip or vertebrae. A spine fracture indicates 5X risk for subsequent spine fracture and 2X risk for subsequent hip fracture. * Osteoporosis (T-score <-2.5). * Postmenopausal women and men age 50 and older with low bone mass/osteopenia (T-score between -1.0 and -2.5) by DXA and 10-year major osteoporotic fracture greater than 20% or a 10-year probability of hip fracture greater than 3%. These fracture risks are supplied above in the FRAX score, if applicable. * Clinician judgement and/or patient preferences may indicate treatment for people with 10-year fracture probabilities above or below these levels. Dictated by: Dictated on workstation # [id number]
== END ==
LOC: RAD 08:24
PROVIDERS: ATTEND Internal Medicine
DX: M81.0 Age-related osteoporosis without current pathological fracture (principal)
CPT/HCPCS: 77080

== ENCOUNTER 2018-09-27 18:37 | Emergency (ER) | payer MEDICARE ==
[~2018-09-27] VITALS: Ht 165.1 cm; Wt 71.2 kg
[~2018-09-27 18:37] MED LIST changes: +CYAN-41 PO; -CYAN10006 PO
[2018-09-27] MEDS ORDERED: NS IV 1000 ML 1,000 ML ONE (19:56)
[2018-09-27] MEDS ORDERED: NS IV 1000 ML 1,000 ML IV SCH (20:02)
--- NOTE | 2018-09-27 20:07 | ED Abdominal Pain ---
General Chief Complaint: - Urinary Stated Complaint: GROIN PAIN Nursing Triage Note: PT AMB TO TRIAGE WITH COMPLAINT OF GROIN PAIN. STATES HAS WORSENED OVER THE LAST THREE DAYS. Sepsis Screen: No Definite Risk Source of Information: Patient, Spouse Exam Limitations: No Limitations History of Present Illness Date Seen by Provider: Sep 27, 2018 Time Seen by Provider: 19:52 Initial Comments Patient presents to ER by private conveyance with chief complaint of abdominal pain for the past 2 days progressively worsening in his suprapubic and left lower quadrant abdominal region. He says is worse when trying to have a bowel movement. When constipated tachycardic this morning and had a small amount of stool out but not very significant. No blood in stool. Over the weekend and Thursday he and his both were sick with a viral bug that lasted for about a day of diarrhea. He has a history of coronary disease. He is not having any chest pain shortness of breath fevers chills. He did take an antacid with minimal relief. He is not having any nausea. He says the pain comes and goes and when it is at its most severe point about 10 out of 10 right now at rest it is fine. He does not want anything for it. He has a history of kidney stones. Allergies and Home Medications Allergies Coded Allergies: meperidine (Unverified Allergy, Severe, POSSIBLE RESP ISSUES, 01/07/18) metoclopramide (Unverified Allergy, Mild, SEVERE N/V, 01/07/18) Home Medications Aspirin 81 Mg Tab.chew, 81 MG PO HS, (Reported) MAY RESUME 01/16/18 Ciprofloxacin HCl 500 Mg Tablet, 500 MG PO BID Prescribed by: MIGUE MARX on 09/27/18 2235 Cyanocobalamin (Vitamin B-12) 1,000 Mcg Tablet, 1,000 MCG PO HS, (Reported) Doxazosin Mesylate 4 Mg Tablet, 2 MG PO HS, (Reported) TAKES 1/2 (4MG) TABLET Fish Oil/Dha/Epa 1 Each Capsule, 1,200 MG PO HS, (Reported) MAY RESUME 01/16/18 Hydrocodone Bit/Acetaminophen 1 Tab Tab, 1-2 EACH PO Q6H PRN for PAIN-MODERATE Prescribed by: MIGUE MARX on 06/20/18 1322 Hydrocodone/Acetaminophen 1 Each Tablet, 1 TAB PO Q6H PRN for PAIN-MODERATE Prescribed by: AHMET BARNES on 01/13/18 0515 Hydrocodone/Acetaminophen 1 Each Tablet, 1 EACH PO Q6H PRN for PAIN-MODERATE Prescribed by: TROY ARAUJO on 01/13/18 1035 Lisinopril 20 Mg Tablet, 20 MG PO HS, (Reported) Metoprolol Succinate 25 Mg Tab.er.24h, 25 MG PO DAILY Prescribed by: TROY ARAUJO on 01/13/18 1231 Metronidazole 500 Mg Tablet, 500 MG PO TIDWM Prescribed by: MIGUE MARX on 09/27/18 2235 Multivit-Min/FA/Lycopen/Lutein 1 Each Tablet, 1 TAB PO HS, (Reported) Ondansetron 4 Mg Tab.rapdis, 4 MG PO Q6H PRN for NAUSEA/VOMITING Prescribed by: MIGUE MARX on 09/27/18 2235 Pravastatin Sodium 40 Mg Tablet, 40 MG PO HS, (Reported) Ubidecarenone 100 Mg Capsule, 100 MG PO HS, (Reported) MAY RESUME 01/16/18 Patient Home Medication List Home Medication List Reviewed: Yes Review of Systems Review of Systems Constitutional: No chills, No diaphoresis EENTM: No Eye Pain, No Ear Pain Respiratory: Denies Cough, Denies Shortness of Air Cardiovascular: Denies Chest Pain, Denies Lightheadedness Gastrointestinal: See HPI, Abdominal Pain, Constipated, Diarrhea; Denies Nausea Genitourinary: Denies Burning, Denies Discharge Musculoskeletal: No back pain, No joint pain Past Aikuatw-Bkbint-Gnclvl Hx Patient Social History Alcohol Use: Denies Use Recreational Drug Use: No Smoking Status: Former Smoker Type Used: Cigars Recent Foreign Travel: No Contact w/Someone Who Travel: No Recent Infectious Disease Expo: No Recent Hopitalizations: No Immunizations Up To Date Date of Pneumonia Vaccine: Nov 19, 2015 Date of Influenza Vaccine: Nov 16, 2017 Seasonal Allergies Seasonal Allergies: No Past Medical History Surgeries: Yes (CABG,HERNIA X4, R TKR, cyst removed in stomach, Left hip replaced x2,) CABG, Coronary Stent, Joint Replacement, Orthopedic, Prostatectomy Respiratory: No Cardiac: Yes ([place] 2011, BY PASS 2011) Coronary Artery Disease, Heart Attack, Hypertension Neurological: No Reproductive Disorders: No Sexually Transmitted Disease: No HIV/AIDS: No Genitourinary: No Gastrointestinal: Yes Abdominal Hernia, Chronic Constipation, Diverticulosis Musculoskeletal: Yes Arthritis, Rheumatoid Arthritis, Chronic Back Pain Endocrine: No HEENT: Yes Cataract Loss of Vision: Bilateral Hearing Impairment: Denies Cancer: Yes (PROSTATE CA) Skin What Type of Treatment Did You: Surgical Intervention Psychosocial: No Integumentary: Yes (SKIN CA BURNED OFF RECENTLY) Blood Disorders: No Adverse Reaction/Blood Tranf: No (HAS HAD BLOOD WITH NO REACTION) Family Medical History Hypertension Physical Exam Vital Signs Vital Signs - First Documented 09/27/18 18:47 Temp 100.1 Pulse 75 Resp 16 B/P (MAP) 129/101 (110) Pulse Ox 96 O2 Delivery Room Air Capillary Refill : Less Than 3 Seconds Height/Weight/BMI Height: 5'5.00" Weight: 157lbs. 7.0oz. [id number]; 26.5 BMI Method:Stated General Appearance: WD/WN, mild distress HEENT: PERRL/EOMI, pharynx normal Neck: full range of motion, normal inspection Respiratory: lungs clear, normal breath sounds, no respiratory distress, no accessory muscle use Cardiovascular: normal peripheral pulses, regular rate, rhythm Peripheral Pulses: 2+ Radial Pulses (R), 2+ Radial Pulses (L) Gastrointestinal: normal bowel sounds, guarding; No rebound; tenderness (Suprapubic and left lower quadrant abdomen are acutely tender to palpation but no mesenteric signs) Neurologic/Psychiatric: alert, normal mood/affect, oriented x 3 Skin: normal color, warm/dry Progress/Results/Core Measures Results/Orders Lab Results Laboratory Tests Test 09/27/18 20:00 09/27/18 20:09 Range/Units Urine Color YELLOW Urine Clarity CLEAR Urine pH 5 5-9 Urine Specific [place] 1.020 1.016-1.022 Urine Protein NEGATIVE NEGATIVE Urine Glucose (UA) NEGATIVE NEGATIVE Urine Ketones NEGATIVE NEGATIVE Urine Nitrite NEGATIVE NEGATIVE Urine Bilirubin NEGATIVE NEGATIVE Urine Urobilinogen NORMAL NORMAL MG/DL Urine Leukocyte Esterase NEGATIVE NEGATIVE Urine RBC (Auto) NEGATIVE NEGATIVE Urine RBC NONE /HPF Urine WBC NONE /HPF Urine Squamous Epithelial Cells RARE /HPF Urine Crystals NONE /LPF Urine Bacteria TRACE /HPF Urine Casts NONE /LPF Urine Mucus SMALL H /LPF Urine Culture Indicated NO White Blood Count 7.5 4.3-11.0 10^3/uL Red Blood Count 3.97 L 4.35-5.85 10^6/uL Hemoglobin 11.9 L 13.3-17.7 G/DL Hematocrit 36 L 40-54 % Mean Corpuscular Volume 90 80-99 FL Mean Corpuscular Hemoglobin 30 25-34 PG Mean Corpuscular Hemoglobin Concent 33 32-36 G/DL Red Cell Distribution Width 13.5 10.0-14.5 % Platelet Count 127 L 130-400 10^3/uL Mean Platelet Volume 11.4 H 7.4-10.4 FL Neutrophils (%) (Auto) 77 H 42-75 % Lymphocytes (%) (Auto) 10 L 12-44 % Monocytes (%) (Auto) 13 H 0-12 % Eosinophils (%) (Auto) 0 0-10 % Basophils (%) (Auto) 0 0-10 % Neutrophils # (Auto) 5.7 1.8-7.8 X 10^3 Lymphocytes # (Auto) 0.7 L 1.0-4.0 X 10^3 Monocytes # (Auto) 1.0 0.0-1.0 X 10^3 Eosinophils # (Auto) 0.0 0.0-0.3 10^3/uL Basophils # (Auto) 0.0 0.0-0.1 10^3/uL Sodium Level 139 135-145 MMOL/L Potassium Level 4.0 3.6-5.0 MMOL/L Chloride Level 110 H 98-107 MMOL/L Carbon Dioxide Level 21 21-32 MMOL/L Anion Gap 8 5-14 MMOL/L Blood Urea Nitrogen 17 7-18 MG/DL Creatinine 0.83 0.60-1.30 MG/DL Estimat Glomerular Filtration Rate > 60 BUN/Creatinine Ratio 20 Glucose Level 102 70-105 MG/DL Calcium Level 10.6 H 8.5-10.1 MG/DL Corrected Calcium 10.8 H 8.5-10.1 MG/DL Total Bilirubin 0.7 0.1-1.0 MG/DL Aspartate Amino Transf (AST/SGOT) 15 5-34 U/L Alanine Aminotransferase (ALT/SGPT) 7 0-55 U/L Alkaline Phosphatase 78 40-136 U/L C-Reactive Protein High Sensitivity 5.76 H 0.00-0.50 MG/DL Total Protein 6.3 L 6.4-8.2 GM/DL Albumin 3.8 3.2-4.5 GM/DL My Orders Orders - MIGUE MARX Ua Culture If Indicated (09/27/18 19:55) Ns Iv 1000 Ml (Sodium Chloride 0.9%) (09/27/18 19:56) Cbc With Automated Diff (09/27/18 20:02) Comprehensive Metabolic Panel (09/27/18 20:02) Hs C Reactive Protein (09/27/18 20:02) Ed Iv/Invasive Line Start (09/27/18 20:02) Ns Iv 1000 Ml (Sodium Chloride 0.9%) (09/27/18 20:02) Ct Abdomen/Pelvis W (09/27/18 20:04) Iohexol Injection (Omnipaque 350 Mg/Ml 1 (09/27/18 20:30) Received Contrast (Hold Metformin- Contr (09/27/18 20:30) Ns (Ivpb) (Sodium Chloride 0.9% Ivpb Bag (09/27/18 20:30) Metronidazole 500mg/100ml Ivpb (Flagyl 5 (09/27/18 22:00) Ciprofloxacin Iv 400mg/200ml (Cipro Iv S (09/27/18 22:00) Ed Iv/Invasive Line Start (09/27/18 21:48) Ns Iv 500 Ml (Sodium Chloride 0.9%) (09/27/18 21:48) Medications Given in ED Current Medications Medications Dose Ordered Sig/Chi Route Start Time Stop Time Status Last Admin Dose Admin Ciprofloxacin/ Dextrose 200 ml @ 200 mls/hr ONCE ONCE IV 09/27/18 22:00 09/27/18 22:59 DC 09/27/18 22:31 200 MLS/HR Metronidazole 100 ml @ 100 mls/hr ONCE ONCE IV 09/27/18 22:00 09/27/18 22:59 DC 09/27/18 22:31 100 MLS/HR Sodium Chloride 500 ml @ 0 mls/hr Q0M ONCE IV 09/27/18 21:48 09/27/18 21:50 DC 09/27/18 22:30 0 MLS/HR Vital Signs/I&O 09/27/18 18:47 Temp 100.1 Pulse 75 Resp 16 B/P (MAP) 129/101 (110) Pulse Ox 96 O2 Delivery Room Air Blood Pressure Mean: 110 Progress Progress Note : Time: 21:41 Progress Note Diverticulitis without perforation or abscess or free fluid or air. No evidence of sepsis labs or vital signs. Utilizing a shared decision making process the patient would prefer to go home and try outpatient therapy first. Were going to give him some antibiotics before he leaves. He's not had any nausea and he has Zofran and hydrocodone at home if he needs it. Diagnostic Imaging Diagonstic Imaging: CT (Without IV contrast.) Plain Films/CT/US/NM/MRI: abdomen, pelvis Comments NAME: [facility]AYMOND [facility] REC#: [id number] PT STATUS: REG ER : 1940 PHYSICIAN: MIGUE MARX MD ADMIT DATE: 09/27/18/ER Signed Date of Exam:09/27/18 CT ABDOMEN/PELVIS W PROCEDURE: CT abdomen and pelvis with contrast. TECHNIQUE: Multiple contiguous axial images were obtained through the abdomen and pelvis after administration of intravenous contrast. Auto Exposure Controls were utilized during the CT exam to meet ALARA standards for radiation dose reduction. INDICATION: Pelvic pain COMPARISON: 08/03/2016 FINDINGS: There is marked elevation left hemidiaphragm. This is unchanged from the prior examination. The superior aspect of the left diaphragm is nonvisualized on this series. Otherwise, the right lung base is clear. 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 The gallbladder and solid organs are otherwise unremarkable. There is diverticulosis of the sigmoid colon with moderate inflammatory change compatible with diverticulitis. There is no free air, free fluid or abscess formation. The small bowel is normal. Osseous and vascular structures are stable. There has been prior left hip arthoplasty. Laminectomy and fusion is seen in the lumbar spine. IMPRESSION: 1. Stable elevated left hemidiaphragm. The superior aspect of the diaphragm and left lung base were not visualized on this series. 2. No acute diverticulitis of the sigmoid colon without evidence of abscess, free air or bowel obstruction. 3. Normal variant horseshoe kidney. Dictated by: Dictated on workstation # [id number] Dict: 09/27/182114 Trans: 09/27/182124 [facility] [id number] Interpreted by: NGUYEN MCPHERSON Electronically signed by: NGUYEN MCPHERSON 09/27/182124 Reviewed: Reviewed by Me Departure Impression Primary Impression: Diverticulitis of intestine without perforation or abscess without bleeding Qualified Codes: K57.32 - Diverticulitis of large intestine without perforation or abscess without bleeding Disposition: 01 HOME, SELF-CARE Condition: Stable Departure-Patient Inst. Decision time for Depature: 22:33 Referrals: ATUL JEFFREY DO (PCP/Family) Primary Care Physician Patient Instructions: Diverticulitis (DC) Add. Discharge Instructions: Please merchandise pickup/receiving associate the ciprofloxacin and take one capsule twice daily for the next week. upsetter setter up the Flagyl and take one capsule 3 times a day for the next week. Follow-up with your primary care doctor this week for reevaluation. Return to the ER if you're having intractable pain nausea or fever. You may use Zofran 1 tablet under the tongue every 6 hours if you're experiencing nausea or vomiting. For your pain you may use Tylenol 650 mg every 8 hours or your hydrocodone pain medicine as prescribed. Stick to a liquid diet until your symptoms are improving and you're not having nausea or significant pain. Then you may advance your diet to more bland foods such as bananas, rice, applesauce and toast. All discharge instructions reviewed with patient and/or family. Voiced understanding. Scripts Ondansetron (Ondansetron Odt) 4 Mg Tab.rapdis 4 MG PO Q6H PRN for NAUSEA/VOMITING, #8 TAB 0 Refills Prov: MIGUE MARX 09/27/18 Metronidazole (Flagyl) 500 Mg Tablet 500 MG PO TIDWM, #21 TAB 0 Refills Prov: MIGUE MARX 09/27/18 Ciprofloxacin HCl (Ciprofloxacin HCl) 500 Mg Tablet 500 MG PO BID, #14 TAB Prov: MIGUE MARX 09/27/18 Copy Copies To 1: ATUL JEFFREY TITUS J Sep 27, 2018 20:07
[2018-09-27 20:10] LABS: BILIRUBIN,URINE NEGATIVE (NEGATIVE); CLARITY,URINE CLEAR; COLOR,URINE YELLOW; GLUCOSE, URINE (UA) NEGATIVE (NEGATIVE); KETONES,URINE NEGATIVE (NEGATIVE); LEUKOCYTE ESTERASE ,URINE NEGATIVE (NEGATIVE); NITRITE,URINE NEGATIVE (NEGATIVE); PH,URINE 5 (5-9); PROTEIN,URINE NEGATIVE (NEGATIVE); UROBILINOGEN,URINE NORMAL (NORMAL)
[2018-09-27 20:15] LABS: BASOPHILS % (AUTO) 0 % (0-10); EOSINOPHILS % (AUTO) 0 % (0-10); HEMATOCRIT 36 % (40-54); HEMOGLOBIN 11.9 G/DL (13.3-17.7); LYMPHOCYTES # (AUTO) 0.7 X 10^3 (1.0-4.0); LYMPHOCYTES % (AUTO) 10 % (12-44); MEAN CORPUSCULAR HEMOGLOBIN 30 PG (25-34); MEAN CORPUSCULAR HGB CONC 33 G/DL (32-36); MEAN CORPUSCULAR VOLUME 90 FL (80-99); MEAN PLATELET VOLUME 11.4 FL (7.4-10.4); MONOCYTES % (AUTO) 13 % (0-12); NEUTROPHILS # (AUTO) 5.7 X 10^3 (1.8-7.8); NEUTROPHILS % (AUTO) 77 % (42-75); PLATELET COUNT 127 10^3/uL (130-400); RED CELL DISTRIBUTION WIDTH 13.5 % (10.0-14.5); WHITE BLOOD COUNT 7.5 10^3/uL (4.3-11.0)
[2018-09-27 20:16] LABS: BACTERIA,URINE TRACE /HPF
[2018-09-27 20:17] LABS: SQUAMOUS EPITHELIAL CELL,UR RARE /HPF
[2018-09-27] MEDS ORDERED: HOLD METFORMIN - RECEIVED CONTRAST 20 ML VIAL IV SCH (20:30)
[2018-09-27] MEDS ORDERED: IOHEXOL 350 MG/ML 100 ML (OMNIPAQUE 350) VIAL IV ONE (20:30)
[2018-09-27] MEDS ORDERED: NS 100 ML (IVPB) BAG IV ONE (20:30)
[2018-09-27 20:34] LABS: ALANINE AMINOTRANSFERASE 7 U/L (0-55); ALBUMIN 3.8 GM/DL (3.2-4.5); ALKALINE PHOSPHATASE 78 U/L (40-136); BILIRUBIN,TOTAL 0.7 MG/DL (0.1-1.0); CALCIUM 10.6 MG/DL (8.5-10.1); CARBON DIOXIDE 21 MMOL/L (21-32); GLUCOSE 102 MG/DL (70-105); TOTAL PROTEIN 6.3 GM/DL (6.4-8.2)
[2018-09-27 20:44] LABS: BUN/CREATININE RATIO 20; CHLORIDE 110 MMOL/L (98-107); CREATININE SERUM 0.83 MG/DL (0.60-1.30); GFR ESTIMATED > 60; SODIUM 139 MMOL/L (135-145)
--- NOTE | 2018-09-27 21:23 | Diagnostic Imaging Report ---
PROCEDURE: CT abdomen and pelvis with contrast. TECHNIQUE: Multiple contiguous axial images were obtained through the abdomen and pelvis after administration of intravenous contrast. Auto Exposure Controls were utilized during the CT exam to meet ALARA standards for radiation dose reduction. INDICATION: Pelvic pain COMPARISON: 08/03/2016 FINDINGS: There is marked elevation left hemidiaphragm. This is unchanged from the prior examination. The superior aspect of the left diaphragm is nonvisualized on this series. Otherwise, the right lung base is clear. 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 The gallbladder and solid organs are otherwise unremarkable. There is diverticulosis of the sigmoid colon with moderate inflammatory change compatible with diverticulitis. There is no free air, free fluid or abscess formation. The small bowel is normal. Osseous and vascular structures are stable. There has been prior left hip arthoplasty. Laminectomy and fusion is seen in the lumbar spine. IMPRESSION: 1. Stable elevated left hemidiaphragm. The superior aspect of the diaphragm and left lung base were not visualized on this series. 2. No acute diverticulitis of the sigmoid colon without evidence of abscess, free air or bowel obstruction. 3. Normal variant horseshoe kidney. Dictated by: Dictated on workstation # [id number]
[2018-09-27] MEDS ORDERED: NS IV 500 ML 500 ML IV ONE (21:48)
[2018-09-27] MEDS ORDERED: CIPROFLOXACIN IV 400MG/200ML 200 ML IV ONE (22:00)
[2018-09-27] MEDS ORDERED: metroNIDAZOLE 500MG/100ML IVPB 100 ML IV ONE (22:00)
[2018-09-27] MEDS ORDERED: METR500T PO (22:35)
[2018-09-27] MEDS ORDERED: ONDA4TAB11 PO (22:35)
[2018-09-27] MEDS ORDERED: CIPR500T4 PO (22:35)
[2018-09-27 23:48] VITALS: BP 113/78
== END 2018-09-27 23:40 | disposition home or self-care (01) ==
LOC: EDUNIT# 18:37 → ER 18:38
DX: K57.32 Diverticulitis of large intestine without perforation or abscess without bleeding (principal); I25.10 Atherosclerotic heart disease of native coronary artery without angina pectoris; I10 Essential (primary) hypertension; I25.2 Old myocardial infarction; M06.9 Rheumatoid arthritis, unspecified; Z85.46 Personal history of malignant neoplasm of prostate; Z85.828 Personal history of other malignant neoplasm of skin; Z87.19 Personal history of other diseases of the digestive system; Z88.5 Allergy status to narcotic agent; Z88.8 Allergy status to other drugs, medicaments and biological substances; Z79.82 Long term (current) use of aspirin; Z87.891 Personal history of nicotine dependence; Z95.1 Presence of aortocoronary bypass graft; Z98.890 Other specified postprocedural states; Z96.651 Presence of right artificial knee joint; Z96.642 Presence of left artificial hip joint; Z82.49 Family history of ischemic heart disease and other diseases of the circulatory system
CPT/HCPCS: 36415; 74177; 80053; 81000; 85025; 86141

== ENCOUNTER 2018-10-04 09:28 | Outpatient (CLI) | payer MEDICARE ==
[~2018-10-04] VITALS: Ht 165.1 cm; Wt 71.4 kg
[~2018-10-04 09:28] MED LIST changes: +CIPR500T4 PO; +ONDA4TAB11 PO
[2018-10-04] MEDS ORDERED: ZOLEDRONATE (RECLAST) 5 MG/100 ML IV ONE (09:45)
[2018-10-04 10:38] VITALS: BP 136/76
== END 2018-10-04 10:38 | disposition home or self-care (01) ==
LOC: SDC 09:28
PROVIDERS: ATTEND Internal Medicine
DX: M81.0 Age-related osteoporosis without current pathological fracture (principal)
CPT/HCPCS: 96365

== ENCOUNTER 2018-10-21 10:22 | Emergency (ER) | payer MEDICARE ==
[~2018-10-21] VITALS: Ht 162 cm; Wt 78.0 kg
--- NOTE | 2018-10-21 11:06 | ED Integumentary General ---
General Chief Complaint: Skin/Wound Problems Stated Complaint: SKIN CANCER WOUND BLEEDING Nursing Triage Note: PT TO ROOM STATES HAD SKIN CA ON BACK REMOVED YESTERDAY AND CONT TO HAVE BLEEDING, HAS CHANGED DRESSING A FEW TIMES THIS AM Source: patient Exam Limitations: no limitations History of Present Illness Date Seen by Provider: Oct 21, 2018 Time Seen by Provider: 11:04 Initial Comments To ER with a persistently bleeding wound to the left of his thoracic spine and to the right side of his face just anterior to the ear. He had a skin cancer excised yesterday here in [place]. He is on Plavix. He's been unable to control this with direct pressure at home. Timing/Duration: just prior to arrival Severity: moderate Location: face, torso Associated Symptoms: denies symptoms Allergies and Home Medications Allergies Coded Allergies: meperidine (Unverified Allergy, Severe, POSSIBLE RESP ISSUES, 01/07/18) metoclopramide (Unverified Allergy, Mild, SEVERE N/V, 01/07/18) Home Medications Aspirin 81 Mg Tab.chew, 81 MG PO HS, (Reported) MAY RESUME 01/16/18 Ciprofloxacin HCl 500 Mg Tablet, 500 MG PO BID Prescribed by: MIGUE MARX on 09/27/18 2235 Cyanocobalamin (Vitamin B-12) 1,000 Mcg Tablet, 1,000 MCG PO HS, (Reported) Doxazosin Mesylate 4 Mg Tablet, 2 MG PO HS, (Reported) TAKES 1/2 (4MG) TABLET Fish Oil/Dha/Epa 1 Each Capsule, 1,200 MG PO HS, (Reported) MAY RESUME 01/16/18 Hydrocodone Bit/Acetaminophen 1 Tab Tab, 1-2 EACH PO Q6H PRN for PAIN-MODERATE Prescribed by: MIGUE MARX on 06/20/18 1322 Hydrocodone/Acetaminophen 1 Each Tablet, 1 TAB PO Q6H PRN for PAIN-MODERATE Prescribed by: AHMET BARNES on 01/13/18 0515 Hydrocodone/Acetaminophen 1 Each Tablet, 1 EACH PO Q6H PRN for PAIN-MODERATE Prescribed by: TROY ARAUJO on 01/13/18 1035 Lisinopril 20 Mg Tablet, 20 MG PO HS, (Reported) Metoprolol Succinate 25 Mg Tab.er.24h, 25 MG PO DAILY Prescribed by: TROY ARAUJO on 01/13/18 1231 Metronidazole 500 Mg Tablet, 500 MG PO TIDWM Prescribed by: MIGUE MARX on 09/27/18 2235 Multivit-Min/FA/Lycopen/Lutein 1 Each Tablet, 1 TAB PO HS, (Reported) Ondansetron 4 Mg Tab.rapdis, 4 MG PO Q6H PRN for NAUSEA/VOMITING Prescribed by: MIGUE MARX on 09/27/182234 Pravastatin Sodium 40 Mg Tablet, 40 MG PO HS, (Reported) Ubidecarenone 100 Mg Capsule, 100 MG PO HS, (Reported) MAY RESUME 01/16/18 Patient Home Medication List Home Medication List Reviewed: Yes Review of Systems Review of Systems Constitutional: see HPI EENTM: see HPI Respiratory: no symptoms reported Cardiovascular: no symptoms reported Genitourinary: no symptoms reported Musculoskeletal: no symptoms reported Skin: see HPI Psychiatric/Neurological: No Symptoms Reported Endocrine: No Symptoms Reported Past Jvuabew-Wepjjn-Jafhew Hx Patient Social History Alcohol Use: Denies Use Recreational Drug Use: No Smoking Status: Never a Smoker Type Used: Cigars Recent Foreign Travel: No Contact w/Someone Who Travel: No Recent Infectious Disease Expo: No Recent Hopitalizations: No Immunizations Up To Date Date of Pneumonia Vaccine: Nov 19, 2015 Date of Influenza Vaccine: Nov 16, 2017 Seasonal Allergies Seasonal Allergies: No Past Medical History Surgeries: Yes (CABG,HERNIA X4, R TKR, cyst removed in stomach, Left hip replaced x2,) CABG, Coronary Stent, Joint Replacement, Orthopedic, Prostatectomy Respiratory: No Cardiac: Yes ([place] 2011, BY PASS 2011) Coronary Artery Disease, Heart Attack, Hypertension Neurological: No Reproductive Disorders: No Sexually Transmitted Disease: No HIV/AIDS: No Genitourinary: No Gastrointestinal: Yes Abdominal Hernia, Chronic Constipation, Diverticulosis Musculoskeletal: Yes Arthritis, Rheumatoid Arthritis, Chronic Back Pain Endocrine: No HEENT: Yes Cataract Loss of Vision: Bilateral Hearing Impairment: Denies Cancer: Yes (PROSTATE CA) Skin What Type of Treatment Did You: Surgical Intervention Psychosocial: No Integumentary: Yes (SKIN CA BURNED OFF RECENTLY) Blood Disorders: No Adverse Reaction/Blood Tranf: No (HAS HAD BLOOD WITH NO REACTION) Family Medical History Hypertension Physical Exam Vital Signs Vital Signs - First Documented 10/21/18 10:46 Temp 36.7 Pulse 81 Resp 18 B/P (MAP) 109/78 (88) Pulse Ox 96 Capillary Refill : Less Than 3 Seconds General Appearance: WD/WN, no apparent distress HEENT: PERRL/EOMI, normal ENT inspection, other (there is a superficial wound just anterior to the right ear with oozing of blood. This was easily controlled with silver nitrate.) Neck: non-tender, full range of motion Respiratory: no respiratory distress, no accessory muscle use Neurologic/Psychiatric: alert, normal mood/affect, oriented x 3 Skin: normal color, warm/dry Skin Problem Location: torso Skin Problem Character: other (there is a 1 cm circular area to the left of the thoracic spine with active oozing of blood again easily controlled with application of silver nitrate) Progress/Results/Core Measures Results/Orders Vital Signs/I&O 10/21/18 10:46 Temp 36.7 Pulse 81 Resp 18 B/P (MAP) 109/78 (88) Pulse Ox 96 2 Blood Pressure Mean: 88 Departure Impression Primary Impression: Bleeding from wound Disposition: 01 HOME, SELF-CARE Condition: Stable Departure-Patient Inst. Decision time for Depature: 11:05 Referrals: ATUL JEFFREY DO (PCP/Family) Primary Care Physician Patient Instructions: Wound Care (DC) Add. Discharge Instructions: 1. Return to ER for any concerns 2. Follow-up with your doctor next week 3. All discharge instructions reviewed with patient and/or family. Voiced understanding. SILVIA OMER APRN Oct 21, 2018 11:06
[2018-10-21 11:10] VITALS: BP 109/78
== END 2018-10-21 11:10 | disposition home or self-care (01) ==
LOC: EDUNIT# 10:22 → ER 10:23
DX: L76.22 Postprocedural hemorrhage of skin and subcutaneous tissue following other procedure (principal); I10 Essential (primary) hypertension; I25.10 Atherosclerotic heart disease of native coronary artery without angina pectoris; I25.2 Old myocardial infarction; M06.9 Rheumatoid arthritis, unspecified; Z95.5 Presence of coronary angioplasty implant and graft; Z95.1 Presence of aortocoronary bypass graft; Z96.642 Presence of left artificial hip joint; Z85.828 Personal history of other malignant neoplasm of skin; Z79.02 Long term (current) use of antithrombotics/antiplatelets; Z88.5 Allergy status to narcotic agent; Z88.8 Allergy status to other drugs, medicaments and biological substances; Z82.49 Family history of ischemic heart disease and other diseases of the circulatory system; Z79.82 Long term (current) use of aspirin

== ENCOUNTER 2018-11-28 08:41 | Emergency (ER) | payer MEDICARE ==
[~2018-11-28] VITALS: Ht 162.5 cm; Wt 70.6 kg
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
[2018-11-28] MEDS ORDERED: THROMBIN 5,000 UNIT (RECOTHROM) VIAL TOP ONE (09:30)
[2018-11-28 10:30] VITALS: BP 141/80
== END 2018-11-28 10:30 | disposition home or self-care (01) ==
LOC: EDUNIT# 08:41 → ER 08:43
DX: L76.21 Postprocedural hemorrhage of skin and subcutaneous tissue following a dermatologic procedure (principal); I10 Essential (primary) hypertension; I25.2 Old myocardial infarction; I25.10 Atherosclerotic heart disease of native coronary artery without angina pectoris; M06.9 Rheumatoid arthritis, unspecified; Z85.828 Personal history of other malignant neoplasm of skin; Z96.651 Presence of right artificial knee joint; Z96.642 Presence of left artificial hip joint; Z95.1 Presence of aortocoronary bypass graft; Z95.5 Presence of coronary angioplasty implant and graft; Z88.5 Allergy status to narcotic agent; Z88.8 Allergy status to other drugs, medicaments and biological substances; Z79.82 Long term (current) use of aspirin; Z82.49 Family history of ischemic heart disease and other diseases of the circulatory system

== ENCOUNTER → 2019-09-06 | Outpatient (CLI) | payer MEDICARE ==
[~2019-09-06] MED LIST changes: -HYDR-3812 PO
--- NOTE | 2019-09-06 16:34 | Diagnostic Imaging Report ---
EXAMINATION: Nuclear Medicine parathyroid scan. INDICATION: Hypercalcemia. TECHNIQUE: This study was performed following the administration of 21.6 mCi of sestamibi. Images of the face, neck, and upper thorax were obtained at 20 minutes and 2 hours post injection. SPECT images in the axial, coronal, and sagittal planes were obtained. COMPARISON: There are no prior parathyroid studies available for comparison. FINDINGS: There is an area of increased uptake along the anterior aspect of the vertebral body of T1 just to the right of midline. This location would be unusual for a parathyroid adenoma. If further imaging is desired, then CT of the chest would be recommended. There is no other abnormal uptake to suggest a parathyroid adenoma. The CT abdomen/pelvis exam of 09/27/2018 did show that the left hemidiaphragm was elevated. That finding is again evident on this study. There appears to be some compressive atelectasis/infiltrate in the left lung base near the elevated left hemidiaphragm. This may well be chronic in nature; however, clinical followup regarding mild acute pneumonia/atelectasis would be recommended. IMPRESSION: 1. There is increased activity along the anterior aspect of the T1 vertebral body on the right. This is unlikely to represent a parathyroid adenoma. If further imaging is desired, then a CT chest would be recommended. 2. There is no other abnormal uptake to indicate a parathyroid adenoma. 3. There is elevation of the left hemidiaphragm. The abnormal density near the interface of the diaphragm in the lung may be chronic and due to chronic atelectasis alone; however, if there is clinical concern regarding pneumonia/atelectasis in this area, then a followup PA and lateral chest exam should be obtained. Dictated by: Dictated on workstation # [id number]
== END ==
LOC: CARD 11:55
PROVIDERS: ATTEND Internal Medicine
DX: E83.52 Hypercalcemia (principal)
CPT/HCPCS: 78072; A9500

== ENCOUNTER 2021-06-17 07:33 | Emergency (ER) | payer MEDICARE ==
[~2021-06-17] VITALS: Ht 167 cm; Wt 64.0 kg
[~2021-06-17 07:33] MED LIST changes: -CIPR500T4 PO; +CIPR500T5 PO; +CLOP75TA28 PO; +DOCU100T7 PO; -LISI-552 PO; -LISI10TA2 PO; +LISI10TA25 PO; +LISI20TA26 PO; +OXYC1TAB87 PO; +TETR15DR73 OU
[2021-06-17] MEDS ORDERED: HYDROcodone/APAP 7.5 MG/325 MG (LORTAB, LORCET PLUS) TABLET PO ONE (08:15)
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
--- NOTE | 2021-06-17 08:51 | Diagnostic Imaging Report ---
INDICATION: Back pain AP and lateral views of the thoracic spine are obtained. There is generalized osteopenia. There is diffuse degenerative change throughout the thoracic spine with disc space narrowing and osteophyte formation at all levels. There is no overt acute compression deformity. 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 Dictated by: Dictated on workstation # [id number]
[2021-06-17] MEDS ORDERED: methylPREDNISolone 125 MG (Solu-MEDROL) VIAL IM ONE (10:45)
[2021-06-17] MEDS ORDERED: PRD20T PO (10:48)
[2021-06-17] MEDS ORDERED: CYCL10TA25 PO (10:48)
[2021-06-17 11:10] VITALS: BP 166/82
== END 2021-06-17 11:10 | disposition home or self-care (01) ==
LOC: EDUNIT# 07:33 → ER 07:35
DX: M54.14 Radiculopathy, thoracic region (principal); Z98.890 Other specified postprocedural states
CPT/HCPCS: 72072

== ENCOUNTER 2022-01-04 10:01 | Inpatient (IN) | payer MEDICARE ==
[~2022-01-04] VITALS: Ht 165 cm; Wt 61.0 kg
[~2022-01-04 10:01] MED LIST changes: +CYCL10TA25 PO; +PRD20T PO
[2022-01-04 10:41] LABS: BASOPHILS % (AUTO) 0 % (0-10)
[2022-01-04 10:43] LABS: EOSINOPHILS % (AUTO) 0 % (0-10); HEMATOCRIT 37 % (40-54); HEMOGLOBIN 12.4 g/dL (13.3-17.7); LYMPHOCYTES % (AUTO) 19 % (12-44); MEAN CORPUSCULAR HEMOGLOBIN 30 pg (25-34); MEAN CORPUSCULAR HGB CONC 33 g/dL (32-36); MEAN CORPUSCULAR VOLUME 90 fL (80-99); MEAN PLATELET VOLUME 12.1 fL (9.0-12.2); MONOCYTES # (AUTO) 0.6 10^3/uL (0.0-1.0); MONOCYTES % (AUTO) 12 % (0-12); NEUTROPHILS # (AUTO) 3.3 10^3/uL (1.8-7.8); NEUTROPHILS % (AUTO) 67 % (42-75); WHITE BLOOD COUNT 4.9 10^3/uL (4.3-11.0)
[2022-01-04 10:54] LABS: PROTHROMBIN TIME PATIENT 13.7 SEC (12.2-14.7)
[2022-01-04 11:01] LABS: BILIRUBIN,TOTAL 1.1 MG/DL (0.1-1.0); CALCIUM 11.3 MG/DL (8.5-10.1); CREATININE SERUM 1.03 MG/DL (0.60-1.30); MAGNESIUM 1.8 MG/DL (1.6-2.4); POTASSIUM 3.9 MMOL/L (3.6-5.0); TOTAL PROTEIN 7.1 GM/DL (6.4-8.2)
[2022-01-04 11:04] LABS: PLATELET COUNT 88 10^3/uL (130-400); SMEAR SCAN COMMENT YES
--- NOTE | 2022-01-04 11:12 | Diagnostic Imaging Report ---
EXAMINATION: Chest 1 view HISTORY: Chest pain COMPARISON: None available. FINDINGS: Heart size and pulmonary vasculature are normal. Surgical changes from CABG. Left-sided cardiac device is present. Elevation of left hemidiaphragm. There are mild bibasilar interstitial opacities. No pleural effusion or pneumothorax. Degenerative changes of the thoracic spine. Osseous structures are otherwise intact. IMPRESSION: 1. Interstitial opacities in the lung bases which may represent atelectasis although pulmonary edema/atypical infection could have a similar appearance. Dictated by: Dictated on workstation # [id number]
--- NOTE | 2022-01-04 11:18 | Diagnostic Imaging Report ---
EXAMINATION: Left hip radiograph EXAM DATE: 01/04/2022 10:55 AM COMPARISON: 02/07/2014 HISTORY: Left hip pain TECHNIQUE: 3 views FINDINGS: There is no acute fracture, dislocation, or destructive osseous process. Surgical changes from total left hip arthroplasty. Evidence of prosthetic loosening or adjacent cortical fracture. The soft tissues are normal. IMPRESSION: 1. Surgical changes of the left hip without acute osseous abnormality. Dictated by: Dictated on workstation # [id number]
--- NOTE | 2022-01-04 11:50 | Diagnostic Imaging Report ---
HISTORY: Left knee pain, fall. COMPARISON: None. TECHNIQUE: 3 views of the left knee FINDINGS: No acute fracture is seen in the left knee. Alignment appears normal. There are severe degenerative changes in the medial and patellofemoral compartments and moderate degenerative change in the lateral compartment. There is moderate chondrocalcinosis. Small joint bodies are seen posteriorly. There is calcific atherosclerosis. There is a small left knee joint effusion. Intramedullary hardware is partially seen at the distal femur. IMPRESSION: 1. 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 2. Small left knee joint effusion. Dictated by: Dictated on workstation # [id number]
[2022-01-04] MEDS ORDERED: morphine INJ 10 MG/ML 1ML (SYR OR VIAL) IVP STA (12:04)
[2022-01-04] MEDS ORDERED: ASPIRIN 81 MG CHEW (CHILDREN'S ASA) PO ONE (12:15)
--- NOTE | 2022-01-04 12:55 | ED General ---
General Chief Complaint: Chest Pain Stated Complaint: MULTIPLE FALLS/LEFT HIP PAIN Nursing Triage Note: PT TO RM 2 PER W/C PT HAS FALLEN A FEW TIMES OVER PAST COUPLE WEEKS, CO OF L HIP PAIN AND HAS BRUISE ON R UPPER BACK. WHEN ASK PT WHERE HE HURTS HE CO OF L CHEST PAIN 09/18. PT HAS INCREASED WEAKNESS. STATES NOT TAKING FLUIDS VERY WELL. Source of Information: Patient Exam Limitations: No Limitations (PAIGE GU APRN) History of Present Illness Date Seen by Provider: Jan 04, 2022 Time Seen by Provider: 11:15 Initial Comments Patient is a an 81-year-old male who presents to the emergency department for evaluation of left hip and left knee pain that have been present since yesterday. He presents with his daughter. Daughter states patient had a mechanical fall 2 weeks ago but seemed to have very minimal injury at that time. He did have a very mild limp in his left leg but was able to go to physical therapy and seemed to be coping well. Yesterday he began having increased left knee pain and family had difficulty moving the patient. They present here for further evaluation. Patient also endorsed some substernal chest pain upon arrival. Daughter was unaware the patient was having chest pain. He states he is not having any significant shortness of air. Patient does have an extensive cardiac history (PAIGE GU APRN) Allergies and Home Medications Allergies Coded Allergies: meperidine (Unverified Allergy, Severe, POSSIBLE RESP ISSUES, 01/07/18) metoclopramide (Unverified Allergy, Mild, SEVERE N/V, 01/07/18) Patient Home Medication List Home Medication List Reviewed: Yes (PAIGE GU APRN) Clopidogrel Bisulfate (Clopidogrel) 75 Mg Tablet, 75 MG PO HS, (Reported) Entered as Reported by: PRINCESS WHITMAN on 10/18/19 155 Last Action: Reviewed Docusate Sodium (Stool Softener) 100 Mg Tablet, 200 MG PO HS, (Reported) Entered as Reported by: PRINCESS WHITMAN on 10/18/19 155 Last Action: Reviewed Doxazosin Mesylate (Doxazosin Mesylate) 4 Mg Tablet, 4 MG PO HS, (Reported) Entered as Reported by: PRINCESS WHITMAN on 10/18/19 1621 Last Action: Reviewed Hydroxychloroquine Sulfate (Hydroxychloroquine Sulfate) 200 Mg Tablet, 200 MG PO HS, (Reported) Entered as Reported by: PRINCESS WHITMAN on 10/18/19 1556 Last Action: Reviewed Lisinopril (Lisinopril) 20 Mg Tablet, 10 MG PO HS Prescribed by: GONSALO BARBER on 01/04/22 1636 Last Action: New Order Multivit-Min/FA/Lycopen/Lutein (Centrum Silver Men Tablet) 1 Each Tablet, 1 TAB PO HS, (Reported) Entered as Reported by: SHAHRZAD ROOT on 01/07/18 1030 Last Action: Reviewed Pravastatin Sodium (Pravastatin Sodium) 40 Mg Tablet, 40 MG PO HS, (Reported) Entered as Reported by: СВЕТЛАНА PAGE on 07/25/16 0823 Last Action: Reviewed Discontinued Medications Cyclobenzaprine HCl (Cyclobenzaprine HCl) 10 Mg Tablet, 5-10 MG PO Q8H PRN for SPASMS Discontinued Reason: No Longer Taking Prescribed by: MIGUE MARX on 06/17/21 1048 Last Action: Discontinued Oxycodone HCl/Acetaminophen (Percocet 5-325 mg Tablet) 1 Each Tablet, 1 TAB PO Q6H PRN for PAIN-MODERATE (5-7) Discontinued Reason: No Longer Taking Prescribed by: DANIEL ALEXANDRE on 10/19/19 1544 Last Action: Discontinued Prednisone (Prednisone) 20 Mg Tab, 40 MG PO DAILY Discontinued Reason: No Longer Taking Prescribed by: MIGUE MARX on 06/17/21 1048 Last Action: Discontinued Tetrahydrozoline HCl/Zn Sulf (Visine Allergy Relief Drop) 15 Ml Drops, 2 DROPS OU PRN PRN for EYE ITCH, (Reported) Discontinued Reason: No Longer Taking Entered as Reported by: PRINCESS WHITMAN on 10/18/19 1556 Last Action: Discontinued Review of Systems Review of Systems Constitutional: no symptoms reported EENTM: no symptoms reported Respiratory: no symptoms reported Cardiovascular: see HPI, chest pain Gastrointestinal: no symptoms reported Genitourinary: no symptoms reported Musculoskeletal: no symptoms reported Skin: no symptoms reported Psychiatric/Neurological: No Symptoms Reported Hematologic/Lymphatic: No Symptoms Reported Immunological/Allergic: no symptoms reported (PAIGE GU APRN) Past Jkywmqh-Thwkzm-Lhlgyn Hx Patient Social History Tobacco Use?: No Substance use?: No Alcohol Use?: No Pt feels they are or have been: No (PAIGE GU APRN) Immunizations Up To Date First/Initial COVID19 Vaccinat: 2020 Second COVID19 Vaccination Isael: 2020 Third COVID19 Vaccination Date: 2020 (PAIGE GU APRN) Seasonal Allergies Seasonal Allergies: No (PAIGE GU APRN) Past Medical History Surgery/Hospitalization HX: PACEMAKER, AORTIC VALVE REPAIR, CABG,STENTS, PROSTATE, BACK X2, NECK, R TKR, BRAIN TUMOR Surgeries: Yes (CABG,HERNIA X4, R TKR, cyst removed in stomach, Left hip replaced x2,) CABG, Coronary Stent, Joint Replacement, Orthopedic, Prostatectomy Respiratory: No Cardiac: Yes ([place] 2011, [place] [facility] 2011) Coronary Artery Disease, Heart Attack, High Cholesterol, Hypertension Neurological: No Reproductive Disorders: No Sexually Transmitted Disease: No HIV/AIDS: No Genitourinary: No Gastrointestinal: Yes Abdominal Hernia, Chronic Constipation, Diverticulosis Musculoskeletal: Yes Arthritis, Rheumatoid Arthritis, Chronic Back Pain Endocrine: No HEENT: Yes Cataract Loss of Vision: Bilateral Hearing Impairment: Denies Cancer: Yes Prostate, Skin What Type of Treatment Did You: Surgical Intervention Psychosocial: No Integumentary: Yes (SKIN CA BURNED OFF RECENTLY) Blood Disorders: No Adverse Reaction/Blood Tranf: No (PAIGE GU APRN) Family Medical History No Pertinent Family Hx, Hypertension (PAIGE GU APRN) Physical Exam Vital Signs Vital Signs - First Documented 01/04/22 10:10 Temp 36.9 Pulse 68 Resp 18 B/P (MAP) 117/66 (83) Pulse Ox 98 (MOISES FERNANDEZ MD) Vital Signs Capillary Refill : Less Than 3 Seconds (PAIGE GU APRN) Height, Weight, BMI Height: 5'5.00" Weight: 157lbs. 7.0oz. 71.255918si; 23.00 BMI Method:Stated General Appearance: No Apparent Distress, WD/WN HEENT: PERRL/EOMI, TMs Normal, Normal ENT Inspection, Pharynx Normal Neck: Normal Inspection, Non Tender, Supple Respiratory: Chest Non Tender, Lungs Clear, Normal Breath Sounds, No Accessory Muscle Use, No Respiratory Distress Cardiovascular: Regular Rate, Rhythm Gastrointestinal: Non Tender, Soft Extremity: Normal Capillary Refill, Normal Inspection, Normal Range of Motion, Non Tender, No Calf Tenderness Neurologic/Psychiatric: Alert, Oriented x3, No Motor/Sensory Deficits, Normal Mood/Affect Skin: Normal Color, Warm/Dry (PAIGE GU APRN) Progress/Results/Core Measures Suspected Sepsis SIRS Temperature: Pulse: 68 Respiratory Rate: 18 Laboratory Tests 01/04/22 10:37: White Blood Count 4.9 Blood Pressure 117 /66 Mean: 83 Laboratory Tests 01/04/22 10:37: Creatinine 1.03, INR Comment 1.0, Platelet Count 88L, Total Bilirubin 1.1H (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) Results/Orders Lab Results Laboratory Tests Test 01/04/22 10:37 Range/Units White Blood Count 4.9 4.3-11.0 10^3/uL Red Blood Count 4.15 L 4.30-5.52 10^6/uL Hemoglobin 12.4 L 13.3-17.7 g/dL Hematocrit 37 L 40-54 % Mean Corpuscular Volume 90 80-99 fL Mean Corpuscular Hemoglobin 30 25-34 pg Mean Corpuscular Hemoglobin Concent 33 32-36 g/dL Red Cell Distribution Width 12.9 10.0-14.5 % Platelet Count 88 L 130-400 10^3/uL Mean Platelet Volume 12.1 9.0-12.2 fL Immature Granulocyte % (Auto) 1 % Neutrophils (%) (Auto) 67 42-75 % Lymphocytes (%) (Auto) 19 12-44 % Monocytes (%) (Auto) 12 0-12 % Eosinophils (%) (Auto) 0 0-10 % Basophils (%) (Auto) 0 0-10 % Neutrophils # (Auto) 3.3 1.8-7.8 10^3/uL Lymphocytes # (Auto) 1.0 1.0-4.0 10^3/uL Monocytes # (Auto) 0.6 0.0-1.0 10^3/uL Eosinophils # (Auto) 0.0 0.0-0.3 10^3/uL Basophils # (Auto) 0.0 0.0-0.1 10^3/uL Immature Granulocyte # (Auto) 0.1 0.0-0.1 10^3/uL Percent Immature Platelet Fraction 13.1 H 0.0-7.6 % Prothrombin Time 13.7 12.2-14.7 SEC INR Comment 1.0 0.8-1.4 Activated Partial Thromboplast Time 28 24-35 SEC Sodium Level 141 135-145 MMOL/L Potassium Level 3.9 3.6-5.0 MMOL/L Chloride Level 108 H 98-107 MMOL/L Carbon Dioxide Level 21 21-32 MMOL/L Anion Gap 12 5-14 MMOL/L Blood Urea Nitrogen 23 H 7-18 MG/DL Creatinine 1.03 0.60-1.30 MG/DL Estimat Glomerular Filtration Rate 73 BUN/Creatinine Ratio 22 Glucose Level 112 H 70-105 MG/DL Calcium Level 11.3 H 8.5-10.1 MG/DL Corrected Calcium 11.3 H 8.5-10.1 MG/DL Magnesium Level 1.8 1.6-2.4 MG/DL Total Bilirubin 1.1 H 0.1-1.0 MG/DL Aspartate Amino Transf (AST/SGOT) 17 5-34 U/L Alanine Aminotransferase (ALT/SGPT) 9 0-55 U/L Alkaline Phosphatase 91 40-136 U/L Myoglobin 96.4 H 10.0-92.0 NG/ML Troponin I 0.174 H <0.028 NG/ML Total Protein 7.1 6.4-8.2 GM/DL Albumin 4.0 3.2-4.5 GM/DL Smear Scan YES (MOISES FERNANDEZ MD) My Orders Orders - MOISES FERNANDEZ MD Ekg Tracing (01/04/22 10:26) Cbc With Automated Diff (01/04/22 10:33) Magnesium (01/04/22 10:33) Chest 1 View, Ap/Pa Only (01/04/22 10:33) Comprehensive Metabolic Panel (01/04/22 10:33) Myoglobin Serum (01/04/22 10:33) Protime With Inr (01/04/22 10:33) Partial Thromboplastin Time (01/04/22 10:33) O2 (01/04/22 10:33) Monitor-Rhythm Ecg Trace Only (01/04/22 10:33) Lipid Panel (01/05/22 06:00) Ed Iv/Invasive Line Start (01/04/22 10:33) Troponin I Jory (01/04/22 10:33) Hip, Left, 2 Views (01/04/22 10:33) (MOISES FERNANDEZ MD) Medications Given in ED Current Medications Medications Dose Ordered Sig/Chi Route Start Time Stop Time Status Last Admin Dose Admin Aspirin 324 mg ONCE ONCE PO 01/04/22 12:15 01/04/22 12:16 DC 01/04/22 12:25 324 MG (MOISES FERNANDEZ MD) Vital Signs/I&O 01/04/22 10:10 Temp 36.9 Pulse 68 Resp 18 B/P (MAP) 117/66 (83) Pulse Ox 98 (MOISES FERNANDEZ MD) Vital Signs/I&O Capillary Refill : Less Than 3 Seconds (PAIGE GU APRN) Blood Pressure Mean: 83 Progress Note : Progress Note Patient is nontoxic and well-hydrated on exam. He does endorse left knee and hip pain but there is no particular tenderness to palpation in either area. No significant provocation of pain with passive range of motion of the left knee or left hip. He denies any chest pain upon my arrival to the room but when he arrived approximately 1 hour ago he endorsed severe chest pain to the nursing staff. EKG without acute ischemic change or arrhythmia. X-rays of the left hip and left knee are acutely negative although degenerative changes are noted. Laboratory evaluation is notable for an elevated troponin of uncertain clinical significance. Due to his extensive cardiac history, will admit for further evaluation and treatment. I spoke with cardiology who agreed to see the patient in consultation. The hospitalist kindly agreed to admit the patient. Patient and daughter updated on plan of care and understanding verbalized. (PAIGE GU APRN) ECG EKG : EKG Time: 10:31 Rate: 70 Rhythm: Normal Sinus ECG Impression: Nonspecific Changes (PAIGE GU APRN) Consults Consults : Consulting Physician: AKBAR MAGDALENO MD FACP FACC CCDS Consults Notes Recommended Toprol-XL, Plavix, aspirin, and DVT prophylaxis; agreed to see in consultation (PAIGE GU APRN) Departure Communication (Admissions) Time/Spoke to Admitting Phy: 12:50 Discussed recommendations given by cardiology; kindly agreed to admit (PAIGE GU APRN) Impression Primary Impression: NSTEMI (non-ST elevation myocardial infarction) Additional Impression: Left knee pain Qualified Codes: M25.562 - Pain in left knee Disposition: ADMITTED INPATIENT Condition: Stable Admissions Decision to Admit Reason: Admit from ER (General) Decision to Admit/Date: Jan 04, 2022 Time/Decision to Admit Time: 12:30 (PAIGE GU APRN) Departure-Patient Inst. Referrals: ATUL JEFFREY DO (PCP/Family) Primary Care Physician Scripts Lisinopril (Lisinopril) 20 Mg Tablet 10 MG PO HS for 30 Days, #30 TAB Prov: ODIN ALFRED MD 01/04/22 ATTENDING PHYSICIAN NOTE: I was physically present as attending physician in the emergency department during the care of this patient. I placed initial orders based off of chief complaint and nursing triage report. I was not otherwise directly involved in the decision making or delivery of care for this patient. I did not personally interview or examine this patient. (MOISES FERNANDEZ MD) PAIGE GU APRN Jan 04, 2022 12:55 MOISES FERNANDEZ MD Jan 04, 2022 21:39
[2022-01-04] MEDS ORDERED: CLOPIDOGREL 75 MG (PLAVIX) TABLET PO ONE (13:15)
[2022-01-04] MEDS ORDERED: ONDANSETRON 4 MG/2 ML (SDV) Z0FRAN IV PRN (14:45)
[2022-01-04] MEDS ORDERED: CALCIUM CARBONATE 500 MG (TUMS) TAB.CHEW PO PRN (14:45)
[2022-01-04] MEDS ORDERED: MILK OF MAGNESIA 400 MG/5 ML 30 ML UDC PO PRN (14:45)
[2022-01-04] MEDS ORDERED: CYCLOBENZAPRINE 10 MG (FLEXERIL) TAB PO PRN (14:45)
[2022-01-04] MEDS ORDERED: NS IV 500 ML 500 ML IV PRN (14:45)
[2022-01-04] MEDS ORDERED: polyethylene glycoL POWDER 17 GM (MIRALAX) PACK PO PRN (14:45)
[2022-01-04] MEDS ORDERED: ANTACID SUSP 30 ML UDC (MYLANTA) PO PRN (14:45)
[2022-01-04] MEDS ORDERED: LACTULOSE SYRUP 10GM/15ML (ENULOSE) 30ML UDC PO PRN (14:45)
[2022-01-04] MEDS ORDERED: ONDANSETRON 4 MG (ZOFRAN) ORAL DISSOLVE TAB PO PRN (14:45)
[2022-01-04] MEDS ORDERED: BISACODYL 10 MG SUPP (DULCOLAX) PR PRN (14:45)
[2022-01-04 16:00] VITALS: BP 143/106
[2022-01-04] MEDS: ENOXAPARIN 40 MG/0.4 ML (LOVENOX) SYR SC SCH (16:19)
--- NOTE | 2022-01-04 16:34 | Consultation-Cardiology ---
HPI-Cardiology Cardiology Consultation: Date of Consultation 01/04/22 Time Seen by a Provider: 15:15 Date of Admission Attending Physician Cyrus Valles DO Admitting Physician Admitting Physician: Yaa Oseguera MD Attending Physician: Yaa Oseguera MD Consulting Physician AKBAR MAGDALENO MD, MA, FACP, FACC, FSCAI, CCDS Physician requesting consult: Dr Oseguera HPI: Chief Complaint: Reason for Card consult: Elevated troponin 81 yo man admitted through ER today with L hip and L knee and back pain that limits activity and that has become worse after recent nonsyncopal fall. He has poor ambulatory status at home and has felt incapable of taking care of him. He also reported cp earlier today: L and R parasternal, mod in intensity, sharp to dull, nonradiating, not associated with other symptoms, w/o aggravating or relieving factors, self resolving, not experience before. He feels well at time of my exam. Does not report shortness of breath but activity is limited because of reasons noted above. Denies n/v/d. Denies palp or syncope or shortness of breath Review of Systems-Cardiology Review of Systems Constitutional: No malaise; tiredness; No weight loss, No weight gain Eyes: No vision change Ears/Nose/Throat: chronic hearing loss; No ear discharge, No nasal drainage, No recent hearing loss Respiratory: As described under HPI Cardiovascular: As described under HPI Gastrointestinal: As described under HPI Genitourinary: No dysuria, No hematuria Musculoskeletal: As describe under HPI Skin: No rash, No ulcerations Psychiatric/Neurological: No seizure, No focal weakness, No syncope Hematologic: No bleeding abnormalities MIK-Vszydv-Phejsj Hx Patient Social History Have you traveled recently?: No Alcohol Use?: No Substance type: Caffeine Pt feels they are or have been: No Immunizations Up To Date Date of Pneumonia Vaccine: Nov 19, 2015 Date of Influenza Vaccine: Nov 16, 2017 Past Medical History PMH As described under Assessment. Family Medical History Family Medical History: He does not report fam h/o early CAD or SCD Allergies and Home Medications Allergies Coded Allergies: meperidine (Unverified Allergy, Severe, POSSIBLE RESP ISSUES, 01/07/18) metoclopramide (Unverified Allergy, Mild, SEVERE N/V, 01/07/18) Patient Home Medication List Home Medication List Reviewed: Yes Clopidogrel Bisulfate (Clopidogrel) 75 Mg Tablet, 75 MG PO HS, (Reported) Entered as Reported by: PRINCESS WHITMAN on 10/18/19 1556 Cyclobenzaprine HCl (Cyclobenzaprine HCl) 10 Mg Tablet, 5-10 MG PO Q8H PRN for SPASMS Prescribed by: MIGUE MARX on 06/17/21 1048 Docusate Sodium (Stool Softener) 100 Mg Tablet, 200 MG PO HS, (Reported) Entered as Reported by: PRINCESS WHITMAN on 10/18/19 1556 Doxazosin Mesylate (Doxazosin Mesylate) 4 Mg Tablet, 4 MG PO HS, (Reported) Entered as Reported by: PRINCESS WHITMAN on 10/18/19 1621 Hydroxychloroquine Sulfate (Hydroxychloroquine Sulfate) 200 Mg Tablet, 200 MG PO HS, (Reported) Entered as Reported by: PRINCESS WHITMAN on 10/18/19 1556 Lisinopril (Lisinopril) 20 Mg Tablet, 20 MG PO HS, (Reported) Entered as Reported by: SHAHRZAD ROOT on 01/07/18 1030 Multivit-Min/FA/Lycopen/Lutein (Centrum Silver Men Tablet) 1 Each Tablet, 1 TAB PO HS, (Reported) Entered as Reported by: SHAHRZAD ROOT on 01/07/18 1030 Oxycodone HCl/Acetaminophen (Percocet 5-325 mg Tablet) 1 Each Tablet, 1 TAB PO Q6H PRN for PAIN-MODERATE (5-7) Prescribed by: DANIEL ALEXANDRE on 10/19/19 1544 Pravastatin Sodium (Pravastatin Sodium) 40 Mg Tablet, 40 MG PO HS, (Reported) Entered as Reported by: СВЕТЛАНА PAGE on 07/25/16 0823 Prednisone (Prednisone) 20 Mg Tab, 40 MG PO DAILY Prescribed by: MIGUE MARX on 06/17/21 1048 Tetrahydrozoline HCl/Zn Sulf (Visine Allergy Relief Drop) 15 Ml Drops, 2 DROPS OU PRN PRN for EYE ITCH, (Reported) Entered as Reported by: PRINCESS WHITMAN on 10/18/19 1556 Physical Exam-Cardiology Physical Exam Vital Signs/I&O 01/04/22 01/04/22 01/04/22 10:10 14:20 15:26 Temp 36.9 Pulse 68 66 Resp 18 20 B/P (MAP) 117/66 (83) 143/106 Pulse Ox 98 95 97 O2 Delivery Room Air Capillary Refill : Less Than 3 Seconds Constitutional: AAO x 3, well-developed, well-nourished HEENT: hard of hearing, xanthelasmas are seen Neck: carotid pulses are 2 + bilaterally, with good upstrokes Respiratory: No accessory muscle use; other (fair to good, bilat air entry) Cardiovascular: regular rate-rhythm, S1 and S2, systolic murmur (2/6 MSM at card base) Gastrointestinal: No tender; soft; No guarding, No rebound; audible bowel sounds Extremities: No clubbing, No cyanosis, No significant edema Neurologic/Psychiatric: oriented x 3, other (moves all limbs equally) Skin: No rash on exposed areas, No ulcerations on exposed areas Data Review Labs Laboratory Tests 01/04/22 10:37: White Blood Count 4.9, Red Blood Count 4.15L, Hemoglobin 12.4L, Hematocrit 37L, Mean Corpuscular Volume 90, Mean Corpuscular Hemoglobin 30, Mean Corpuscular Hemoglobin Concent 33, Red Cell Distribution Width 12.9, Platelet Count 88L, Mean Platelet Volume 12.1, Immature Granulocyte % (Auto) 1, Neutrophils (%) (Auto) 67, Lymphocytes (%) (Auto) 19, Monocytes (%) (Auto) 12, Eosinophils (%) (Auto) 0, Basophils (%) (Auto) 0, Neutrophils # (Auto) 3.3, Lymphocytes # (Auto) 1.0, Monocytes # (Auto) 0.6, Eosinophils # (Auto) 0.0, Basophils # (Auto) 0.0, Immature Granulocyte # (Auto) 0.1, Percent Immature Platelet Fraction 13.1H, Prothrombin Time 13.7, INR Comment 1.0, Activated Partial Thromboplast Time 28, Sodium Level 141, Potassium Level 3.9, Chloride Level 108H, Carbon Dioxide Level 21, Anion Gap 12, Blood Urea Nitrogen 23H, Creatinine 1.03, Estimat Glomerular Filtration Rate 73, BUN/Creatinine Ratio 22, Glucose Level 112H, Calcium Level 11.3H, Corrected Calcium 11.3H, Magnesium Level 1.8, Total Bilirubin 1.1H, Aspartate Amino Transf (AST/SGOT) 17, Alanine Aminotransferase (ALT/SGPT) 9, Alkaline Phosphatase 91, Myoglobin 96.4H, Troponin I 0.174H, Total Protein 7.1, Albumin 4.0, Smear Scan YES Laboratory Tests 01/04/22 10:37 A/P-Cardiology Assessment/Admission Diagnosis NSTEMI CAD - CABG at [facility] (2011) by Dr Tamez; h/o 3 cor stent prior to CABG and 3 cors stents since surg - reportedly, cor and graft status was stable at time of card cath in April 2021 prior to TAVR TAVR at [facility] in April 2021, apparently for Severe hardness of hearing Chronic joint and back pain that limits ambulation - presentation on 01/04/22 was mainly of L hip and knee pain and poor ambulatory status at home Thrombocytopenia of undetermined etiology Hypertension Hyperlipidemia Discussion and Recomendations * Treat with DAPT and beta-carli and statin * Keep on tele * Held off on enoxaparin because of thrombocytopenia. Hosp svce to manage thrombocytopenia and prophylaxis for DVT * Trying to obtain cardiac records from [facility] * Monitor labs closely Clinical Quality Measures AMI/AHF: ASA po Prior to arrival: AKBAR Howard MD FACP FAC CCDS Jan 04, 2022 16:34
[2022-01-04] MEDS ORDERED: LISI20TA26 PO (16:36)
[2022-01-04] MEDS: HYDROXYCHLOROQUINE 200 MG (PLAQUENIL) TAB PO SCH (17:07)
[2022-01-04] MEDS: NS IV 1000 ML 1,000 ML IV SCH (18:17)
[2022-01-04 20:00] VITALS: BP 172/106
[2022-01-04 20:29] LABS: BILIRUBIN,URINE NEGATIVE (NEGATIVE); CLARITY,URINE CLEAR; COLOR,URINE YELLOW; GLUCOSE, URINE (UA) NEGATIVE (NEGATIVE); KETONES,URINE TRACE (NEGATIVE); LEUKOCYTE ESTERASE ,URINE NEGATIVE (NEGATIVE); NITRITE,URINE NEGATIVE (NEGATIVE); PH,URINE 5.5 (5-9); PROTEIN,URINE TRACE (NEGATIVE)
[2022-01-04 20:38] LABS: BACTERIA,URINE NEGATIVE /HPF
[2022-01-04 20:39] LABS: YEAST,URINE MODERATE /HPF
[2022-01-04] MEDS: doxAzosin 4 MG (CARDURA) TAB PO SCH (20:49)
[2022-01-04] MEDS: lisINopril 20 MG (PRINIVIL) TABLET PO SCH (20:49)
[2022-01-04] MEDS: DOCUSATE SODIUM 100 MG (COLACE) CAP PO SCH (20:49)
[2022-01-04] MEDS: MELATONIN 3 MG TABLET PO PRN (20:49)
[2022-01-04] MEDS: SENNOSIDES 8.6 MG (SENOKOT) TAB PO SCH (20:49)
[2022-01-04] MEDS: ACETAMINOPHEN 325 MG TABLET PO PRN (20:49)
[2022-01-05] VITALS (7 sets, daily range): BP systolic 129–184; BP diastolic 81–103
[2022-01-05] MEDS: meTOproloL SUCCINATE 50 MG (TOPROL XL) TAB PO SCH ×2 (00:07→08:38)
[2022-01-05 03:46] LABS: HEMOGLOBIN 11.6 g/dL (13.3-17.7)
[2022-01-05 03:47] LABS: BASOPHILS % (AUTO) 0 % (0-10); EOSINOPHILS % (AUTO) 1 % (0-10); HEMATOCRIT 35 % (40-54); LYMPHOCYTES % (AUTO) 24 % (12-44); MEAN CORPUSCULAR HEMOGLOBIN 30 pg (25-34); MEAN CORPUSCULAR HGB CONC 33 g/dL (32-36); MEAN CORPUSCULAR VOLUME 89 fL (80-99); MEAN PLATELET VOLUME 12.2 fL (9.0-12.2); MONOCYTES # (AUTO) 0.6 10^3/uL (0.0-1.0); MONOCYTES % (AUTO) 15 % (0-12); NEUTROPHILS # (AUTO) 2.5 10^3/uL (1.8-7.8); NEUTROPHILS % (AUTO) 60 % (42-75); WHITE BLOOD COUNT 4.3 10^3/uL (4.3-11.0)
[2022-01-05 04:09] LABS: CALCIUM 11.1 MG/DL (8.5-10.1); CREATININE SERUM 0.92 MG/DL (0.60-1.30); MAGNESIUM 1.8 MG/DL (1.6-2.4)
[2022-01-05 04:11] LABS: CHOLESTEROL 188 MG/DL (< 200); HDL CHOLESTEROL 46 MG/DL (40-60); TRIGLYCERIDES 118 MG/DL (<150); VLDL CHOLESTEROL 24 MG/DL (5-40)
[2022-01-05 04:39] LABS: PLATELET COUNT 79 10^3/uL (130-400)
[2022-01-05] MEDS: NS IV 1000 ML 1,000 ML IV SCH ×2 (04:51→16:49)
[2022-01-05] MEDS: MAGNESIUM 1 GM/100 ML IVPB 100 ML IV SCH (06:09)
[2022-01-05] MEDS: POTASSIUM CL 10MEQ/50ML IVPB 50 ML IV SCH (06:09)
[2022-01-05] MEDS: KCL 20 MEQ TAB (K-DUR) PO SCH (06:09)
[2022-01-05] MEDS: CLOPIDOGREL 75 MG (PLAVIX) TABLET PO SCH (08:37)
[2022-01-05] MEDS: DOCUSATE SODIUM 100 MG (COLACE) CAP PO SCH ×2 (08:37→20:10)
[2022-01-05] MEDS: HYDROXYCHLOROQUINE 200 MG (PLAQUENIL) TAB PO SCH ×2 (08:38→18:28)
[2022-01-05] MEDS: PANTOPRAZOLE 20 MG TABLET (PROTONIX) PO SCH (08:38)
[2022-01-05] MEDS: SENNOSIDES 8.6 MG (SENOKOT) TAB PO SCH ×2 (08:38→20:10)
[2022-01-05] MEDS: ASPIRIN 81 MG CHEW (CHILDREN'S ASA) PO SCH (08:38)
--- NOTE | 2022-01-05 10:28 | Diagnostic Imaging Report ---
EXAMINATION: CT head without contrast. TECHNIQUE: Multiple contiguous axial images were obtained through the brain without the use of intravenous contrast. All CT scans use one or more of the following dose optimizing techniques: automated exposure control, MA and/or KvP adjustment based on patient size and exam type or iterative reconstruction. HISTORY: Altered mental status, history of stroke COMPARISON: 06/20/2018 FINDINGS: Mild diffuse cerebral volume loss with proportional enlargement of the ventricles and sulci. Mild hypodensities throughout the supratentorial white matter of both cerebral hemispheres. No acute intracranial hemorrhage or abnormal extra-axial fluid collections are present. Calcified extra-axial dural based lesion within the right frontal lobe which likely represents a meningioma given its focal calcification. Calcification of the intracranial ICAs. No hyperdense vessel. The calvarium is intact. The mastoid air cells are clear. Near complete opacification of the right maxillary sinus. The orbits are normal. IMPRESSION: 1. No acute intracranial abnormality. 2. Chronic microangiopathy and volume loss. Dictated by: Dictated on workstation # [id number]
[2022-01-05] MEDS: ACETAMINOPHEN 325 MG TABLET PO PRN ×2 (11:50→20:10)
[2022-01-05] MEDS ORDERED: LIDOCAINE 1% INJ 20 ML VIAL INJ ONE (13:00)
[2022-01-05] MEDS ORDERED: meTOproloL SUCCINATE 50 MG (TOPROL XL) TAB PO ONE (13:30)
--- NOTE | 2022-01-05 14:28 | Progress Note - Cardiology ---
Cardiology SOAP Progress Note Subjective: No cp or palp or syncope or shortness of breath at rest No n/v/d Chronic hip and back pain and limited ambulation because of that No swelling Gen weakness and malaise present Objective: I&O/Vital Signs 01/05/22 01/05/22 01/05/22 01/05/22 04:00 07:00 07:25 08:00 Temp 36.4 Pulse 60 71 Resp 15 B/P (MAP) 167/100 (122) Pulse Ox 94 95 O2 Delivery Room Air Room Air 01/05/22 01/05/22 01/05/22 01/05/22 08:00 11:55 12:00 13:00 Temp 36.2 Pulse 67 60 60 Resp 22 B/P (MAP) 184/103 (130) 166/100 (122) Pulse Ox 95 94 O2 Delivery Room Air Room Air 01/05/22 00:00 Intake Total 150 ml Output Total 50 ml Balance 100 ml Weight (Pounds): 157 Weight (Ounces): 7.0 Weight (Calculated Kilograms): 71.924941 Constitutional: AAO x 3, well-developed, well-nourished Respiratory: No accessory muscle use; other (fair to good, bilat air entry) Cardiovascular: regular rate-rhythm, S1 and S2, systolic murmur (2/6 MSM at card base) Gastrointestional: No tender; soft; No guarding, No rebound; audible bowel sounds Extremities: No clubbing, No cyanosis, No significant edema Neurologic/Psychiatric: oriented x 3, other (moves all limbs equally) Skin: No rash on exposed areas, No ulcerations on exposed areas Results/Procedures: Labs Laboratory Tests 01/04/22 16:55: Troponin I 0.183H 01/04/22 19:42: Urine Color YELLOW, Urine Clarity CLEAR, Urine pH 5.5, Urine Specific [place] >=1.030, Urine Protein TRACEH, Urine Glucose (UA) NEGATIVE, Urine Ketones TRACEH , Urine Nitrite NEGATIVE, Urine Bilirubin NEGATIVE, Urine Urobilinogen 0.2, Ur ine Leukocyte Esterase NEGATIVE, Urine RBC (Auto) NEGATIVE, Urine RBC NONE, Urine WBC NONE, Urine Crystals NONE, Urine Bacteria NEGATIVE, Urine Casts PRESENT, Urine Mucus NEGATIVE, Urine Yeast MODERATEH, Urine Culture Indicated YES 01/04/22 22:36: Troponin I 0.344*H 01/05/22 03:33: White Blood Count 4.3, Red Blood Count 3.91L, Hemoglobin 11.6L, Hematocrit 35L, Mean Corpuscular Volume 89, Mean Corpuscular Hemoglobin 30, Mean Corpuscular Hemoglobin Concent 33, Red Cell Distribution Width 12.8, Platelet Count 79L, Mean Platelet Volume 12.2, Immature Granulocyte % (Auto) 1, Neutrophils (%) (Auto) 60, Lymphocytes (%) (Auto) 24, Monocytes (%) (Auto) 15H, Eosinophils (%) (Auto) 1, Basophils (%) (Auto) 0, Neutrophils # (Auto) 2.5, Lymphocytes # (Auto) 1.0, Monocytes # (Auto) 0.6, Eosinophils # (Auto) 0.0, Basophils # (Auto) 0.0, Immature Granulocyte # (Auto) 0.1, Percent Immature Platelet Fraction 13.7H, Sodium Level 139, Potassium Level 4.0, Chloride Level 111H, Carbon Dioxide Level 18L, Anion Gap 10, Blood Urea Nitrogen 24H, Creatinine 0.92, Estimat Glomerular Filtration Rate 84, BUN/Creatinine Ratio 26, Glucose Level 75, Calcium Level 11.1H, Magnesium Level 1.8, Triglycerides Level 118, Cholesterol Level 188, LDL Cholesterol Direct 121, VLDL Cholesterol 24, HDL Cholesterol 46 Laboratory Tests 01/04/22 10:37 Laboratory Tests 01/04/22 10:37 01/05/22 03:33 A/P: Assessment: NSTEMI CAD - CABG at [facility] (2011) by Dr Tamez; h/o 3 cor stent prior to CABG and 3 cors stents since surg - reportedly, cor and graft status was stable at time of card cath in April 2021 prior to TAVR TAVR at [facility] in April 2021, apparently for Severe hardness of hearing Chronic joint and back pain that limits ambulation - presentation on 01/04/22 was mainly of L hip and knee pain and poor ambulatory status at home Thrombocytopenia of undetermined etiology Hypertension Hyperlipidemia Plan: * Treat with DAPT and beta-carli and statin * Keep on tele * Held off on enoxaparin because of thrombocytopenia. Hosp svce to manage thrombocytopenia and prophylaxis for DVT * Still trying to obtain cardiac records from [facility] * Monitor labs closely * At patient and family request, I spoke with his postal worker Dr Wang at [facility], and have requested transfer to Dr Wang's svce at [place]. He has kindly accepted. Arrangements are being made Clinical Quality Measures AMI/AHF: ASA po Prior to arrival: AKBAR Howard MD FACP FAC CCDS Jan 05, 2022 14:28
[2022-01-05] MEDS: ENOXAPARIN 40 MG/0.4 ML (LOVENOX) SYR SC SCH (15:13)
--- NOTE | 2022-01-05 19:03 | History & Physical-Hospitalist ---
History of Present Illness HPI/Chief Complaint Rojas Canela is an 81 year old male with PMH HTN, HLD, CAD s/p CABG and stents, aortic stenosis s/p TAVR, osteoarthritis, who presented with knee pain. He had a recent fall. He has not been getting around very well at home. He has had worsening pain since his fall. He did not disclose his chest pain until he got to the emergency room. He reports that he is still having chest pain at this time. It is located in the center of his chest. He is a poor historian and looks to his to answer most questions. He denies shortness of breath. He denies fevers. He has left arm weakness which his says is due to "frozen shoulder". He also has leg weakness left greater than right. They deny any history of stroke, but looking through his records there was an MRI in 2019 with two areas of subacute infarction. 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 Source: patient, family Exam Limitations: no limitations Date Seen 01/05/22 Time Seen by a Provider: 09:30 Attending Physician Cyrus Valles DO PCP Admitting Physician: Odin Oseguera MD Attending Physician: Odin Oseguera MD Referring Physician AKBAR OMER MD FACP [facility] CCDS Date of Admission Jan 04, 2022 at 12:56 Home Medications & Allergies Home Medications Reviewed patient Home Medication Reconciliation performed by pharmacy medication reconciliations global position system technician and/or nursing. Patients Allergies have been reviewed. Allergies Allergies Coded Allergies meperidine (Unverified Allergy, Severe, POSSIBLE RESP ISSUES, 01/07/18) metoclopramide (Unverified Allergy, Mild, SEVERE N/V, 01/07/18) Past [id number]-[id number] Hx Patient Social History Tobacco Use?: No Use of E-Cig and/or Vaping dev: No Substance use?: No Substance type: Caffeine Substance frequency: Once in a while Alcohol Use?: No Pt feels they are or have been: No Immunizations Up To Date Date of Influenza Vaccine: Nov 09, 2021 First/Initial COVID19 Vaccinat: 2020 Second COVID19 Vaccination Isael: 2020 Tetanus Booster (TDap): Unknown Hepatitis A: No Hepatitis B: No Date of Pneumonia Vaccine: Nov 19, 2015 Seasonal Allergies Seasonal Allergies: No Current Status Advance Directives: No Communicates: Verbally Primary Language: Comoran Preferred Spoken Language: Comoran Is interpretation needed?: No Sensory deficits: Hearing impairment Implanted or Applied Medical D: Orthopedic hardware, Pacemaker Past Medical History Surgeries: CABG, Coronary Stent, Joint Replacement, Orthopedic, Prostatectomy Coronary Artery Disease, Heart Attack, High Cholesterol, Hypertension Sexually Transmitted Disease: No HIV/AIDS: No Abdominal Hernia, Chronic Constipation, Diverticulosis Arthritis, Rheumatoid Arthritis, Chronic Back Pain Cataract Loss of Vision: Bilateral Hearing Impairment: Denies Prostate, Skin What Type of Treatment Did You: Surgical Intervention Blood Disorders: No Adverse Reaction/Blood Tranf: No Family Medical History No Pertinent Family Hx, Hypertension Review of Systems Constitutional: weakness EENTM: no symptoms reported Respiratory: no symptoms reported Cardiovascular: chest pain Gastrointestinal: no symptoms reported Physical Exam Physical Exam Vital Signs Vital Signs - First Documented 01/04/22 01/04/22 10:10 15:26 Temp 36.9 Pulse 68 Resp 18 B/P (MAP) 117/66 (83) Pulse Ox 98 O2 Delivery Room Air Capillary Refill : Less Than 3 Seconds Height, Weight, BMI Height: 5'5.00" Weight: 157lbs. 7.0oz. 71.909383qh; 23.32 BMI Method:Stated General Appearance: No Apparent Distress, Chronically ill HEENT: PERRL/EOMI, Pharynx Normal Neck: Normal Inspection, Supple Respiratory: No Respiratory Distress, Decreased Breath Sounds Cardiovascular: Regular Rate, Rhythm, Systolic Murmur Gastrointestinal: Normal Bowel Sounds, Non Tender, Soft Extremity: Normal Inspection, No Pedal Edema Neurologic/Psychiatric: Alert, Normal Mood/Affect Skin: Normal Color, Warm/Dry Results Results/Procedures Labs Laboratory Tests 01/04/22 10:37 01/05/22 03:33 Patient resulted labs reviewed. Imaging: Reviewed Imaging Films, Reviewed Imaging Report Assessment/Plan Admission Diagnosis NSTEMI Admission Status: Inpatient Order (span 2 midnights) Reason for Inpatient Admission: Cardiology evaluation Assessment and Plan NSTEMI CAD s/p CABG HTN HLD Aortic stenosis TAVR Troponin elevated, trended up Cardiology consulted ASA and Plavix Lipitor Dr. Omer arranged transfer to [place], awaiting transport Thrombocytopenia Platelets 79, decreased from baseline mild thrombocytopenia PT/INR/PTT normal Full dose anticoagulation deferred per Cardiology Continue prophylactic Lovenox Hold for platelets <[address] without evidence of acute stroke MRI Brain 2018 with two areas of infarction Goals of care discussion Code status discussed Recommended discussion with in setting of multiple acute issues and several comorbidities Osteoarthritis XR knee with small effusion, degenerative changes DVT prophylaxis: Lovenox Diagnosis/Problems Diagnosis/Problems (1) NSTEMI (non-ST elevation myocardial infarction) Status: Acute (2) HTN (hypertension) Status: Chronic (3) Hyperlipidemia Status: Chronic (4) CAD (coronary artery disease) Status: Chronic (5) Left arm weakness Status: Chronic (6) Left knee pain Status: Acute Qualifiers: Chronicity: acute Qualified Codes: M25.562 - Pain in left knee Clinical Quality Measures AMI/AHF: ASA po Prior to arrival: ODIN Ulloa MD Jan 05, 2022 19:03
[2022-01-05] MEDS: doxAzosin 4 MG (CARDURA) TAB PO SCH (20:09)
[2022-01-05] MEDS: MELATONIN 3 MG TABLET PO PRN (20:10)
[2022-01-05] MEDS: lisINopril 20 MG (PRINIVIL) TABLET PO SCH (20:11)
[2022-01-05] MEDS ORDERED: meTOproloL SUCCINATE 50 MG (TOPROL XL) TAB PO SCH (23:45)
[2022-01-06] VITALS (7 sets, daily range): BP systolic 128–178; BP diastolic 84–101
[2022-01-06] MEDS: ACETAMINOPHEN 325 MG TABLET PO PRN (04:43)
[2022-01-06 05:07] LABS: BASOPHILS % (AUTO) 0 % (0-10); EOSINOPHILS % (AUTO) 1 % (0-10); HEMATOCRIT 33 % (40-54); HEMOGLOBIN 11.2 g/dL (13.3-17.7); LYMPHOCYTES # (AUTO) 0.8 10^3/uL (1.0-4.0); LYMPHOCYTES % (AUTO) 19 % (12-44); MEAN CORPUSCULAR HEMOGLOBIN 30 pg (25-34); MEAN CORPUSCULAR HGB CONC 34 g/dL (32-36); MEAN CORPUSCULAR VOLUME 88 fL (80-99); MEAN PLATELET VOLUME 13.2 fL (9.0-12.2); MONOCYTES # (AUTO) 0.7 10^3/uL (0.0-1.0); MONOCYTES % (AUTO) 17 % (0-12); NEUTROPHILS # (AUTO) 2.6 10^3/uL (1.8-7.8); NEUTROPHILS % (AUTO) 61 % (42-75); PLATELET COUNT 90 10^3/uL (130-400); WHITE BLOOD COUNT 4.3 10^3/uL (4.3-11.0)
[2022-01-06 05:30] LABS: CALCIUM 10.8 MG/DL (8.5-10.1); CREATININE SERUM 0.85 MG/DL (0.60-1.30); MAGNESIUM 1.9 MG/DL (1.6-2.4); POTASSIUM 3.7 MMOL/L (3.6-5.0)
[2022-01-06] MEDS: POTASSIUM CL 10MEQ/50ML IVPB 50 ML IV SCH (05:33)
[2022-01-06] MEDS: MAGNESIUM 1 GM/100 ML IVPB 100 ML IV SCH (05:34)
[2022-01-06] MEDS: KCL 20 MEQ TAB (K-DUR) PO SCH (05:34)
--- NOTE | 2022-01-06 07:36 | Physical Therapy Progress Note ---
Therapy Progress Note Patient transferred to ICU with possible transfer to [place] on this date. PT will require new orders if patient stays and is deemed medically stable and able to actively participate with skilled therapy. ZEESHAN GRISSOM PT Jan 06, 2022 07:36
--- NOTE | 2022-01-06 08:56 | Progress Note - Cardiology ---
Cardiology SOAP Progress Note Subjective: Lying in bed No c/o CP this morning C/O mild SOB No c/o palpitations, dizziness Objective: I&O/Vital Signs 01/05/22 01/06/22 01/06/22 01/06/22 22:00 00:18 01:00 03:51 Pulse 63 70 63 64 Resp 18 15 13 B/P (MAP) 129/81 (97) 174/100 (124) 160/101 (120) O2 Delivery Room Air Room Air Room Air 01/06/22 01/06/22 04:37 07:03 Pulse 60 61 B/P (MAP) 178/96 (123) O2 Delivery Room Air 01/06/22 00:00 Intake Total 425 ml Output Total 650 ml Balance -225 ml Weight (Pounds): 157 Weight (Ounces): 7.0 Weight (Calculated Kilograms): 71.477105 Constitutional: AAO x 3, well-developed, well-nourished Respiratory: No accessory muscle use; other (fair to good, bilat air entry) Cardiovascular: regular rate-rhythm, S1 and S2, systolic murmur (2/6 MSM at card base) Gastrointestional: No tender; soft; No guarding, No rebound; audible bowel sounds Extremities: No clubbing, No cyanosis, No significant edema Neurologic/Psychiatric: oriented x 3, other (moves all limbs equally) Skin: No rash on exposed areas, No ulcerations on exposed areas Results/Procedures: Labs Laboratory Tests 01/06/22 04:35: White Blood Count 4.3, Red Blood Count 3.80L, Hemoglobin 11.2L, Hematocrit 33L, Mean Corpuscular Volume 88, Mean Corpuscular Hemoglobin 30, Mean Corpuscular Hemoglobin Concent 34, Red Cell Distribution Width 12.6, Platelet Count 90L, Mean Platelet Volume 13.2H, Immature Granulocyte % (Auto) 1, Neutrophils (%) (Auto) 61, Lymphocytes (%) (Auto) 19, Monocytes (%) (Auto) 17H, Eosinophils (%) (Auto) 1, Basophils (%) (Auto) 0, Neutrophils # (Auto) 2.6, Lymphocytes # (Auto) 0.8L, Monocytes # (Auto) 0.7, Eosinophils # (Auto) 0.0, Basophils # (Auto) 0.0, Immature Granulocyte # (Auto) 0.1, Sodium Level 139, Potassium Level 3.7, Chloride Level 109H, Carbon Dioxide Level 19L, Anion Gap 11, Blood Urea Nitrogen 17, Creatinine 0.85, Estimat Glomerular Filtration Rate 87, BUN/Creatinine Ratio 20, Glucose Level 83, Calcium Level 10.8H, Magnesium Level 1.9, Troponin I 0.206H Microbiology 01/04/22 Urine Culture - Final, Complete See Comments Laboratory Tests 01/04/22 10:37 01/05/22 03:33 01/06/22 04:35 A/P: Assessment: NSTEMI CAD - CABG at [facility] (2011) by Dr Tamez; h/o 3 cor stent prior to CABG and 3 cors stents since surg - reportedly, cor and graft status was stable at time of card cath in April 2021 prior to TAVR TAVR at [facility] in April 2021, apparently for Severe hardness of hearing Chronic joint and back pain that limits ambulation - presentation on 01/04/22 was mainly of L hip and knee pain and poor ambulatory status at home Thrombocytopenia of undetermined etiology Hypertension - uncontrolled HTN Hyperlipidemia Plan: * Continue with DAPT and beta-carli and statin * Keep on tele * Held off on enoxaparin because of thrombocytopenia. Hosp svce to manage thrombocytopenia and prophylaxis for DVT * Still trying to obtain cardiac records from [facility] * BP not well controlled despite increased dose of BB - add Norvasc * Monitor labs closely * At patient and family request, I spoke with his camera person Dr Wang at [facility], and have requested transfer to Dr Wang's svce at [place]. He has kindly accepted. Arrangements are being made, but may be delayed d/t jaquez sportation issues Clinical Quality Measures AMI/AHF: ASA po Prior to arrival: BARRON Ramso Jan 06, 2022 08:56
[2022-01-06] MEDS: NS IV 1000 ML 1,000 ML IV SCH ×3 (10:05→23:59)
[2022-01-06] MEDS: HYDROXYCHLOROQUINE 200 MG (PLAQUENIL) TAB PO SCH ×2 (10:05→17:22)
[2022-01-06] MEDS: ASPIRIN 81 MG CHEW (CHILDREN'S ASA) PO SCH (10:05)
[2022-01-06] MEDS: meTOprolol SUCCINATE 100 MG (TOPROL XL) TAB PO SCH (10:06)
[2022-01-06] MEDS: CLOPIDOGREL 75 MG (PLAVIX) TABLET PO SCH (10:06)
[2022-01-06] MEDS: amLODIPine 5 MG (NORVASC) TAB PO SCH (10:06)
[2022-01-06] MEDS: DOCUSATE SODIUM 100 MG (COLACE) CAP PO SCH ×2 (10:06→20:22)
[2022-01-06] MEDS: PANTOPRAZOLE 20 MG TABLET (PROTONIX) PO SCH (10:06)
[2022-01-06] MEDS: SENNOSIDES 8.6 MG (SENOKOT) TAB PO SCH ×2 (10:06→20:22)
--- NOTE | 2022-01-06 10:23 | Occ Therapy Progress Note ---
Therapy Progress Note Patient transferred to ICU with possible transfer to [place] on this date. OT will require new orders if patient stays and is deemed medically stable and able to actively participate with skilled therapy. Claudette Cook OT Jan 06, 2022 10:23
[2022-01-06] MEDS ORDERED: PANT20TA18 PO (11:59)
[2022-01-06] MEDS ORDERED: LISI20TA26 PO (11:59)
[2022-01-06] MEDS ORDERED: FAMO20TA5 PO (11:59)
--- NOTE | 2022-01-06 12:38 | Discharge Summary ---
Diagnosis/Chief Complaint Date of Admission Jan 04, 2022 at 12:56 Date of Discharge Admission Diagnosis NSTEMI Primary Care VallesCyrus DO Discharge Diagnosis (1) NSTEMI (non-ST elevation myocardial infarction) Status: Acute (2) HTN (hypertension) Status: Chronic (3) Hyperlipidemia Status: Chronic (4) CAD (coronary artery disease) Status: Chronic (5) Left arm weakness Status: Chronic (6) Left knee pain Status: Acute Discharge Summary Discharge Physical Exam Allergies: Coded Allergies: meperidine (Unverified Allergy, Severe, POSSIBLE RESP ISSUES, 01/07/18) metoclopramide (Unverified Allergy, Mild, SEVERE N/V, 01/07/18) Vitals & I&Os Vital Signs Date Time Temp Pulse Resp B/P (MAP) Pulse Ox O2 Delivery O2 Flow Rate FiO2 01/06/22 10:07 36.3 95 Room Air 01/06/22 08:00 60 21 174/98 (123) General Appearance: No Apparent Distress Cardiovascular: Regular Rate, Rhythm, No Murmur Gastrointestinal: Normal Bowel Sounds, Non Tender, Soft Neurologic/Psychiatric: Alert, Oriented x3 Hospital Course Patient was admitted to the hospital secondary to NSTEMI. He follows with cardiology at [place] and has a history of CABG there. He was seen in consultation by cardiology here but patient and family requested transfer to [place] to be seen by their cardiology team. He was accepted in transfer by Dr. Wang after Dr. Neely spoke with him on 01/05. Unfortunately due to EMS shortages his transfer was delayed. Labs (last 24 hrs) Laboratory Tests 01/06/22 04:35: White Blood Count 4.3, Red Blood Count 3.80L, Hemoglobin 11.2L, Hematocrit 33L, Mean Corpuscular Volume 88, Mean Corpuscular Hemoglobin 30, Mean Corpuscular Hemoglobin Concent 34, Red Cell Distribution Width 12.6, Platelet Count 90L, Mean Platelet Volume 13.2H, Immature Granulocyte % (Auto) 1, Neutrophils (%) (Auto) 61, Lymphocytes (%) (Auto) 19, Monocytes (%) (Auto) 17H, Eosinophils (%) (Auto) 1, Basophils (%) (Auto) 0, Neutrophils # (Auto) 2.6, Lymphocytes # (Auto) 0.8L, Monocytes # (Auto) 0.7, Eosinophils # (Auto) 0.0, Basophils # (Auto) 0.0, Immature Granulocyte # (Auto) 0.1, Sodium Level 139, Potassium Level 3.7, Chloride Level 109H, Carbon Dioxide Level 19L, Anion Gap 11, Blood Urea Nitrogen 17, Creatinine 0.85, Estimat Glomerular Filtration Rate 87, BUN/Creatinine Ratio 20, Glucose Level 83, Calcium Level 10.8H, Magnesium Level 1.9, Troponin I 0.206H Microbiology 01/04/22 Urine Culture - Final, Complete See Comments Patient resulted labs reviewed. Imaging: Reviewed Imaging Films, Reviewed Imaging Report Discussion & Recommendations Discharge Planning: >30 minutes discharge planning Discharge Home Medications: Active Scripts Active Reported Pantoprazole Sodium 20 Mg Tablet.dr 20 Mg PO HS Famotidine 20 Mg Tablet 20 Mg PO DAILY Lisinopril 20 Mg Tablet 20 Mg PO HS Doxazosin Mesylate 4 Mg Tablet 4 Mg PO HS Stool Softener (Docusate Sodium) 100 Mg Tablet 200 Mg PO DAILY PRN Clopidogrel (Clopidogrel Bisulfate) 75 Mg Tablet 75 Mg PO Q48H Hydroxychloroquine Sulfate 200 Mg Tablet 200 Mg PO BID Pravastatin Sodium 40 Mg Tablet 40 Mg PO HS Instructions to patient/family Please see electronic discharge instructions given to patient. Clinical Quality Measures AMI/AHF: ASA po Prior to arrival: No Problem Qualifiers (1) Left knee pain: Chronicity: acute Qualified Codes: M25.562 - Pain in left knee MIKE AYALA MD Jan 06, 2022 12:38
[2022-01-06] MEDS: ENOXAPARIN 40 MG/0.4 ML (LOVENOX) SYR SC SCH (15:22)
[2022-01-06] MEDS: doxAzosin 4 MG (CARDURA) TAB PO SCH (20:22)
[2022-01-06] MEDS: lisINopril 20 MG (PRINIVIL) TABLET PO SCH (20:22)
[2022-01-07] VITALS: BP 165/88
--- NOTE | 2022-01-07 01:50 | Progress Note ---
Standard Progress Note Progress Notes/Assess & Plan Date Seen by a Provider: Jan 07, 2022 Time Seen by a Provider: 01:50 Progress/Assessment & Plan called for agitation, hallucinations, QTc 360, will give small dose of IM Haldol MD RADHA Escobar JOSEPH K MD Jan 07, 2022 01:50
[2022-01-07] MEDS ORDERED: HALOPERIDOL 5 MG/ML (HALDOL) VIAL ONE (01:53)
[2022-01-07] MEDS ORDERED: HALOPERIDOL 5 MG/ML (HALDOL) VIAL IV ONE (02:00)
[2022-01-07] MEDS ORDERED: HALOPERIDOL 5 MG/ML (HALDOL) VIAL IM ONE (02:00)
[2022-01-07 04:04] VITALS: BP 159/89
[2022-01-07 04:57] LABS: BASOPHILS % (AUTO) 0 % (0-10); EOSINOPHILS % (AUTO) 1 % (0-10); HEMOGLOBIN 11.7 g/dL (13.3-17.7)
[2022-01-07 04:59] LABS: HEMATOCRIT 35 % (40-54); LYMPHOCYTES # (AUTO) 0.7 10^3/uL (1.0-4.0); LYMPHOCYTES % (AUTO) 13 % (12-44); MEAN CORPUSCULAR HEMOGLOBIN 30 pg (25-34); MEAN CORPUSCULAR HGB CONC 34 g/dL (32-36); MEAN CORPUSCULAR VOLUME 88 fL (80-99); MEAN PLATELET VOLUME 12.9 fL (9.0-12.2); MONOCYTES # (AUTO) 0.8 10^3/uL (0.0-1.0); MONOCYTES % (AUTO) 16 % (0-12); NEUTROPHILS # (AUTO) 3.6 10^3/uL (1.8-7.8); NEUTROPHILS % (AUTO) 69 % (42-75); PLATELET COUNT 96 10^3/uL (130-400); WHITE BLOOD COUNT 5.2 10^3/uL (4.3-11.0)
[2022-01-07 05:13] LABS: CALCIUM 10.6 MG/DL (8.5-10.1); CREATININE SERUM 0.83 MG/DL (0.60-1.30); MAGNESIUM 1.9 MG/DL (1.6-2.4); POTASSIUM 3.4 MMOL/L (3.6-5.0)
[2022-01-07] MEDS ORDERED: KCL 20 MEQ TAB (K-DUR) PO ONE (05:30)
[2022-01-07] MEDS: KCL 20 MEQ TAB (K-DUR) PO SCH (05:33)
[2022-01-07] MEDS: POTASSIUM CL 10MEQ/50ML IVPB 50 ML IV SCH (05:33)
[2022-01-07] MEDS: MAGNESIUM 1 GM/100 ML IVPB 100 ML IV SCH (05:33)
--- NOTE | 2022-01-07 07:24 | Physical Therapy Progress Note ---
Therapy Progress Note Patient awaiting transfer to [place] for continued care. PT will remove patient from services at this time. ZEESHAN GRISSOM PT Jan 07, 2022 07:24
[2022-01-07 07:53] VITALS: BP 167/104
[2022-01-07] MEDS: NS IV 1000 ML 1,000 ML IV SCH (08:39)
[2022-01-07] MEDS: SENNOSIDES 8.6 MG (SENOKOT) TAB PO SCH (08:40)
[2022-01-07] MEDS: DOCUSATE SODIUM 100 MG (COLACE) CAP PO SCH (08:40)
[2022-01-07] MEDS: HYDROXYCHLOROQUINE 200 MG (PLAQUENIL) TAB PO SCH (08:55)
[2022-01-07] MEDS: amLODIPine 5 MG (NORVASC) TAB PO SCH (08:56)
[2022-01-07] MEDS: ASPIRIN 81 MG CHEW (CHILDREN'S ASA) PO SCH (08:56)
[2022-01-07] MEDS: CLOPIDOGREL 75 MG (PLAVIX) TABLET PO SCH (08:56)
[2022-01-07] MEDS: meTOprolol SUCCINATE 100 MG (TOPROL XL) TAB PO SCH (08:56)
[2022-01-07] MEDS: PANTOPRAZOLE 20 MG TABLET (PROTONIX) PO SCH (08:56)
[2022-01-07 09:15] VITALS: BP 167/104
== END 2022-01-07 09:15 | disposition short-term general hospital (02) | DRG 281 ==
LOC: EDUNIT# 10:01 → ER 10:05 → CSD 12:56 → ICU 19:35
PROVIDERS: ADMIT Internal Medicine; ATTEND Internal Medicine
DX: I21.4 Non-ST elevation (NSTEMI) myocardial infarction (principal); R44.3 Hallucinations, unspecified; M16.12 Unilateral primary osteoarthritis, left hip; M17.12 Unilateral primary osteoarthritis, left knee; D69.6 Thrombocytopenia, unspecified; R29.898 Other symptoms and signs involving the musculoskeletal system; I25.10 Atherosclerotic heart disease of native coronary artery without angina pectoris; E78.00 Pure hypercholesterolemia, unspecified; I10 Essential (primary) hypertension; M06.9 Rheumatoid arthritis, unspecified; R45.1 Restlessness and agitation; H54.3 Unqualified visual loss, both eyes; H91.90 Unspecified hearing loss, unspecified ear; Z95.0 Presence of cardiac pacemaker; Z95.2 Presence of prosthetic heart valve; Z95.1 Presence of aortocoronary bypass graft; Z96.651 Presence of right artificial knee joint; Z96.642 Presence of left artificial hip joint
CPT/HCPCS: 36415; 70450; 71045; 73502; 73562; 80048; 80053; 80061; 81000; 83735; 83874; 84484; 85025; 85610; 85730; 87088; 93005; 93041; 93306